=== PATIENT | male | born 1950 | race Caucasian/White ===

== ENCOUNTER → 2020-08-07 15:10 | Outpatient (BNVA) | payer MEDICARE, SELFPAY | PROVIDERS: PCP Family Medicine; Visit Provider Urology | DX: Z01.818 Encounter for other preprocedural examination (principal); N40.1 Benign prostatic hyperplasia with lower urinary tract symptoms; N13.8 Other obstructive and reflux uropathy; C67.9 Malignant neoplasm of bladder, unspecified | CPT/HCPCS: 99212 ==

== ENCOUNTER → 2020-09-12 10:51 | Outpatient (BNVA) | payer MEDICARE, SELFPAY | PROVIDERS: PCP Family Medicine; Visit Provider Urology | DX: Z76.89 Persons encountering health services in other specified circumstances (principal) | CPT/HCPCS: 99212 ==

== ENCOUNTER 2020-11-07 06:35 | Outpatient (REF) | payer MEDICARE, SELFPAY ==
[2020-11-07 11:25] LABS: Estimated Average Glucose 94 mg/dL; Hemoglobin A1c % 4.9 %
[2020-11-07 11:48] LABS: Alanine Aminotransferase 36 U/L (0-40); Anion Gap 13 (12-20); Blood Urea Nitrogen 18 mg/dL (9-16); Carbon Dioxide 30 mmol/L (22-29); Chloride 106 mmol/L (96-108); Cholesterol 231 mg/dL; Estimated Glomerular Filt Rate > 60; Glucose Fasting 93 mg/dL (60-99); HDL Cholesterol 28 mg/dL; LDL Cholesterol Calculated 158 mg/dl; Potassium 4.1 mmol/L (3.3-5.1); Sodium 145 mmol/L (135-145); Triglycerides 225 mg/dL
[2020-11-07 12:25] LABS: Creatinine Urine 135.16 mg/dL; Microalbum/Creatinine Ratio Ur 134.6 ug/mg cr
== END 2020-11-07 06:36 | disposition home or self-care (01) ==
LOC: HO.HMGCLDS 06:35
PROVIDERS: PCP Family Medicine; Visit Provider Family Medicine
DX: E11.9 Type 2 diabetes mellitus without complications (principal); E78.00 Pure hypercholesterolemia, unspecified; I10 Essential (primary) hypertension; Z79.899 Other long term (current) drug therapy
CPT/HCPCS: 36415; 80051; 80061; 82043; 82550; 82565; 82947; 83036; 84460; 84520

== ENCOUNTER 2020-12-04 14:50 | Outpatient (REF) | payer MEDICARE, SELFPAY | END 2020-12-04 14:51 | disposition home or self-care (01) | LOC: CF 14:50 | PROVIDERS: PCP Family Medicine; Visit Provider Urology | DX: C67.9 Malignant neoplasm of bladder, unspecified (principal) | CPT/HCPCS: 52000; 81002; 88112; 99212 ==

== ENCOUNTER 2020-12-22 11:21 | Day surgery (SDC) | payer MEDICARE, SELFPAY ==
[2020-12-16 15:05] VITALS: BMI 38.0
--- NOTE | 2020-12-17 13:06 | HO.ANESPROP2 ---
Documented by User: Kenna Alexander 12/17/20 13:11 HPI - Anesthesia Eval Consult details Narrative: 70yo M for TUR Bladder Tumor,gemcitabine insertion Pt was cardiac cleared for TKA in 08/2020. (Didn't have knee surgery.) Cardiac status remains stable per telephone eval. PMFSH Active Problems Active Problems: All Active Problems (Updated 12/16/20 @ 15:14 by Jo Ann Nieves) Hydrocele (Acute) Bladder cancer (Acute) BPH w urinary obs/LUTS (Acute) Past Medical History Medical History (Updated 12/19/20 @ 10:54 by Kenna Alexander) Arthritis CAD (coronary artery disease) COVID-19 vaccine administered Elevated cholesterol GERD (gastroesophageal reflux disease) History of renal cell cancer Hx of bladder cancer On beta maria antonia at home Surgical History Surgical History (Updated 12/16/20 @ 15:13 by Jo Ann Nieves) History of bladder surgery History of nephrectomy, right Hx of cystoscopy Hx of heart artery stent Social History Social History (Updated 12/16/20 @ 15:15 by Jo Ann Nieves) Are you a primary respiratory care practitioner to a significant other at home: No Do you presently have visiting nurse or other home services: No Smoking Status: Never smoker Use of substances other than those prescribed or required for medical reasons: No Have you been hit, kicked, punched, or otherwise hurt by someone within the past year? If so, by whom?: No Advance Directives Information Provided: No Recently lost weight without trying: No Meds Allergies Allergy/AdvReac Type Severity Reaction Status Date / Time No Known Allergies Allergy Verified 12/16/20 15:05 [No Known Allergies*] Home Medications Medication Instructions Recorded Confirmed Last Taken Type carvedilol 6.25 mg tablet 6.25 mg PO BID 08/07/20 12/16/20 Unknown History gabapentin 600 mg tablet 600 mg PO BEDTIME 08/07/20 12/16/20 Unknown History isosorbide mononitrate 30 mg 30 mg PO DAILY 08/07/20 12/16/20 Unknown History tablet,extended release 24 hr losartan 50 mg tablet 50 mg PO DAILY 08/07/20 12/16/20 Unknown History omeprazole 20 mg capsule,delayed 20 mg PO DAILY 08/07/20 12/16/20 Unknown History release tramadol 50 mg tablet mg PO 08/07/20 Unknown History amlodipine 10 mg tablet 10 mg PO DAILY 09/12/20 12/16/20 Unknown History betamethasone, augmented 0.05 % appl TOPICAL BID 09/12/20 Unknown History topical cream docusate sodium 100 mg capsule 100 mg PO BID 09/12/20 Unknown History aspirin [Aspirin Low Dose] 81 mg PO DAILY 12/16/20 12/16/20 Unknown History hydralazine 25 mg PO TID 12/16/20 12/16/20 Unknown History loratadine 10 mg PO DAILY 12/16/20 12/16/20 Unknown History Exam Exam Date and Time: December 17, 2020 1306 Height,Weight and Vital Signs: Height 6 ft Weight 127.006 kg Pertinent Lab Results Pertinent Lab Results: Laboratory Tests 07/09/19 11/07/20 06:30 06:48 WBC 6.7 Hgb 12.7 L Hct 38.9 L Plt Count 194 Sodium 145 Potassium 4.1 Chloride 106 Carbon Dioxide 30 H BUN 18 H Creatinine 1.12 Narrative Narrative: EKG 08/2020 NSR No significant change compared to 07/2019 LVEF 62% in 2019 per cardiology office note Assessment and Plan Assessment Anesthesia Assessment: Chart Reviewed Documented by User: Cielo Salguero 12/22/20 13:40 [facility] Past Medical History Medical History (Updated 12/19/20 @ 10:54 by Kenna Alexander) Arthritis CAD (coronary artery disease) COVID-19 vaccine administered Elevated cholesterol GERD (gastroesophageal reflux disease) History of renal cell cancer Hx of bladder cancer On beta maria antonia at home Surgical History Surgical History (Updated 12/16/20 @ 15:13 by Jo Ann Nieves) History of bladder surgery History of nephrectomy, right Hx of cystoscopy Hx of heart artery stent Social History Social History (Updated 12/16/20 @ 15:15 by Jo Ann Nieves) Are you a primary respiratory care practitioner to a significant other at home: No Do you presently have visiting nurse or other home services: No Smoking Status: Never smoker Use of substances other than those prescribed or required for medical reasons: No Have you been hit, kicked, punched, or otherwise hurt by someone within the past year? If so, by whom?: No Advance Directives Information Provided: No Recently lost weight without trying: No Meds Allergies Allergy/AdvReac Type Severity Reaction Status Date / Time No Known Allergies Allergy Verified 12/16/20 15:05 [No Known Allergies*] Home Medications Medication Instructions Recorded Confirmed Last Taken Type carvedilol 6.25 mg tablet 6.25 mg PO BID 08/07/20 12/16/20 Unknown History gabapentin 600 mg tablet 600 mg PO BEDTIME 08/07/20 12/16/20 Unknown History isosorbide mononitrate 30 mg 30 mg PO DAILY 08/07/20 12/16/20 Unknown History tablet,extended release 24 hr losartan 50 mg tablet 50 mg PO DAILY 08/07/20 12/16/20 Unknown History omeprazole 20 mg capsule,delayed 20 mg PO DAILY 08/07/20 12/16/20 Unknown History release tramadol 50 mg tablet mg PO 08/07/20 Unknown History amlodipine 10 mg tablet 10 mg PO DAILY 09/12/20 12/16/20 Unknown History betamethasone, augmented 0.05 % appl TOPICAL BID 09/12/20 Unknown History topical cream docusate sodium 100 mg capsule 100 mg PO BID 09/12/20 Unknown History aspirin [Aspirin Low Dose] 81 mg PO DAILY 12/16/20 12/16/20 Unknown History hydralazine 25 mg PO TID 12/16/20 12/16/20 Unknown History loratadine 10 mg PO DAILY 12/16/20 12/16/20 Unknown History Exam Airway Mallampati Class: II (Cap lower mouth) TM Dist: >3cm Neck ROM: Full Heart: RRR Lungs: CTA BL Assessment and Plan Assessment Anesthesia Assessment: Anesthesia Plan Discussed and Chart Reviewed Final Anesthetic Review NPO: Yes ASA Class: III Final Preanesthetic Review: Meds/Allgs Chart Reviewed and Consent Obtained/Reviewed Patient Risk: Intermediate Procedure Risk: Intermediate Anesthetic Plan Anesthetic Plan: GA Disposition: Standard PACU
[2020-12-22] VITALS (10 sets, daily range): BP systolic 147–179; BP diastolic 90–110; PULSE 66–82; RESP 14–18; TEMP 36.3–36.6; O2SAT 92–97
[2020-12-22] MEDS: levoFLOXacin 500 MG TABLET PO (12:16)
[2020-12-22] MEDS: Lactated Ringers 1,000 ML 50 ML IV (12:23)
--- NOTE | 2020-12-22 13:54 | MHC.SHP ---
Pre-Procedural Eval Section A The patient is an INPATIENT: No Changes since office visit: No Cold of Flu in the past 2 weeks, No New Medical Problems, No Changes in Medication and No Patient answered all questions The History & Physical has been completed within 30 days and I have reviewed it.: Yes Section B Chief Complaint: bladder cancer Allergies: Allergies Allergy/AdvReac Type Severity Reaction Status Date / Time No Known Allergies Allergy Verified 12/16/20 15:05 [No Known Allergies*] Plan Diagnosis/Plan: Unchanged (cysto, TURBT and gemcitabine) I have reviewed the history and physical and performed a pertinent physical examination on my patient. No changes have occurred unless specified.
--- NOTE | 2020-12-22 14:53 | PM.OP ---
Brief Operative Note Date of Service: 12/22/20 Pre-op diagnosis: Recurrent bladder tumor Post-op diagnosis: same Procedure: 1. TURBT 2. Gemcitabine placement Surgeon: Charan Baker MD Anesthesia: GLMA Estimated blood loss (mL): 0 Pathology: other Condition: stable Disposition: same day
--- NOTE | 2020-12-22 14:54 | P.OP_ITS ---
Operative Note Operative Note Date of Service: 12/22/20 Narrative: PreOperative Diagnosis: Recurrent bladder tumor Post Operative Diagnosis: Recurrent bladder tumor Procedure: TURBT, mitomycin-C installation Surgeon: Dr Charan Baker Anesthesia: General Indications for procedure: Superficial bladder cancer. Recurring tumors seen in office. Recommendation for TURBT and repeat gemcitabine. Procedure: After informed consent was verified the patient was brought to the operating room and placed in a supine position. Anesthesia was administered per protocol. Patient was placed in modified dorsal lithotomy position and prepped and draped in sterile fashion. Safety pause time-out performed. Antibiotics have been given. Resectoscope was introduced per urethra. The 1st lesion was seen on the side of urethra approximately [address] on the left side. We went past this in the 2nd lesion was at the bladder neck junction running back towards the left ureteric orifice. TURBT was performed on the lesion running up to the bladder junction. Was within 1 cm of the left ureteric orifice. There were no other lesions seen within the bladder. This was medium-sized. We came back along prostatic fossa. There was the 2 other small lesions coming down over the neck the bladder into the prostatic fossa. The previously been a TURP performed. The final area with the lesion was on the urethra were pedunculated lesion was on the sidewall. This was resected and fulgurated. Bladder tumor was collected and sent for analysis. A [address] [place] [address] Rosa catheter was placed at the completion of the procedure and 2 g gemcitabine 100 cc normal saline was instilled. This will sit for 60 minutes and then be washed through the bladder with 3 L of normal saline. Patient was transferred in stable condition to the recovery area. Pathology: Bladder tumor Drains: Three way Rosa catheter with gemcitabine
[2020-12-22] MEDS: Labetalol HCL 100 MG/20 ML VIAL IVPUSH (15:05)
[2020-12-22] MEDS: fentaNYL citrate/PF 100 MCG/2 ML VIAL 50 MCG IVPUSH (15:15)
== END 2020-12-22 17:26 | disposition home or self-care (01) ==
PROVIDERS: PCP Family Medicine; Visit Provider Urology
PROC: 0TBB8ZZ Excision of Bladder, Via Natural or Artificial Opening Endoscopic (ICD-10-PCS; CPT 52235; principal; 2020-12-22 13:00)
DX: C67.9 Malignant neoplasm of bladder, unspecified (principal); Z85.528 Personal history of other malignant neoplasm of kidney; Z90.5 Acquired absence of kidney; Z79.82 Long term (current) use of aspirin; Z79.899 Other long term (current) drug therapy
CPT/HCPCS: 52235; 51720; 88307; J1100; J2405; J3010; J9201

== ENCOUNTER 2020-12-25 07:25 | Outpatient (REF) | payer MEDICARE, SELFPAY ==
--- NOTE | ~2020-12-25 | CT_ITS ---
EXAMINATION: CT ABDOMEN AND PELVIS WITHOUT AND WITH CONTRAST CLINICAL INFORMATION: Gross hematuria. R 31.0. Prior history right urinary tract transitional cell cancer. COMPARISON: CT abdomen and pelvis without and with contrast 06/21/2019. TECHNIQUE: Noncontrast CT of the abdomen and pelvis is performed followed by split bolus contrast-enhanced images using 85 mL Omnipaque 350 contrast.? Postcontrast imaging is performed during the combined nephrogram and excretion phase. Sagittal and coronal reformatted images were obtained on the technologist's workstation for both the precontrast and postcontrast phases. This CT examination was performed using dose optimization techniques as appropriate, variously including the following: *Automated exposure control *Adjustment of mA and/or kV according to patient size (this includes techniques or standardized protocols for targeted exams where dose is matched to indication/reason for exam; i.e. extremities or head) *Use of iterative reconstruction technique DLP: 1536 mGy-cm FINDINGS: LUNG BASES: The visualized lung bases are unremarkable. LIVER, GALLBLADDER, AND BILIARY TREE: The liver is normal in size, shape, and attenuation. No focal hepatic lesion or biliary ductal dilatation is present. There are small dependent calculi in the gallbladder again seen. No gallbladder wall thickening or pericholecystic inflammatory changes. Common duct is unremarkable. PANCREAS: Unremarkable. SPLEEN: Normal in size and homogeneous. Incidental splenule again noted left upper quadrant 1.8 cm. ADRENAL GLANDS: Unremarkable. KIDNEYS AND URETERS: Prior right nephrectomy. No mass right renal bed. The left kidney measures 15.3 x 7.4 x 9.2 cm and shows normal parenchymal enhancement with normal thickness. There is a punctate cortical cyst posterior midpole approximately 0.6 cm similar to prior exam 06/21/2019. Again, there are multiple parapelvic cysts in the left renal sinus. There is no left urinary tract calculi, hydronephrosis, hydroureter, or perinephric stranding. No mucosal thickening or filling defect. BLADDER: Unremarkable. GASTROINTESTINAL TRACT: No bowel obstruction or inflammatory changes in the bowel or mesentery. Normal appendix. No ascites or fluid collection. Diverticulosis distal descending and sigmoid colon. ABDOMINAL WALL: No significant hernia is appreciated. LYMPH NODES: No interval lymphadenopathy. Again, there are stable nodes central mesentery and portal caval space, largest 1.3 cm short axis, coronal series . Small solitary inguinal nodes stable, right 1.2 cm. No interval retroperitoneal adenopathy. VASCULAR: Unremarkable. PELVIC VISCERA: Unremarkable. OSSEUS STRUCTURES: Unremarkable. CT/CT urogram IMPRESSION: 1. Status post right nephrectomy. No interval adenopathy. 2. Unremarkable left urinary tract. Stable parapelvic cysts and tiny cortical cyst. No visible mucosal lesion or calculi.
[2020-12-25 08:11] LABS: Urine Cytology See Pathology rpt
[2020-12-25 08:47] LABS: Anion Gap 12 (12-20); Blood Urea Nitrogen 22 mg/dL (9-16); Calcium 8.6 mg/dL (8.4-10.2); Carbon Dioxide 28 mmol/L (22-29); Chloride 108 mmol/L (96-108); Estimated Glomerular Filt Rate 58; Glucose Fasting 102 mg/dL (60-99); Potassium 4.5 mmol/L (3.3-5.1); Sodium 143 mmol/L (135-145)
== END 2020-12-25 07:26 | disposition home or self-care (01) ==
LOC: HO.CT 07:25
PROVIDERS: Visit Provider Urology
DX: C67.9 Malignant neoplasm of bladder, unspecified (principal); R31.0 Gross hematuria
CPT/HCPCS: 36415; 74178; 80048; 88112; Q9967

== ENCOUNTER → 2021-01-13 14:30 | Outpatient (BNVA) | payer MEDICARE, SELFPAY | PROVIDERS: PCP Family Medicine; Visit Provider Urology | DX: C67.9 Malignant neoplasm of bladder, unspecified (principal); C79.00 Secondary malignant neoplasm of unspecified kidney and renal pelvis; E78.00 Pure hypercholesterolemia, unspecified; Z90.5 Acquired absence of kidney | CPT/HCPCS: 99212 ==

== ENCOUNTER 2021-04-14 07:39 | Outpatient (REF) | payer MEDICARE, SELFPAY ==
--- NOTE | 2021-04-14 07:46 | ECG_ITS ---
Test Reason : PREOP Blood Pressure : / mmHG Vent. Rate : 069 BPM Atrial Rate : 069 BPM P-R Int : 158 ms QRS Dur : 102 ms QT Int : 430 ms P-R-T Axes : 016 013 055 degrees QTc Int : 460 ms Normal sinus rhythm Normal ECG No previous ECGs available Referred By: Topher Cuadra Electronically Signed By:CAMI PRASAD
[2021-04-14 07:56] LABS: MANUAL DIFF FLAG NO
[2021-04-14 07:59] LABS: Basophils Percent Auto 0.5 % (0-2); Eosinophils Absolute Auto 0.3 X10*3/uL (0.0-0.4); Eosinophils Percent Auto 4.7 % (0-4); Hematocrit 41.7 % (42-52); Hemoglobin 13.5 g/dl (14.0-18.0); Imm Gran Abs Auto 0.02 X10*3/uL (0.00-0.03); Imm Gran Pct Auto 0.3 % (0.0-0.4); Lymphocytes Absolute Auto 1.4 X10*3/uL (1.2-4.9); Lymphocytes Percent Auto 20.9 % (20-40); Mean Corpuscular HGB Conc 32.4 g/dl (31.0-36.0); Mean Corpuscular Hemoglobin 30.8 pg (27.0-33.0); Mean Platelet Volume 9.8 fL (9.4-12.4); Monocytes Absolute Auto 0.5 X10*3/uL (0.1-1.2); Monocytes Percent Auto 7.7 % (2-11); Neutrophils Absolute Auto 4.3 X10*3/uL (2.0-8.3); Neutrophils Percent Auto 65.9 % (45-73); Platelet Count 166 X10*3/uL (160-400); Red Blood Count 4.39 X10*6/uL (4.60-5.80); Red Cell Distribution Width 13.8 % (11.0-16.0); White Blood Count 6.6 X10*3/uL (4.8-10.8)
[2021-04-14 08:18] LABS: Anion Gap 13 (12-20); Blood Urea Nitrogen 18 mg/dL (9-16); Calcium 9.1 mg/dL (8.4-10.2); Carbon Dioxide 27 mmol/L (22-29); Chloride 107 mmol/L (96-108); Estimated Glomerular Filt Rate > 60; Glucose Random 109 mg/dL (60-115); Potassium 4.3 mmol/L (3.3-5.1); Sodium 143 mmol/L (135-145)
[2021-04-14 08:26] LABS: Glucose Urine UA NEG (NEG); Leukocyte Esterase Urine NEG (NEG); Nitrite Urine NEG (NEG); PH 5.5 (5.0-8.0); Specific Gravity - Urine >= 1.030 (1.005-1.025); Urine Blood TRACE (NEG); Urine Ketones NEG (NEG); Urine Protein TRACE MG/DL (NEG-TRACE)
[2021-04-14 08:28] LABS: Appearance Urine CLEAR; Color Urine YELLOW
[2021-04-14 08:47] LABS: Estimated Average Glucose 114 mg/dL; Hemoglobin A1c % 5.6 %
== END 2021-04-14 07:40 | disposition home or self-care (01) ==
LOC: HO.LAB 07:39
PROVIDERS: PCP Family Medicine; Visit Provider Family Medicine
DX: Z01.818 Encounter for other preprocedural examination (principal)
CPT/HCPCS: 36415; 80048; 81001; 83036; 85025; 93005

== ENCOUNTER → 2021-04-17 12:50 | Outpatient (BNVA) | payer MEDICARE, SELFPAY | PROVIDERS: PCP Family Medicine; Visit Provider Urology | DX: C67.9 Malignant neoplasm of bladder, unspecified (principal) | CPT/HCPCS: 52000; 99212 ==

== ENCOUNTER 2021-07-28 08:52 | Outpatient (REF) | payer MEDICARE, SELFPAY ==
[2021-07-28 11:39] LABS: MANUAL DIFF FLAG NO
[2021-07-28 11:50] LABS: Basophils Percent Auto 0.5 % (0-2); Eosinophils Absolute Auto 0.4 X10*3/uL (0.0-0.4); Eosinophils Percent Auto 6.1 % (0-4); Hematocrit 42.4 % (42-52); Hemoglobin 13.2 g/dl (14.0-18.0); Imm Gran Abs Auto 0.01 X10*3/uL (0.00-0.03); Imm Gran Pct Auto 0.2 % (0.0-0.4); Lymphocytes Absolute Auto 1.3 X10*3/uL (1.2-4.9); Lymphocytes Percent Auto 20.4 % (20-40); Mean Corpuscular HGB Conc 31.1 g/dl (31.0-36.0); Mean Corpuscular Hemoglobin 28.9 pg (27.0-33.0); Mean Corpuscular Volume 92.8 fL (80-98); Mean Platelet Volume 10.8 fL (9.4-12.4); Monocytes Absolute Auto 0.5 X10*3/uL (0.1-1.2); Monocytes Percent Auto 8.3 % (2-11); Neutrophils Absolute Auto 4.2 X10*3/uL (2.0-8.3); Neutrophils Percent Auto 64.5 % (45-73); Platelet Count 179 X10*3/uL (160-400); Red Blood Count 4.57 X10*6/uL (4.60-5.80); Red Cell Distribution Width 13.4 % (11.0-16.0); White Blood Count 6.4 X10*3/uL (4.8-10.8)
[2021-07-28 12:02] LABS: Estimated Glomerular Filt Rate > 60
[2021-07-28 12:05] LABS: Appearance Urine HAZY; Color Urine YELLOW; Glucose Urine UA NEG (NEG); Leukocyte Esterase Urine NEG (NEG); Nitrite Urine NEG (NEG); Specific Gravity - Urine 1.025 (1.005-1.025); Urine Blood TRACE (NEG); Urine Ketones NEG (NEG); Urine Protein 1+ MG/DL (NEG-TRACE)
[2021-07-28 12:07] LABS: Estimated Average Glucose 108 mg/dL; Hemoglobin A1c % 5.4 %
[2021-07-28 12:24] LABS: Anion Gap 12 (12-20); Blood Urea Nitrogen 16 mg/dL (9-16); Carbon Dioxide 30 mmol/L (22-29); Chloride 104 mmol/L (96-108); Glucose Fasting 100 mg/dL (60-99); Potassium 4.4 mmol/L (3.3-5.1); Sodium 142 mmol/L (135-145)
[2021-07-28 12:37] LABS: WBC Urine 0-2 /HPF (0-4)
== END 2021-07-28 08:53 | disposition home or self-care (01) ==
LOC: HO.HMGCLDS 08:52
PROVIDERS: Urology; PCP Family Medicine; Visit Provider Family Medicine
DX: I10 Essential (primary) hypertension (principal); D64.9 Anemia, unspecified; E11.9 Type 2 diabetes mellitus without complications; N26.1 Atrophy of kidney (terminal); C67.9 Malignant neoplasm of bladder, unspecified
CPT/HCPCS: 36415; 80051; 81001; 82565; 82947; 83036; 84520; 85025

== ENCOUNTER → 2021-08-21 14:45 | Outpatient (BNVA) | payer MEDICARE, SELFPAY | PROVIDERS: PCP Family Medicine; Visit Provider Urology | DX: N40.1 Benign prostatic hyperplasia with lower urinary tract symptoms (principal); N13.8 Other obstructive and reflux uropathy; C67.9 Malignant neoplasm of bladder, unspecified; C66.9 Malignant neoplasm of unspecified ureter | CPT/HCPCS: 52000; 99212 ==

== ENCOUNTER → 2021-11-19 08:39 | Outpatient (BNVA) | payer MEDICARE, SELFPAY | PROVIDERS: Visit Provider Urology | DX: N43.3 Hydrocele, unspecified (principal); C67.9 Malignant neoplasm of bladder, unspecified | CPT/HCPCS: 52000; 99212 ==

== ENCOUNTER 2021-12-14 09:32 | Day surgery (SDC) | payer MEDICARE, SELFPAY ==
[2021-12-07 20:14] VITALS: BMI 40.0
--- NOTE | 2021-12-11 13:33 | PC.NURSE ---
verified with Opal in pharmacy that order has been received for gemcitabine.
[2021-12-14] VITALS (7 sets, daily range): BP systolic 122–195; BP diastolic 81–106; PULSE 78–87; RESP 18–20; TEMP 36.4–36.6; O2SAT 94–95
--- NOTE | 2021-12-14 10:51 | PC.NURSE ---
ANESTHESIA AWARE PT STS ATE ANTONIETTA SMITH HAD N/V/D LAST NIGHT DENIES FEVER CHILLS RESOLVED SYMPTOMS
--- NOTE | 2021-12-14 11:25 | MHC.SHP ---
Pre-Procedural Eval Section A Date of Service: 12/14/21 The patient is an INPATIENT: No Changes since office visit: No Cold of Flu in the past 2 weeks, No New Medical Problems, No Changes in Medication and No Patient answered all questions The History & Physical has been completed within 30 days and I have reviewed it.: Yes Section B Chief Complaint: hydrocele, neoplasm of bladder Details of Present Illness: right hydrocele, bladder cancer lesion on urethra. Allergies: Allergies Allergy/AdvReac Type Severity Reaction Status Date / Time No Known Allergies Allergy Verified 11/19/21 08:55 [No Known Allergies*] Plan Diagnosis/Plan: Unchanged ( Right hydrocelectomy followed by cystoscopy with removal of small bladder tumor from urethra and gemcitabine installation) I have reviewed the history and physical and performed a pertinent physical examination on my patient. No changes have occurred unless specified.
--- NOTE | 2021-12-14 11:58 | HO.ANESPROP2 ---
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 (Acute) Denies recent chest pain Past Medical History Medical History (Updated 12/07/21 @ 20:12 by Clarita Moore RN) Arthritis CAD (coronary artery disease) COVID-19 vaccine administered Elevated cholesterol GERD (gastroesophageal reflux disease) History of renal cell cancer Hx of bladder cancer Hypertension On beta maria antonia at home Family History Family history of problems with anesthesia: No Surgical History Surgical History (Updated 12/08/21 @ 08:44 by Radha Mata RN) History of bladder surgery History of nephrectomy, right History of total left knee replacement (TKR) Hx of cystoscopy Hx of heart artery stent History of Problems with Anesthesia: No Social History Social History Are you a primary complex care nurse practitioner to a significant other at home: No Do you presently have visiting nurse or other home services: No Patient Tobacco Use Status: Never used Tobacco Use of substances other than those prescribed or required for medical reasons: No Are you DNR?: No Advance Directives: No Advance Directives Information Provided: No Advance Directives on File: No Recently lost weight without trying: No Nutrition Risks: No Nutritional Risk Meds Allergies Allergy/AdvReac Type Severity Reaction Status Date / Time No Known Allergies Allergy Verified 11/19/21 08:55 [No Known Allergies*] Active Medications: Current Medications Gemcitabine HCl 1,000 mg/ (Sodium Chloride) 50 mls @ 50 mls/hr INTRAVESIC ONCE PAIGE Stop: 12/14/21 23:59 Gemcitabine HCl 1,000 mg/ (Sodium Chloride) 50 mls @ 50 mls/hr INTRAVESIC ONCE PAIGE Stop: 12/14/21 23:59 Levofloxacin (Levaquin) 500 mg in 100 mls @ 100 mls/hr IV PREOP ONE Stop: 12/14/21 12:45 Lidocaine HCl (Lidocaine Hcl 2 % Urojet 10 Ml Jel.Pf.Adilson) 10 ml TOPICAL ONCE PAIGE Stop: 12/14/21 23:59 Home Medications Medication Instructions Recorded Confirmed Last Taken Type isosorbide mononitrate 30 mg 30 mg PO DAILY 08/07/20 12/07/21 12/14/21 History tablet,extended release 24 hr losartan 50 mg tablet 50 mg PO DAILY 08/07/20 12/07/21 Unknown History omeprazole 20 mg capsule,delayed 20 mg PO DAILY 08/07/20 12/07/21 12/14/21 History release tramadol 50 mg tablet 50 mg PO NEEDED 08/07/20 12/07/21 Unknown History amlodipine 10 mg tablet 10 mg PO DAILY 09/12/20 12/07/21 12/14/21 History betamethasone, augmented 0.05 % 1 appl TOPICAL BID 09/12/20 12/07/21 Unknown History topical cream aspirin 81 mg tablet,delayed 81 mg PO DAILY 12/16/20 12/07/21 12/08/21 History release (Aspirin Low Dose) loratadine 10 mg tablet 10 mg PO DAILY 12/16/20 12/07/21 Unknown History gabapentin 600 mg tablet 600 mg PO BEDTIME tab 01/13/21 12/07/21 Unknown History blood sugar diagnostic #10 ea 04/17/21 Unknown History carvedilol 25 mg tablet 50 mg PO BID 04/17/21 12/07/21 Unknown History gabapentin 300 mg capsule 300 mg PO DAILY 04/17/21 12/07/21 Unknown History hydralazine 50 mg tablet 50 mg PO TID 04/17/21 12/07/21 12/14/21 History Exam Exam Date and Time: December 14, 2021 1158 Height,Weight and Vital Signs: Height 6 ft Weight 133.81 kg Last Vital Signs Temp 98 F 12/14/21 10:35 Pulse 84 12/14/21 10:35 Resp 19 12/14/21 10:35 BP 143/83 H 12/14/21 10:50 Pulse Ox 95 12/14/21 10:35 Airway Mallampati Class: II TM Dist: >3cm Neck ROM: Full Heart: RRR Lungs: CTAB Assessment and Plan Assessment Anesthesia Assessment: Anesthesia Plan Discussed and Chart Reviewed Final Anesthetic Review Family History of Problems with Anesthesia: No History of Problems with Anesthesia: No NPO: Yes ASA Class: III Final Preanesthetic Review: No Changes in Pt Med Stat, Meds/Allgs Chart Reviewed, Consent Obtained/Reviewed and Anes Risks/Benef Reviewed Patient Risk: Intermediate Procedure Risk: Low Assessment/Block/Sedation in SS: Assess/Block/Sedation-SS Anesthetic Plan Anesthetic Plan: GA Disposition: Standard PACU
--- NOTE | 2021-12-14 12:00 | W.PM.OPN ---
Operative Note Operative Note Date of Service: 12/14/21 Narrative: PreOperative Diagnosis: right hydrocele with superficial transitional cell carcinoma of urethra Post Operative Diagnosis: above Procedure: Right Hydrocelectomy, Cystoscopy with removal of urethral bladder cnacer and fulgeration Surgeon: Dr Charan Baker Anesthesia: General Indications for procedure: Hydrocele with persistent discomfort right side with urethral bladder cancer of pendulous urethra Procedure: After informed consent was verified the patient was brought to the operating room and placed in a supine position. Anesthesia was administered per protocol. Patient was appropriately shaved and genitals were prepped and draped in sterile fashion. Safety pause time-out was performed. Antibiotics being given. Local anesthetic was infiltrated under the skin in a horizontal fashion on the scrotum. Skin incision was made using a blade through the subdermal layer. The tunica around the testicle was elevated and dissected free from surrounding tissue. The avascular plane around the tunica was entered and using a wet sponge blunt dissection was performed. Any small bleeding perforators were cauterized. The testicle was delivered out of the scrotum and opened in a longitudinal fashion.. Fluid was removed. The testicle sac was inverted. Excess thickened sac was dissected and removed using a Thunderbeat cautery instrument to minimize porst procedure bleeding. A bottle neck procedure was performed to approximate edges using a running 3-0 Vicryl suture. Skin edges of the tunica were cauterized carefully in order to try to minimize postprocedure hematoma. Small accessory appendices were removed from the head of epididymis. The testicle with resected sac was placed back into a dependent portion of the scrotum. Overlying skin fascia layer was closed with a running 3-0 Vicryl suture. Skin was closed with interrupted 4-0 chromic sutures. Cystoscopy was performed. At the base of the pendulous urethra a 1 cm transitional cell carcinoma was seen on a stalk attached to the urethra. Using a pair of biopsy forceps the 1 cm transitional cell carcinoma was grasped and removed. Bugby fulguration was then performed. Specimen sent for pathology. Soft fluff sponges were placed with mesh pants as dressing. Local anesthetic was placed in inguinal cord for post procedure pain relief. Patient tolerated procedure well was extubated in operating room transferred in stable condition to the recovery area Pathology: Hydrocele sac, bladder cancer specimen Drains: none
[2021-12-14] MEDS: Acetaminophen 325 MG TABLET 650 MG PO (14:55)
[2021-12-14] MEDS: Phenazopyridine HCL 100 MG TABLET PO (14:55)
== END 2021-12-14 15:29 | disposition home or self-care (01) ==
PROVIDERS: PCP Family Medicine; Visit Provider Urology
PROC: 0TJB8ZZ Inspection of Bladder, Via Natural or Artificial Opening Endoscopic (ICD-10-PCS; CPT 52000; principal; 2021-12-14 12:20)
PROC: (CPT 55060; 2021-12-14 12:20)
DX: C68.0 Malignant neoplasm of urethra (principal); N43.3 Hydrocele, unspecified; D17.6 Benign lipomatous neoplasm of spermatic cord; Z85.528 Personal history of other malignant neoplasm of kidney; Z90.5 Acquired absence of kidney; I10 Essential (primary) hypertension; E78.00 Pure hypercholesterolemia, unspecified; I25.10 Atherosclerotic heart disease of native coronary artery without angina pectoris; Z98.61 Coronary angioplasty status; Z79.82 Long term (current) use of aspirin; Z79.899 Other long term (current) drug therapy
CPT/HCPCS: 55040; 52234; 88304; 88307; J1956; J2370; J2405; J3010; J9201

== ENCOUNTER 2022-01-06 08:15 | Outpatient (REF) | payer MEDICARE, SELFPAY ==
[2022-01-06 12:55] LABS: Anion Gap 11 (12-20); Blood Urea Nitrogen 19 mg/dL (9-16); Carbon Dioxide 32 mmol/L (22-29); Chloride 106 mmol/L (96-108); Estimated Glomerular Filt Rate > 60; Potassium 4.3 mmol/L (3.3-5.1); Sodium 145 mmol/L (135-145)
== END 2022-01-06 08:16 | disposition home or self-care (01) ==
LOC: HO.HMGCLDS 08:15
PROVIDERS: PCP Family Medicine; Visit Provider Family Medicine
DX: I10 Essential (primary) hypertension (principal)
CPT/HCPCS: 36415; 80051; 82565; 84520

== ENCOUNTER → 2022-02-17 11:05 | Outpatient (BNVA) | payer MEDICARE, SELFPAY | PROVIDERS: PCP Family Medicine; Visit Provider Urology | DX: N40.1 Benign prostatic hyperplasia with lower urinary tract symptoms (principal); N13.8 Other obstructive and reflux uropathy | CPT/HCPCS: 99212 ==

== ENCOUNTER 2022-03-30 08:07 | Outpatient (REF) | payer MEDICARE, SELFPAY ==
[2022-03-30 12:00] LABS: Estimated Average Glucose 105 mg/dL; Hemoglobin A1c % 5.3 %
[2022-03-30 12:13] LABS: Alanine Aminotransferase 23 U/L (0-40); Aspartate Amino Transferase 18 U/L (5-37); Cholesterol 217 mg/dL; Glucose Fasting 106 mg/dL (60-99); HDL Cholesterol 26 mg/dL; LDL Cholesterol Calculated 150 mg/dl; Triglycerides 205 mg/dL
== END 2022-03-30 08:08 | disposition home or self-care (01) ==
LOC: HO.HMGCLDS 08:07
PROVIDERS: Absent Provider Internal Medicine Cardiovascular Disease; PCP Family Medicine; Visit Provider Family Medicine
DX: E78.00 Pure hypercholesterolemia, unspecified (principal); E11.9 Type 2 diabetes mellitus without complications; K75.81 Nonalcoholic steatohepatitis (NASH)
CPT/HCPCS: 36415; 80061; 82947; 83036; 84450; 84460

== ENCOUNTER 2022-05-21 09:55 | Outpatient (REF) | payer MEDICARE, SELFPAY ==
[2022-05-21 16:36] LABS: Urine Cytology See Pathology rpt
== END 2022-05-21 09:56 | disposition home or self-care (01) ==
LOC: HO.LAB 09:55
PROVIDERS: Visit Provider Urology
DX: C67.9 Malignant neoplasm of bladder, unspecified (principal); L90.0 Lichen sclerosus et atrophicus
CPT/HCPCS: 52000; 88112; 99212

== ENCOUNTER 2022-06-02 08:31 | Outpatient (REF) | payer MEDICARE, SELFPAY ==
[2022-06-02 11:16] LABS: MANUAL DIFF FLAG NO
[2022-06-02 11:27] LABS: Basophils Percent Auto 0.6 % (0-2); Eosinophils Absolute Auto 0.3 X10*3/uL (0.0-0.4); Eosinophils Percent Auto 5.9 % (0-4); Hematocrit 42.1 % (42.0-52.0); Hemoglobin 12.9 g/dl (14.0-18.0); Imm Gran Abs Auto 0.01 X10*3/uL (0.00-0.03); Imm Gran Pct Auto 0.2 % (0.0-0.4); Lymphocytes Percent Auto 18.6 % (20-40); Mean Corpuscular HGB Conc 30.6 g/dl (31.0-36.0); Mean Corpuscular Hemoglobin 28.4 pg (27.0-33.0); Mean Corpuscular Volume 92.7 fL (80.0-98.0); Monocytes Absolute Auto 0.4 X10*3/uL (0.1-1.2); Monocytes Percent Auto 7.2 % (2-11); Neutrophils Absolute Auto 3.7 x10*3/uL (2.0-8.3); Neutrophils Percent Auto 67.5 % (45-73); Platelet Count 167 X10*3/uL (160-400); Red Blood Count 4.54 X10*6/uL (4.60-5.80); White Blood Count 5.4 X10*3/uL (4.8-10.8)
[2022-06-02 12:00] LABS: Anion Gap 13 (12-20); Blood Urea Nitrogen 18 mg/dL (9-16); Carbon Dioxide 31 mmol/L (22-29); Chloride 104 mmol/L (96-108); Estimated Glomerular Filt Rate > 60; Potassium 4.4 mmol/L (3.3-5.1); Sodium 144 mmol/L (135-145)
== END 2022-06-02 08:32 | disposition home or self-care (01) ==
LOC: HO.HMGCLDS 08:31
PROVIDERS: Absent Provider Internal Medicine Cardiovascular Disease; PCP Family Medicine; Visit Provider Family Medicine
DX: I10 Essential (primary) hypertension (principal); R06.02 Shortness of breath
CPT/HCPCS: 36415; 80051; 82565; 84520; 85025

== ENCOUNTER 2022-08-26 08:54 | Outpatient (REF) | payer MEDICARE, SELFPAY ==
[2022-08-26 11:19] LABS: MANUAL DIFF FLAG NO
[2022-08-26 11:42] LABS: Anion Gap 13 (12-20); Blood Urea Nitrogen 19 mg/dL (9-16); Carbon Dioxide 33 mmol/L (22-29); Chloride 103 mmol/L (96-108); Estimated Glomerular Filt Rate > 60; Glucose Fasting 111 mg/dL (60-99); Potassium 4.4 mmol/L (3.3-5.1); Sodium 145 mmol/L (135-145)
[2022-08-26 11:46] LABS: Basophils Percent Auto 0.6 % (0-2); Eosinophils Absolute Auto 0.3 X10*3/uL (0.0-0.4); Eosinophils Percent Auto 5.9 % (0-4); Hematocrit 45.8 % (42.0-52.0); Hemoglobin 14.2 g/dl (14.0-18.0); Imm Gran Abs Auto 0.02 X10*3/uL (0.00-0.03); Imm Gran Pct Auto 0.4 % (0.0-0.4); Lymphocytes Absolute Auto 1.1 X10*3/uL (1.2-4.9); Mean Corpuscular Hemoglobin 29.8 pg (27.0-33.0); Mean Platelet Volume 10.6 fL (9.4-12.4); Monocytes Absolute Auto 0.4 X10*3/uL (0.1-1.2); Neutrophils Absolute Auto 3.4 x10*3/uL (2.0-8.3); Neutrophils Percent Auto 65.1 % (45-73); Platelet Count 156 X10*3/uL (160-400); Red Blood Count 4.77 X10*6/uL (4.60-5.80); Red Cell Distribution Width 14.3 % (11.0-16.0); White Blood Count 5.3 X10*3/uL (4.8-10.8)
[2022-08-26 12:37] LABS: Estimated Average Glucose 123 mg/dL; Hemoglobin A1c % 5.9 %
== END 2022-08-26 08:55 | disposition home or self-care (01) ==
LOC: HO.HMGCLDS 08:54
PROVIDERS: PCP Family Medicine; Visit Provider Family Medicine
DX: I10 Essential (primary) hypertension (principal); R06.02 Shortness of breath; E11.9 Type 2 diabetes mellitus without complications
CPT/HCPCS: 36415; 80051; 82565; 82947; 83036; 84520; 85025

== ENCOUNTER 2022-09-21 09:37 | Outpatient (REF) | payer MEDICARE, SELFPAY ==
[2022-09-21 11:52] LABS: MANUAL DIFF FLAG NO
[2022-09-21 12:14] LABS: Prothrombin Time 11.9 SEC (10.0-13.1)
[2022-09-21 12:25] LABS: Anion Gap 8 (12-20); Blood Urea Nitrogen 16 mg/dL (9-16); Calcium 8.7 mg/dL (8.4-10.2); Carbon Dioxide 35 mmol/L (22-29); Chloride 104 mmol/L (96-108); Estimated Glomerular Filt Rate > 60; Glucose Random 92 mg/dL (60-115); Potassium 4.3 mmol/L (3.3-5.1); Sodium 143 mmol/L (135-145)
[2022-09-21 12:51] LABS: Basophils Percent Auto 0.6 % (0-2); Eosinophils Absolute Auto 0.3 X10*3/uL (0.0-0.4); Eosinophils Percent Auto 6.1 % (0-4); Hematocrit 41.7 % (42.0-52.0); Hemoglobin 12.9 g/dl (14.0-18.0); Imm Gran Abs Auto 0.03 X10*3/uL (0.00-0.03); Imm Gran Pct Auto 0.6 % (0.0-0.4); Lymphocytes Absolute Auto 0.9 X10*3/uL (1.2-4.9); Mean Corpuscular HGB Conc 30.9 g/dl (31.0-36.0); Mean Corpuscular Hemoglobin 29.5 pg (27.0-33.0); Mean Corpuscular Volume 95.4 fL (80.0-98.0); Monocytes Absolute Auto 0.5 X10*3/uL (0.1-1.2); Monocytes Percent Auto 10.4 % (2-11); Neutrophils Absolute Auto 3.4 x10*3/uL (2.0-8.3); Neutrophils Percent Auto 64.3 % (45-73); Platelet Count 129 X10*3/uL (160-400); Red Blood Count 4.37 X10*6/uL (4.60-5.80); Red Cell Distribution Width 13.8 % (11.0-16.0); White Blood Count 5.2 X10*3/uL (4.8-10.8)
== END 2022-09-21 09:38 | disposition home or self-care (01) ==
LOC: HO.HMGCLDS 09:37
PROVIDERS: PCP Family Medicine; Visit Provider Nurse Practitioner Acute Care
DX: I25.10 Atherosclerotic heart disease of native coronary artery without angina pectoris (principal); R06.02 Shortness of breath
CPT/HCPCS: 36415; 80048; 85025; 85610

== ENCOUNTER 2022-11-05 14:53 | Outpatient (REF) | payer MEDICARE, SELFPAY ==
--- NOTE | 2022-11-05 | PFT_ITS ---
INDICATION: Shortness of breath. SPIROMETRY: FEV1 to FVC of 76% with an FEV1 of 1.66 L, which is 47% predicted and FVC of 2.17 L, which is 45% predicted. There is response to bronchodilators. Maximum voluntary ventilation 50% predicted. LUNG VOLUMES: Total lung capacity 61% predicted with an expiratory residual volume of 5% predicted. DIFFUSION CAPACITY: DLCO 61% predicted. Comparisons not available. INTERPRETATION: There is an obstructive ventilatory defect consistent with severe COPD. Significant small airway disease and a moderately decrease in maximum voluntary ventilation secondary to likely deconditioning. In addition to this, the patient also has restrictive ventilatory defect, which is moderate in severity, likely maybe a component of underlying parenchymal condition, also related to an elevated BMI. His expiratory residual volume is significantly decreased. Patient also has a moderate diffusion impairment. Clinical correlation warranted. Vicente Munoz MD MR/MODL / [id number]
== END 2022-11-05 14:54 | disposition home or self-care (01) ==
LOC: HO.RESP 14:53
PROVIDERS: PCP Family Medicine; Visit Provider Family Medicine
DX: R06.02 Shortness of breath (principal)
CPT/HCPCS: 94060; 94727; 94729

== ENCOUNTER 2022-11-26 08:45 | Outpatient (REF) | payer MEDICARE, SELFPAY ==
[2022-11-26 16:32] LABS: Urine Cytology See Pathology rpt
== END 2022-11-26 08:46 | disposition home or self-care (01) ==
LOC: HO.LAB 08:45
PROVIDERS: PCP Family Medicine; Visit Provider Urology
DX: C67.9 Malignant neoplasm of bladder, unspecified (principal); C66.9 Malignant neoplasm of unspecified ureter; C68.0 Malignant neoplasm of urethra
CPT/HCPCS: 52000; 88112; 99212

== ENCOUNTER 2023-01-10 07:41 | Day surgery (SDC) | payer MEDICARE, SELFPAY ==
[2023-01-04 12:49] VITALS: BMI 40.0
--- NOTE | 2023-01-05 13:36 | P.CONAN_ITS ---
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) Lichen sclerosus et atrophicus (Acute) Urethral cancer (Acute) Past Medical History Medical History (Updated 01/10/23 @ 08:07 by Maritza Gonzales RN) Arthritis CAD (coronary artery disease) Elevated cholesterol Emphysema lung GERD (gastroesophageal reflux disease) History of renal cell cancer Hx of bladder cancer Hypertension On beta maria antonia at home Family History Family history of problems with anesthesia: No Surgical History Surgical History (Updated 01/10/23 @ 08:08 by Maritza Gonzales RN) History of bladder surgery History of nephrectomy, right History of total left knee replacement (TKR) History of total right knee replacement Hx of cystoscopy Hx of cystoscopy Hx of heart artery stent History of Problems with Anesthesia: No Social History Social History Are you a primary manager critical care to a significant other at home: No Do you presently have visiting nurse or other home services: No Patient Tobacco Use Status: Never used Tobacco Use of substances other than those prescribed or required for medical reasons: No Have you been hit, kicked, punched, or otherwise hurt by someone within the past year? If so, by whom?: No Are you DNR?: No Advance Directives: No Advance Directives Information Provided: Yes (brochure mailed) Advance Directives on File: No Recently lost weight without trying: No Eating poorly because of decreased appetite: No Nutrition Risks: No Nutritional Risk Meds Allergies Allergy/AdvReac Type Severity Reaction Status Date / Time No Known Allergies Allergy Verified 01/10/23 08:12 [No Known Allergies*] Home Medications Medication Instructions Recorded Confirmed Last Taken Type omeprazole 20 mg capsule,delayed 20 mg PO BEDTIME 08/07/20 01/10/23 12/14/21 History release amlodipine 10 mg tablet 10 mg PO BEDTIME 12/04/20 04/03/23 03/07/22 History aspirin 81 mg tablet,delayed 81 mg PO DAILY 12/16/20 01/04/23 01/03/23 History release (Lindsay Low Dose Aspirin) loratadine 10 mg tablet 10 mg PO DAILY 12/16/20 01/04/23 Unknown History gabapentin 600 mg tablet 600 mg PO BEDTIME 01/13/21 01/04/23 Unknown History blood sugar diagnostic #10 ea 04/17/21 01/01/22 Unknown History carvedilol 25 mg tablet 50 mg PO BID 04/17/21 01/04/23 01/10/23 07:00 History gabapentin 300 mg capsule 300 mg PO DAILY 04/17/21 01/04/23 Unknown History hydralazine 50 mg tablet 50 mg PO TID 04/17/21 01/04/23 01/10/23 07:00 History budesonide-formoterol HFA 80 2 puff inhalation BID 11/26/22 01/04/23 01/10/23 07:00 History mcg-4.5 mcg/actuation aerosol inhaler (Symbicort) isosorbide mononitrate 60 mg 60 mg PO QAM 11/26/22 01/04/23 01/10/23 07:00 Hist ory tablet,extended release 24 hr losartan 100 mg tablet 100 mg PO DAILY 11/26/22 01/04/23 Unknown History Exam Exam Date and Time: January 05, 2023 1336 Height,Weight and Vital Signs: Height 6 ft Weight 133.81 kg Pertinent Lab Results Pertinent Lab Results: Laboratory Tests 09/21/22 09/21/22 09:45 09:45 WBC 5.2 Hgb 12.9 L Hct 41.7 L Plt Count 129 L Sodium 143 Potassium 4.3 Chloride 104 Carbon Dioxide 35 H BUN 16 Creatinine 0.89 Narrative Narrative: EKG 12/2022 NSR @61 Low voltage QRS ECHO 2021 LVEF 60-65% Nml regional wall motion Mod conc LVH Enlarged RA with nml LA Dilation of asc aorta @ 4.1cm Cardiac cath Stable CAD Cardiac PET no evidence of ischemia or infarct with preserved LV systolic function LVEF 68% Cardiac PET Assessment and Plan Assessment Anesthesia Assessment: Chart Reviewed Final Anesthetic Review Family History of Problems with Anesthesia: No History of Problems with Anesthesia: No Documented by User: Jose Enrique Rangel MD 01/10/23 08:16 [facility] Past Medical History Medical History (Updated 01/10/23 @ 08:07 by Maritza Gonzales RN) Arthritis CAD (coronary artery disease) Elevated cholesterol Emphysema lung GERD (gastroesophageal reflux disease) History of renal cell cancer Hx of bladder cancer Hypertension On beta maria antonia at home Surgical History Surgical History (Updated 01/10/23 @ 08:08 by Maritza Gonzales RN) History of bladder surgery History of nephrectomy, right History of total left knee replacement (TKR) History of total right knee replacement Hx of cystoscopy Hx of cystoscopy Hx of heart artery stent Social History Social History Are you a primary manager critical care to a significant other at home: No Do you presently have visiting nurse or other home services: No Patient Tobacco Use Status: Never used Tobacco Use of substances other than those prescribed or required for medical reasons: No Have you been hit, kicked, punched, or otherwise hurt by someone within the past year? If so, by whom?: No Are you DNR?: No Advance Directives: No Advance Directives Information Provided: Yes (brochure mailed) Advance Directives on File: No Recently lost weight without trying: No Eating poorly because of decreased appetite: No Nutrition Risks: No Nutritional Risk Meds Allergies Allergy/AdvReac Type Severity Reaction Status Date / Time No Known Allergies Allergy Verified 01/10/23 08:12 [No Known Allergies*] Home Medications Medication Instructions Recorded Confirmed Last Taken Type omeprazole 20 mg capsule,delayed 20 mg PO BEDTIME 08/07/20 01/10/23 12/14/21 History release amlodipine 10 mg tablet 10 mg PO BEDTIME 09/12/20 01/10/23 12/14/21 History aspirin 81 mg tablet,delayed 81 mg PO DAILY 12/16/20 01/04/23 01/03/23 History release (Lindsay Low Dose Aspirin) loratadine 10 mg tablet 10 mg PO DAILY 12/16/20 01/04/23 Unknown History gabapentin 600 mg tablet 600 mg PO BEDTIME 01/13/21 01/04/23 Unknown History blood sugar diagnostic #10 ea 04/17/21 01/01/22 Unknown History carvedilol 25 mg tablet 50 mg PO BID 04/17/21 01/04/23 01/10/23 07:00 History gabapentin 300 mg capsule 300 mg PO DAILY 04/17/21 01/04/23 Unknown History hydralazine 50 mg tablet 50 mg PO TID 04/17/21 01/04/23 01/10/23 07:00 History budesonide-formoterol HFA 80 2 puff inhalation BID 11/26/22 01/04/23 01/10/23 07:00 History mcg-4.5 mcg/actuation aerosol inhaler (Symbicort) isosorbide mononitrate 60 mg 60 mg PO QAM 11/26/22 01/04/23 01/10/23 07:00 History tablet,extended release 24 hr losartan 100 mg tablet 100 mg PO DAILY 11/26/22 01/04/23 Unknown History Exam Airway Mallampati Class: II TM Dist: >3cm Neck ROM: Limited Heart: rrr Lungs: cta Assessment and Plan Final Anesthetic Review NPO: Yes ASA Class: III Final Preanesthetic Review: No Changes in Pt Med Stat, Meds/Allgs Chart Reviewed, Consent Obtained/Reviewed and Anes Risks/Benef Reviewed Patient Risk: Intermediate Procedure Risk: Intermediate Anesthetic Plan Anesthetic Plan: GA and Agree w/ Assess. and Plan Disposition: Standard PACU
--- OUTSIDE RECORDS SUMMARY | 2023-01-10 07:48 | XMS_ITS | Continuity of Care Document ---
Author Name Unknown Organization [facility] Address [address] [place] [address] [address], [address] [place] [address]- Care Team Providers Care Bacteriology Teacher Name Role Phone Topher Cuadra MD Primary Care Physician Encounter [facility] [place] Date(s): 10/20/21 - 10/27/21 [facility] [address] [place] [address] Drive, [address] [place] [address]- Attending Physician: Judd Burrows MD Referring Physician: Sandip Barnes MD Allergies, Adverse Reactions, Alerts No Known Allergies Immunizations Given and Recorded Vaccine Date Status Refusal Reason influenza virus vaccine, inactivated 01/17/15 Give n pneumococcal 23-valent vaccine 01/17/15 Given Medications Amlodipine By Mouth, Daily, 0 Refills, Maintenance, 10/19/21 10:56:00 EST, Partial fill upon patient request if the prescription is for a schedule II opioid drug. Start Date: 10/19/21 Status: Ordered amLODIPine 5 mg oral tablet 5 mg, 1, tablet, By Mouth, Daily, # 30 tablet, Refills 0, Maintenance, 07/12/19 8:06:17 EDT Start Date: 07/12/19 Status: Ordered Aspirin = 81 mg, By Mouth, Daily, 0 Refills, Maintenance, 02/26/15 9:58:39 EDT Start Date: 02/26/15 Status: Ordered atorvastatin 40 mg oral tablet 1 tablet = 40 mg, By Mouth, Daily, # 90 tablet, 0 Refills, Maintenance, 07/20/19 10:50:16 EDT, Tablet Start Date: 07/20/19 Status: Ordered Carvedilol By Mouth, Refills 0, Maintenance, 10/19/21 10:56:00 EST, Partial fill upon patient request if the prescription is for a schedule II opioid drug. Start Date: 10/19/21 Status: Ordered celecoxib 200 mg oral capsule 1 capsule = 200 mg, By Mouth, Daily, 0 Refills, Maintenance, 10/19/21 10:56:00 EST, Partial fill upon patient request if the prescription is for a schedule II opioid drug. Start Date: 10/19/21 Status: Ordered Ciprofloxacin 500 mg, By Mouth, 2 times a day, Maintenance, 07/12/19 8:15:18 EDT Start Date: 07/12/19 Status: Ordered Claritin Tablet 10 mg, By Mouth, Daily, Maintenance, 02/26/15 9:58:55 Start Date: 02/26/15 Status: Ordered clopidogrel 75 mg oral tablet 75 mg, By Mouth, Daily, # 90 tablet, Refills 2, Tot. Refills 2, Maintenance, 07/20/19 10:48:02 EDT,Route to Pharmacy Electronically, [id number], [id number] Start Date: 07/20/19 Status: Ordered Colace sodium 100 mg oral capsule 1 capsule = 100 mg, By Mouth, 2 times a day, PRN for constipation, # 60 tablet, 6 Refills, Maintenance, 02/27/15 15:47:07, Capsule, 1 capsule By Mouth 2 times a day,PRN:for constipation Start Date: 02/27/15 Status: Ordered Gabapentin By Mouth, 0 Refills, Maintenance, 10/19/21 10:56:00 EST, Partial fill upon patient request if the prescription is for a schedule II opioid drug. Start Date: 10/19/21 Status: Ordered glucosamine 500 mg oral capsule 1 capsule = 500 mg, By Mouth, Daily, # 30 capsule, 0 Refills, Maintenance, 07/12/19 8:06:58 EDT, Capsule Start Date: 07/12/19 Status: Ordered HydrALAZINE = 50 mg, By Mouth, 2 times a day, 0 Refills, Maintenance, 07/12/19 8:07:17 EDT Start Date: 07/12/19 Status: Ordered Hydrocodone By Mouth, 0 Refills, Maintenance, 10/19/21 10:56:00 EST, Partial fill upon patient request if the prescription is for a schedule II opioid drug. Start Date: 10/19/21 Status: Ordered isosorbide mononitrate 30 mg oral tablet, extended release 30 mg, 1, tablet, By Mouth, Daily in AM, # 30 tablet, Refills 0, Maintenance, 07/12/19 8:08:31 EDT Start Date: 07/12/19 Status: Ordered losartan 50 mg oral tablet 50 mg, 1, tablet, By Mouth, Daily, Refills 0, Maintenance, 10/19/21 10:57:00 EST, Partial fill uponpatient request if the prescription is for a schedule II opioid drug. Start Date: 10/19/21 Status: Ordered magnesium glycinate 200 mg oral tablet 1 tablet = 200 mg, By Mouth, 0 Refills, Maintenance, 07/12/19 8:11:40 EDT Start Date: 07/12/19 Status: Ordered Omeprazole = 20 mg, By Mouth, Daily, 0 Refills, Maintenance, 02/26/15 9:54:54 EDT Start Date: 02/26/15 Status: Ordered Oxycodone By Mouth, 0 Refills, Maintenance, 10/19/21 10:57:00 EST, Partial fill upon patient request if the prescription is for a schedule II opioid drug. Start Date: 10/19/21 Status: Ordered Plavix 75 mg oral tablet 75 mg, 1, tablet, By Mouth, Daily, # 90 tablet, Refills 0, Tot. Refills 0, Maintenance, 07/20/19 10:49:31 EDT, Route to Pharmacy Electronically, [id number], [facility] Start Date: 07/20/19 Status: Ordered Sulfamethoxazole 0 Refills, Maintenance, 10/19/21 10:57:00 EST, Partial fill upon patient request if the prescription is for a schedule II opioid drug. Start Date: 10/19/21 Status: Ordered Tramadol = 100 mg, By Mouth, Every 6 hours, PRN Pain , Moderate, 0 Refills, Maintenance, 02/26/15 9:59:07 EDT Start Date: 02/26/15 Status: Ordered Zinc = 140 mg, By Mouth, Daily, 0 Refills, Maintenance, 07/19/19 8:37:03 EDT Start Date: 07/19/19 Status: Ordered Problem List Condition Effective Dates Status Health Status Inform ant Obese class II(Confirmed) Active Vital Signs Most recent to oldest [Reference Range]: 1 Height 182 cm (10/20/21 9:36 AM) Weight 127 kg (10/20/21 9:36 AM) Body Mass Index [18.5-24.99] 38.34 *>HHI* (10/20/21 9:36 AM) Social History Social History Type Response Smoking Status Never smoker; Tobacc o user in household: No; Interested in cessation: No entered on: 02/25/15 Sex
--- OUTSIDE RECORDS SUMMARY | 2023-01-10 07:48 | XMS_ITS | Continuity of Care Document ---
Author Name Unknown Organization [facility] Address [address] [place] [id number]- Care Team Providers Care Technical Support Engineer Name Role Phone Khalif CHOPRA, Topher Ahumada Primary Care Physician Encounter [place] Date(s): 08/18/20 - 10/02/[address] [id number] Attending Physician: Topher Pereira MD Referring Physician: Topher Pereira MD Allergies, Adverse Reactions, Alerts Substance Reaction Severity Status NKA Active Immunizations Given and Recorded Vaccine Date Status Refusal Reason influenza virus vaccine, inactivated 01/17/15 Give n pneumococcal 23-valent vaccine 01/17/15 Given Medications amLODIPine 5 mg oral tablet 5 mg, [...] EDT, Tablet Start Date: 07/20/19 Status: Ordered Ciprofloxacin 500 mg, By Mouth, 2 times a day, Maintenance, 07/12/19 8:15:18 EDT Start Date: 07/12/19 Status: Ordered Claritin Tablet 10 mg, By Mouth, Daily, Maintenance, 02/26/15 9:58:55 Start Date: 02/26/15 Status: Ordered clopidogrel 75 mg oral tablet 75 mg, By Mouth, Daily, # 90 tablet, Refills 2, Tot. Refills 2, Maintenance, 07/20/19 10:48:02 EDT,Route to Pharmacy Electronically, [id number], [id number] Start Date: 07/20/19 Status: Ordered Colace sodium 100 mg oral capsule 1 capsule = 100 mg, By Mouth, 2 times a day, PRN for constipation, # 60 tablet, 6 Refills, Maintenance, 02/27/15 15:47:07, Capsule, 1 capsule By Mouth 2 times a day,PRN:for constipation Start Date: 02/27/15 Status: Ordered glucosamine 500 mg oral capsule 1 capsule = 500 mg, By Mouth, Daily, # 30 capsule, 0 Refills, Maintenance, 07/12/19 8:06:58 EDT, Capsule Start Date: 07/12/19 Status: Ordered HydrALAZINE = 50 mg, By Mouth, 2 times a day, 0 Refills, Maintenance, 07/12/19 8:07:17 EDT Start Date: 07/12/19 Status: Ordered isosorbide mononitrate 30 mg oral tablet, extended release 30 mg, 1, tablet, By Mouth, Daily in AM, # 30 tablet, Refills 0, Maintenance, 07/12/19 8:08:31 EDT Start Date: 07/12/19 Status: Ordered magnesium glycinate 200 mg oral tablet 1 tablet = 200 mg, By Mouth, 0 Refills, Maintenance, 07/12/19 8:11:40 EDT Start Date: 07/12/19 Status: Ordered Omeprazole = 20 mg, By Mouth, Daily, 0 Refills, Maintenance, 02/26/15 9:54:54 EDT Start Date: 02/26/15 Status: Ordered Plavix 75 mg oral tablet 75 mg, 1, tablet, By Mouth, Daily, # 90 tablet, Refills 0, Tot. Refills 0, Maintenance, 07/20/19 10:49:31 EDT, Route to Pharmacy Electronically, [id number], [facility] Start Date: 07/20/19 Status: Ordered Tramadol = 100 mg, By Mouth, Every 6 hours, PRN Pain , Moderate, 0 Refills, Maintenance, 02/26/15 9:59:07 EDT Start Date: 02/26/15 Status: Ordered Zinc = 140 mg, By Mouth, Daily, 0 Refills, Maintenance, 07/19/19 8:37:03 EDT Start Date: 07/19/19 Status: Ordered Social History Social History Type Response Smoking Status Never smoker; Tobacc o user in household: No; Interested in cessation: No entered on: 02/25/15 Sex
--- OUTSIDE RECORDS SUMMARY | 2023-01-10 07:48 | XMS_ITS | Continuity of Care Document ---
Author Name Unknown Organization [facility] ter Address [address] [place] [id number]- Care Team Providers Care Supervisor Reclamation Name Role Phone Topher Cuadra MD Primary Care Physician Encounter [facility] Date(s): 10/18/22 - 10/18/[address] [address] Discharge Disposition: A-D/C Home Attending Physician: Mirella Bray MD Admitting Physician: Mirella Bray MD Referring Physician: Jerry Balbuena Allergies, Adverse Reactions, Alerts No Known Allergies Immunizations Given and Recorded Vaccine Date Status Refusal Reason influenza virus vaccine, inactivated 01/17/15 Give n pneumococcal 23-valent vaccine 01/17/15 Given Medications amLODIPine 5 mg oral tablet 10 mg, 2, tablet, By Mouth, Daily, # 30 tablet, Refills 0, Maintenance, 07/12/19 8:06:17 EDT Start Date: 07/12/19 Status: Ordered Aspirin = 81 mg, By Mouth, Daily, 0 Refills, Maintenance, 02/26/15 9:58:39 EDT Start Date: 02/26/15 Status: Ordered Carvedilol 25 mg, By Mouth, 2 times a day, Refills 0, Maintenance, 10/19/21 10:56:00 EST, Partial fill upon patient request if the prescription is for a schedule II opioid drug. Start Date: 10/19/21 Status: Ordered Claritin Tablet 10 mg, By Mouth, Daily, Maintenance, 02/26/15 9:58:55 Start Date: 02/26/15 Status: Ordered Flomax 0.4 mg oral capsule 0.4 mg, 1, capsule, By Mouth, Daily, # 30 capsule, Refills 0, Maintenance, 05/11/22 9:03:00 EDT, Partial fill upon patient request if the prescription is for a schedule II opioid drug. Start Date: 05/11/22 Status: Ordered gabapentin 300 mg oral capsule 300 mg, 1, capsule, By Mouth, Daily at bedtime, Refills 0, Maintenance, 05/11/22 8:59:00 EDT, Partial fill upon patient request if the prescription is for a schedule II opioid drug. Start Date: 05/11/22 Status: Ordered gabapentin 600 mg oral tablet 1 tablet = 600 mg, By Mouth, Daily at bedtime, 0 Refills, Maintenance, 05/11/22 8:59:00 EDT, Partial fill upon patient request if the prescription is for a schedule II opioid drug. Start Date: 05/11/22 Status: Ordered HydrALAZINE = 50 mg, By Mouth, 2 times a day, 0 Refills, Maintenance, 07/12/19 8:07:17 EDT Start Date: 07/12/19 Status: Ordered isosorbide mononitrate 60 mg oral tablet, extended release 60 mg, 1, tablet, By Mouth, Daily in AM, # 90 tablet, Refills 0, Tot. Refills 0, Maintenance, 10/18/22 10:10:00 EST, Route to Pharmacy Electronically, [facility], Partial fill upon patient request if the prescription is for a schedule II... Start Date: 10/18/22 Status: Ordered losartan 100 mg oral tablet 1 tablet = 100 mg, By Mouth, Daily, # 30 tablet, 0 Refills, Maintenance, 05/11/22 8:57:00 EDT, Tablet, Partial fill upon patient request if the prescription is for a schedule II opioid drug. Start Date: 05/11/22 Status: Ordered Omeprazole = 20 mg, By Mouth, Daily, 0 Refills, Maintenance, 02/26/15 9:54:54 EDT Start Date: 02/26/15 Status: Ordered Tramadol = 50 mg, By Mouth, Every 6 hours, PRN Pain , Moderate, 0 Refills, Maintenance, 02/26/15 9:59:07 EDT Start Date: 02/26/15 Status: Ordered Problem List Condition Confirmation Course Effective Dates Status Health St atus Informant Severe obesity Confirmed Active Vital Signs Most recent to oldest [Reference Range]: 1 2 3 Height 183 cm (10/18/22 7:58 AM) 183 cm (10/18/22 7:56 AM) Weight 145.4 kg (10/18/22 7:58 AM) 145.4 kg (10/18/22 7:56 AM) Oxygen Saturation [94-100 %] 90 % *L* (10/18/22 12:50 PM) 88 % *L* (10/18/22 12:30 PM) 90 % *L* (10/18/22 12:00 PM) Pulse Rate [55-90 bpm] 73 bpm (10/18/22 7:58 AM) Body Mass Index [18.5-24.99 kg/m2] 43.42 kg/m2 *>HHI* (10/18/22 7:58 AM) Blood Pressure [90-138/55-84 mm Hg] 147/80mm Hg *H* (10/18/22 12:50 PM) 131/71mm Hg (10/18/22 12:30 PM) 123/77mm Hg (10/18/22 12:00 PM) Respiratory Rate [16-30 br/min] 21 br/min (10/18/22 12:50 PM) 24 br/min (10/18/22 12:30 PM) 26 br/min (10/18/22 12:00 PM) Temperature [96.8-100.4 DegF] 97.5 DegF (10/18/22 7:58 AM) Mode of Delivery (Oxygen) Room air (10/18/22 12:50 PM) Room air (10/18/22 12:30 PM) Room air (10/18/22 12:00 PM) Blood pressure sites Arm, left (10/18/22 12:50 PM) Arm, left (10/18/22 12:30 PM) Arm, left (10/18/22 12:00 PM) Temperature Route Temporal (10/18/22 7:58 AM) Dry Weight 145.4 kg (10/18/22 7:58 AM) 145.4 kg (10/18/22 7:56 AM) Weight Obtained Via Standing scale (10/18/22 7:58 AM) Standing scale (10/18/22 7:56 AM) Dry Weight Obtained Via Standing scale (10/18/22 7:58 AM) Standing scale (10/18/22 7:56 AM) Social History Social History Type Response Smoking Status Never smoker; Tobacc o user in household: No; Interested in cessation: No entered on: 02/25/15 Sex Cardiac catheterization study * Event Display: Cardiac Lathe Operator Report Authored Date: Cardiac Diagnostic + PCI Report Demographics Patient Name GONZALES BRAN Gender Male [employer] Room Number [id number] Height 71.65 inches Date of 1950 Weight 279.99 pounds Age 72 year(s) BSA 2.45 m2 Accession Number [id number] BMI 38.34 kg/m2 Referring Physician Victor M Amaya MD Date of Study 10/18/2022 Topher Palomo [facility] Jerry Edwards Performing Physician Mirella Bray MD Fellow Delbert Lugo Interventional Mirella Bray MD Physician Procedure Procedure Type Diagnostic procedure:Coronary Angiography with [facility] PCI procedure:FFR Miscellaneous:ACT [facility] Diagnostic Catheterization Status:Elective [facility] Interventional Catheterization Status:Elective Indications Indications: Shortness of breath. Clinical History Admission Medications + +------+-------+ + + +---------+ !Medication !Dosage!Times !Last !Last !Administered !Comments ! ! ! !Per Day!Delivery !Delivery ! ! ! ! ! ! !Date !Time ! ! ! + +------+-------+ + + +---------+ !Aspirin (any)!81 mg !x 1 !10/18/2022 !00:00 !Yes ! ! + +------+-------+ + + +---------+ !Beta Seema ! ! ! ! ! ! ! !(any) ! ! ! ! ! ! ! + +------+-------+ + + +---------+ !Nitrate (Any)! ! ! ! ! ! ! + +------+-------+ + + +---------+ Clinical Evaluation Leading to Procedure - The patient's CAD presentation was assessed as: Stable angina. - The patient's anginal syndrome during the past two weeks was assessed as: Class III according to the [place] Cardiovascular Society Classification System (CCS). Anti-anginal medications were prescribed during the past two weeks. The medications are: Beta Blockers, Ca channel Blockers and Long Acting Nitrates. ACC Risk Factors The patient risk factors include:prior PCI;obesity, treated hypercholesterolemia, treated hypertension, last creatinine: 0.8 mg/dl, creatinine clearance: 154.34 ml/min, dyslipidemia and former tobacco use. Additional Clinical History:72-year-old male with history of coronary artery disease with previous stent in the mid RCA x2, hypertension, hyperlipidemia, obesity who was having dyspnea on exertion. He is on Coreg, amlodipine and isosorbide and despite that, continued to have symptoms. This prior symptom before the stent placement in the RCA was similar to current symptoms. He scheduled for left heart catheterization with coronary angiogram. No contrast allergy and normal renal function. Procedure Data Procedure Date Date: 10/18/2022Start: 08:28End: 10:04 The procedure was explained in detail to the patient. Risks, complications and alternative treatments were reviewed. Written consent was obtained. Entry Locations - Retrograde Percutaneous access was performed through the Right Radial artery. A 6 Fr sheath was inserted. Hemostasis was successfully obtained using TR Band. Closure Comments: 14cc. Procedure Medications - Versed (Midazolam) I.V. 1 mg. - Fentanyl I.V. 50 mcg. - Versed (Midazolam) I.V. 1 mg. - Fentanyl I.V. 50 mcg. - Oxygen NC 2 l/min. - Nitroglycerin I.A. 200 mcg. - Heparin I.V. 5000 units. - Oxygen NC 4 l/min. - Nitroglycerin I.A. 200 mcg. - Heparin I.V. 7000 units. - Nitroglycerin I.C. 200 mcg. - Nitroglycerin I.C. 200 mcg. - Versed (Midazolam) I.V. 0.5 mg. - Fentanyl I.V. 25 mcg. - Nitroglycerin I.A. 200 mcg. - Nitroglycerin I.A. 200 mcg. - Adenosine 90mg/45ml 0.9NS I.V. drip 140 mcg/kg/min. Sedation: My intra-service moderate sedation time was: from 8:41 to 10:05. Refer to procedural log for detailed chronological information. Contrast Material - Omnipaque 60 ml Diagnostic Catheters - A5F JR4 INFINITI CATHETERwas used for: Right coronary angiography. - A5F JR4 INFINITI CATHETERwas used for: Left heart catheterization. - A5F JL 3.5 INFINITI CATHETERwas used for: Left heart catheterization.Unable to cannulate the vessel. - A5F JL 4.0 DxTERITY DIAGNOSTIC CATHETERwas used for: Left heart catheterization. - A6F XB3.5 VISTA BRITETIP GUIDING CATHETERwas used for: FFR .Unable to cannulate the vessel. - A6F AL 1.0 LAUNCHER GUIDING CATHETERwas used for: FFR .Unable to cannulate the vessel. - A6F XB 4 VISTA BRITETIP GUIDING CATHETERwas used for: FFR . - A6F AL 1.0 LAUNCHER GUIDING CATHETERwas used for: Right coronary angiography. Fluoroscopy Time: Diagnostic: 7:48 minutes. PCI: 13:54 minutes. Total: 21:42 minutes. Fluoroscopy Dose: Diagnostic: 1583 mGy. PCI: 2246 mGy. Total: 3829 mGy. Dose Area Product:Diagnostic: 71380 mGy/cm2. PCI: 996870 mGy/cm2. Total: 694852 mGy/cm2. Dose Area Product:Diagnostic: 9391 ??Gy/m2. PCI: 93172.7 ??Gy/m2. Total: 34888.7 ??Gy/m2. Procedure Narrative Patient is seen and examined in the Lathe Operator. The description of the procedure and the risk and benefit including bleeding, radial spasm, contrast-induced nephropathy, CT, stroke, , angioplasty related dissection or perforation were mentioned to the patient. The patient understood and agreed to proceed with the procedure. Right radial artery access was obtained and a 6 Chinese sheath was placed. The diagnostic angiogram was performed using JL 4 and JR4 diagnostic catheter. LVEDP was measured on with pullback gradient across aortic valve. It was difficult to engage the RCA with JR4 diagnostic catheter so we used an AL-1 guide for angiographic images. Additional heparin was given and ACT was achieved more than 250-second. After normalization, an IFR wire was advanced into the distal LAD and IFR was assessed which came out 0.91 indicating hemodynamically nonsignificant lesion. Then we performed FFR which came out to 0.9 after 2 minutes of adenosine infusion which once again indicated hemodynamically nonsignificant lesion. Considering this, we decided to end the procedure since the patient has significant disease involving mid LCx, mid ramus intermediate artery and ISR of the previously placed stent in the RCA. We wanted to perform an outpatient stress test to quantify the ischemic burden and depending on the finding, we would like to plan for staged PCI as outpatient. At the end of the procedure, the sheath was removed and a TR band was placed. Angiographic Findings Cardiac Arteries and Lesion Findings LMCA: Normal. LAD: Moderate diffuse disease. Lesion in Mid LAD: Mid subsection.50% stenosis . FFR +----+ +-------+ !FFR !Stage/Medication !Dosage ! +----+ +-------+ !0.9 !Adenosine (I.V) ! ! +----+ +-------+ iFR +----+ + !iFR !Stage ! +----+ + !0.91!Diagnostic! +----+ + LCx: Lesion in Mid CX: Mid subsection.70% stenosis .The lesion was heavily calcified. RCA: There is a previous stent on Mid RCA. Lesion in Prox RCA: Distal subsection.50% stenosis . Lesion in Mid RCA: Proximal subsection.80% stenosis . Comments:ISR of the previously placed stent. Ramus: Lesion in Ramus: Mid subsection.85% stenosis . Cardiac Collaterals - collateral flow from the Dist CX to the 1st RPL. Hemodynamics Condition: Rest O2 Consumption: Estimated: 282.89Heart Rate: 69 bpm Pressures (mmHg) +-----+ + !Site !Pressure ! +-----+ + !AO !140/87 (107)! +-----+ + !LV !115/13 ,20 ! +-----+ + !LV !121/10 ,18 ! +-----+ + !AO !123/73 (97) ! +-----+ + !LV !122/11 ,20 ! +-----+ + Valve Gradients and Areas +------+----+----+----+-----+----+------+ !Valve !Peak!Mean!Area!Index!Flow!Source! +------+----+----+----+-----+----+------+ !Aortic!0 !0 ! ! ! ! ! +------+----+----+----+-----+----+------+ !Aortic!0 !0 ! ! ! ! ! +------+----+----+----+-----+----+------+ Shunts Oxygen Values O2 Consumption 282.89 Interventional Procedure Cardiac lesions LAD: Lesion in Mid LAD: Mid subsection.50% stenosis . Devices used - 185cm STR OMNIWIRE PRESSURE GUIDEWIRE. Number of passes: 1. Conclusions Diagnostic Summary 72-year-old male with history of coronary artery disease with previous stent in the mid RCA with in-stent restenosis with subsequent stenting in 2019, hypertension, hyperlipidemia who was having dyspnea on exertion. LVEDP 18 mmHg. No significant pullback gradient across aortic valve. Diagnostic angiogram revealed normal LMCA, mild diffuse disease of the LAD with 50% stenosis in the mid subsection of mid LAD, 70% stenosis in the mid subsection of mid LCx, 85% stenosis in the mid subsection of ramus intermediate artery, 50% stenosis in the distal subsegment of proximal RCA and 80% stenosis in the mid segment of mid RCA which is ISR of the proximal end of the previous stent. Considering the above finding, we decided to perform IFR of the mid LAD lesion. Diagnostic Recommendations iFR of the mid LAD lesion. Interventional Summary Mid LAD: iFR of the mid LAD was 0.91 indicating hemodynamically nonsignificant lesion. We also performed FFR of the mid LAD lesion which came out 0.90 indicating hemodynamically nonsignificant lesion. Considering this, we decided to end the procedure today as patient has significant lesion in the LCx, ramus intermediate artery as well as ISR of the previously placed stent in the mid RCA. We were not sure which vessel is causing him symptoms and we would like to uptitrate medical management further and perform a stress test as outpatient to determine and the target for intervention. Interventional Recommendations Continue amlodipine and Coreg and increase isosorbide mononitrate to 60 mg daily. If he continues to have symptoms despite optimal medical therapy, will consider an outpatient stress test to identify the ischemic burden and staged PCI as outpatient. Discussed with Dr. Amaya about our plan. Signatures * Event Display: Cardiac Lathe Operator Report Authored Date: * Event Display: Cardiac Lathe Operator Report Authored Date: History and physical note * Event Display: History and Physical Hospital Authored Date: Note * Maria Alejandra Santana RN: PERFORM Event Display: Discharge/Transfer Note Hospital Authored Date: Nursing Discharge Note Entered On: 10/18/2022 13:41 EST Performed On: 10/18/2022 13:40 EST by Maria Alejandra Santana RN Nursing Discharge Note 2 Discharge Time : 10/18/2022 13:28 EST Discharge Level of Care at Discharge : Home/Correction/Foster Care Patient Left Unit Via : Wheelchair Patient Accompanied Off Unit with : Responsible adult DC Instructions Provided & Signed by Pt : Yes Patient Understands D/C Instructions : Yes Verbalized Understanding of D/C Plan By : Patient Patient Instructions Discharge Signed : Yes Discharge Comments : IV site d/c'ed catheter intact. d/c education completed and pt verbalized fullunderstanding. pt stable with all belonings at time of d/c home Did Pt have Specialty Bed or Wound Vac : Maria G Santana RN, Maria Alejandra - 10/18/2022 13:40 EST * Fallon Sanchez: MODIFY, PERFORM, MODIFY Event Display: Patient Education/Instruction Authored Date: [id number] Inpatient Adult Discharge Instructions [address] [address] Name: SHANT ROLON : 1950 Visit: 10/18/2022 07:13:00 Current Date: 10/18/2022 10:18 Account: [id number] Inpatient Adult Discharge Instructions We would like to thank you for allowing us to assist you with your healthcare needs. The following includes patient education materials and information regarding your injury/illness. Our entire staffstrives to provide an excellent experience for our patients and their families. PLEASE ENSURE YOU FOLLOW-UP PER THE INSTRUCTIONS BELOW! ?? YOUR OPINION IS IMPORTANT TO US! Please complete the survey you may receive by mail or email. Your feedback will be used to make improvements to the healthcare experiences of our patients and their families. Surveys are administered by [employer] ?? If further treatment with your primary care physician or another doctor is recommended, it is important for you to keep the appointment. Call your primary care physician or return to the Emergency Department immediately if your condition worsens, fails to improve, or new symptoms develop. If you need to find a doctor, you can call [facility] [employer] for a referral at [phone] or toll free at [phone] or log in to [email or web address].. ?? You can view and manage your care through the patient portal or by using a health care [place] of your choosing. [place] is a website that allows you to securely view your medical information including your hospital discharge summary, office visit summaries, medications and follow-up visits. You can also request appointments, renew medications, and request access to your medical information using a health care [place] of your choosing, or just ask a question. You can enroll at [email or web address] or register during your next office visit. You have been discharged from [facility], Patient Care Unit: CARE. If you have any questions regarding these instructions after you leave, please call us and we will be happy to assist you. [facility] Your Care Team Attending Physician Katarina CHOPRA, Mirella Discharging Providers Parish CHOPRA, Delbert Sharpe Reason for Admission CAD SOB LHC/?PCI HV2 [id number] Tests Performed Below is a partial list of the tests performed during your hospitalization. You may have had other tests and procedures not included in this list. Please discuss all test results with your provider. Primary Care Provider Khalif CHOPRA, Topher Ahumada Advance Directive Health Care Proxy on File Yes - Health Care Proxy No qualifying data available. Discharge Vitals Temperature: 97.5 DegF Height: 183 cm Pulse Rate: 73 bpm Weight: 145.4 kg Respiratory Rate: 26 br/min Body Mass Index:??43.42 kg/m2??Critical Systolic Blood Pressure:??146 mm Hg??High Body surface area: 2.72 Diastolic Blood Pressure: 84 mm Hg ?? Oxygen Saturation:??90 %??Low ?? Studies Pending All tests and labs ordered during this hospital stay have been completed unless listed below. Please discuss all pending results with your provider listed above in these instructions. ?? Type and Screen What to do next Instructions From Your Doctor Discharge Orders Instructions from your Care Team if you have questions or concerns after discharge, you can call the CARE unit at [phone] You Need to Schedule the Following Appointments Follow Up with??You can call the cardiac surgery office to schedule outpatient consultation at [phone] When?? Follow Up with??Topher Cuadra When??In 0 days Where: [address], [address] [place] [address]- Business (1) Discharge Medications SHANT ROLON :1950 Visit Date:10/18/2022 Medications: Please continue your medications until treatment is completed or stopped by your provider. Medications not listed below should be discontinued. Discuss any questions related to medications with your provider. What How Much When Instructions Next Dose Changed Isosorbide Mononitrate (isosorbide mononitrate 60mg oral tablet, extended release) 1 tab(s) Oral Daily in the morning Pickup at [facility] 3 start tomorrow morning Unchanged Amlodipine (amLODIPine 5 mg oral tablet) 2 tab(s) Oral Daily continue taking as prescribed Unchanged Aspirin 81 Milligram Oral Daily continue taking as prescribed Unchanged Carvedilol 25 Milligram Oral Twice a day continue taking as prescribed Unchanged Gabapentin (gabapentin 300 mg oral capsule) 1 capsule Oral Daily at Bedtime continue taking as prescribed Unchanged Gabapentin (gabapentin 600 mg oral tablet) 1 tab(s) Oral Daily at Bedtime continue taking as prescribed Unchanged HydrALAZINE 50 Milligram Oral Twice a day continue taking as prescribed Unchanged Loratadine (Claritin Tablet) 10 Milligram Oral Daily continue taking as prescribed Unchanged Losartan (losartan 100 mg oral tablet) 1 tab(s) Oral Daily continue taking as prescribed Unchanged Omeprazole 20 Milligram Oral Daily continue taking as prescribed Unchanged Tamsulosin (Flomax 0.4 mg oral capsule) 1 capsule Oral Daily continue taking as prescribed Unchanged Tramadol 50 Milligram Oral Every 6 hours as needed for Pain , Moderate continue taking as prescribed Pharmacy Information [facility]: [address] [place], [place] [id number] [phone] Test Results Below is a partial list of the most recent Laboratory test results done prior to this discharge. You may have had other tests and procedures not included in this list. Please discuss all test resultswith your provider. Allergies (NKA means No Known Allergies) NKA Problems Active Problems??(2) Cellulitis of foot, left?? Severe obesity?? Education Materials Below is the list of Educational Leaflet Providered with your Discharge Instructions. Surgery Radial Cath Approach Discharge Instructions?? Recovery After Procedural Sedation (Adult)?? Discharge Instructions for Cardiac Catheterization?? Bleeding or Hematoma After Cardiac Catheterization?? Valuables and Belongings I fully understand and agree that [facility] accepts no responsibility for all my personal property including clothing, toilet articles, radios, jewelry, dentures, hearing aids, rings, money, or any other property that is in my possession or is brought to me after admission. I understand certain valuables may be placed in a hospital safe for a short period of time. I understand that the hospital is not liable for loss or damage due to accident, fire, or other natural occurrence while said property is in the safe. I accept full responsibility for any personal property that I keep with me, and will not hold the hospital responsible in case of loss or disappearance. I acknowledge that i have been encouraged to send valuables and belongings home. ?? Review of Valuable and Belonging List: With patient Date for Pt to Sign Valuables/Belongings: 10/18/22 08:06:00 ?? Other Discharge Information ? Pulmonary Rehab Status?? Pulmonary Rehab Discharge Status?? Respiratory Rate: 26 br/min ? Common Emergency Awareness Tips IS IT A STROKE? Act FAST and Check for these signs: FACE Does the face look uneven? ARM Does one arm drift down? SPEECH Does their speech sound strange? TIME Call at any sign of stroke ?? Heart Attack Signs Chest discomfort: Most heart attacks involve discomfort in the center of the chest and lasts more than a few minutes, or goes away and comes back. It can feel like uncomfortable pressure, squeezing, fullness or pain. Discomfort in upper body: Symptoms can include pain or discomfort in one or both arms, back, neck, jaw or stomach. Shortness of breath: With or without discomfort. Other signs: Breaking out in a cold sweat, nausea, or lightheaded. Remember, MINUTES DO MATTER. If you experience any of these heart attack warning signs, call to get immediate medical attention! ?? Smoking can increase your chances of developing chronic health problems and can cause harmful effects to other family members in your house. If you smoke, you are strongly encouraged to quit. Please call [employer] [employer] [facility] at [phone] or 9-860-530TYMR ([phone]) or log in to [email or web address] for referrals to smoking cessation programs. ?? The National Suicide Prevention Hotline is available 02/05 if you or someone you know needs to find a reason to keep living. By calling 2-774-408-Naviswiss (6878) you'll be connected to a skilled, trained counselor at a crisis center in your area. INPATIENT DISCHARGE INSTRUCTIONS SIGNATURE PAGE SHANT ROLON Location:[facility] Registration Date and Time:10/18/2022 07:13 EST Primary Care Physician: Topher Cuadra MD, I SHANT ROLON, have received the above patient education materials/instructions and have verbalized understanding. If ambulance or transport services are being used I further acknowledge beinggiven a choice of service. ?? If you need to contact me, please call me at this number: . Patient/Stock Feeder Name: Patient/Stock Feeder Signature: Relationship to Patient: Witness Name/Signature: Date: * Fallon Sanchez: PERFORM, SIGN, VERIFY Event Display: Patient Education Handout Authored Date: [id number] * Fallon Sanchez: PERFORM Event Display: Patient Education Leaflets Authored Date: [id number] Surgery Radial Cath Approach Discharge Instructions ?? 278 Radial Cath Approach Discharge Instructions ?? Activity Take it easy the rest of the day. Limit your activity on the affected side.?? Act as if your arm is broken for 24 hours. No lifting with affected arm for 24 hours. No pushing or pulling with the affected arm. Do not reach or lift with the affected arm. Do not place excessive pressure on the wrist. ?? Precautions Due to intravenous sedation: It is recommended that someone stay with you for the first night after your procedure. Do not drive or operate hazardous machinery for 24 hours. Do not make legal decisions for 24 hours. Avoid alcohol for 24 hours. Unless directed otherwise, keep yourself hydrated. ?? Dressing/Incision Care You may remove the dressing 24 hours after your procedure. Replace with band aid for an additional 24 hours. You may shower and cleanse the site with soap &&water then pat dry. Avoid submersion of site in water x 5 days. Cover the with a clean band aid daily until site is healed. If the band aid becomes soiled, replacewith a clean new one. Do not apply any ointments, lotions, gels or powders to the puncture site. ?? When to contact your doctor If any of the following signs of infection occur: Fever greater than 100 degrees F Increased pain Drainage, redness or warmth at puncture site Tingling of the fingers and hand that last longer than 3 days Slight bubble of blood or bleeding from site: apply manual pressure and notify your doctor ?? Emergency situations: Bleeding from the site that will not stop: apply manual pressure and notify your doctor Profuse bleeding streaming from the puncture site: Apply manual pressure and notify your doctor immediately If your hand becomes bluish, cold to the touch, or painful, notify your doctor immediately or go toEmergency Department. For these emergent situations: If unable to contact your physician, call 911. ?? * Fallon Sanchez: PERFORM Event Display: Patient Education Leaflets Authored Date: [id number] Recovery After Procedural Sedation (Adult) ?? [id number] Recovery After Procedural Sedation (Adult) You have been given medicine by vein to make you sleep during your procedure. This may have included both a pain medicine and sleeping medicine. Most of the effects have worn off. But you may still have some drowsiness for the next 6 to 8 hours. Home care Follow these guidelines when you get home: ??? For the next 8 hours, you should be watched by a responsible adult. This person should make sure your condition is not getting worse. ??? Don't drink any alcohol??for the next 24 hours. ??? Don'tdrive, operate dangerous machinery, or make important business or personal decisions??during the next 24 hours. Note: Your healthcare provider may tell you not to take any medicine by mouth for pain or sleep in the next 4 hours. These medicines may react with the medicines you were given in the hospital. This could cause a much stronger response than usual. ?? Follow-up care Follow up with your healthcare provider as advised. Also follow up with your provider if you are not alert and back to your usual level of activity within 12 hours. ?? When to seek medical advice Have someone call your healthcare provider right away if any of these occur: ??? Drowsiness gets worse ??? Weakness or dizziness gets worse ??? Repeated vomiting ??? Severe or ongoing pain from the procedure that's not eased by the pain medicine (if prescribed) ??? Fever ??? New rash ?? Call 911 Have someone call 911 if you have any of these: ??? Shortness of breath ??? Chest pain ??? Loss of consciousness or you can't be awakened ?? Last Reviewed Date: 2021 ?? 2223-2394 [employer]. All rights reserved. This information is not intended as a substitute for professional medical care. Always follow your healthcare professional's instructions. ?? * Fallon Sanchez: PERFORM Event Display: Patient Education Leaflets Authored Date: [id number] Discharge Instructions for Cardiac Catheterization ?? 14907 Discharge Instructions for Cardiac Catheterization Cardiac catheterization??is an invasive??procedure??to look for certain heart problems. These problems may affect the heart's chambers, valves, and blood vessels. A thin, flexible tube (catheter) is put in a blood vessel in your groin or arm. The catheter is moved to the heart. The healthcare provider can look at the blood flow, blood pressure, and oxygen. They can inject contrast fluid??into your blood. This flows to your heart.??The provider can then take X-rays pictures?? of your heart. Coronary angiography is often done as part of a cardiac cath. This looks for blocked areas in the arteries that send blood to the heart. If a blockage is found, your provider may try to open up the artery. They may put a stent in place. Your provider will talk with you about the results of your procedure . Ask any questions you have before you leave. This sheet will help you take care of yourselfat home. Home care ??? Have a responsible adult drive you home after your procedure. ??? Don't drive or makeany important decisions for at least 24 hours after getting any type of sedation or anesthesia.? Drink?? 6 to 8??glasses of water over the next 24 hours. This is to help flush the contrast dye out of your body. Call your healthcare team if your urine has any change in color. ??? Take your tempe rature each day for 3 to 5 days. If you feel cold and clammy or start sweating, take your temperature right away. Call your healthcare team. ??? Do only light and easy activities for??the next?? 2 to3??days. Ask for help with chores and errands while you recover. Have someone drive you to your appointments. ??? Don't lift anything heavy??until your healthcare team says it's safe. ??? Ask your healthcare team when you can expect to return to work. Unless your job involves lifting, you may be able to return to your normal activities within 2 days. ??? Take your medicines as directed. Don't skip doses. ??? Check your incisions every day for signs of infection. These include redness, swelling,and fluid leaking. It's normal to have a small bruise or bump where the catheter was put in. A bruise that's getting larger is not normal. Tell your healthcare team about this. Call your healthcare team if you see blood forming in the incision. Go to the emergency room if you have uncontrolled bleeding from the artery site. This is even more important if you take medicines that make it hard for your blood to clot. These include aspirin, clopidogrel, warfarin, apixaban, and rivaroxaban. ??? Eat a healthy diet. Make sure it's low in fat, salt, and cholesterol. Ask your healthcare team for diet information. ??? Stop smoking. Sign up for a quit-smoking program. Or ask your healthcare team for help. ??? Exercise as your healthcare team tells you to. Your healthcare team??may advise you to start a cardiac rehab program. Cardiac rehab is an exercise program where trained healthcare staff watchyour progress and stress on your heart while you exercise. Ask your team how to enroll. ??? Don't swim or take baths until your healthcare team says it???s OK. You can shower the day after the procedure. Keep the site clean and dry. This keeps the incision from getting wet and infected until the skin and artery can heal. ??? Follow all other after-care instructions from your team.? Follow-up care ??? Make a follow-up appointment as advised. It's common to have a follow-up appointment 2 to 4 weeks after an angioplasty or coronary stent procedure. ??? Make a yearly appointment. This is??to make sure you're still doing well and not having any new symptoms. ??? Don't wait for a follow-up appointment if your medicines aren't working or you're having heart-related symptoms. Call your healthcare provider. ?? When to get medical care Call your healthcare provider right away if you have any of these: ??? Severe or increasing pain, numbness, coldness, or a bluish color in the leg or arm that held the catheter ??? Fever of 100.4?? F??( 38??C) or higher, or as advised by your healthcare provider ??? Signs of infection at the incision site. These include redness, swelling, drainage, or warmth. ??? Bleeding, bruising, or a lot of??swelling where the catheter was inserted ??? Blood in your urine ??? Black or tarry stools ??? Any unusual bleeding ??? Irregular, very slow, or fast heartbeat ??? Dizziness ?? Call 911 Call 911 if you have any of these: ??? Chest pain ??? Shortness of breath ??? Sudden numbness or weakness in arms, legs, or face, or trouble speaking ??? The puncture site swells up very fast ??? Bleeding from the puncture site that doesn't slow down with firm pressure ?? Last Reviewed Date: 2021 ?? [employer]. All rights reserved. This information is not intended as a substitute for professional medical care. Always follow your healthcare professional's instructions. ?? Patient Care team information Care Team Personnel Name: Topher Cuadra MD Position: Reference Physician Member Role: PCP Address: Address: [address] [place] [address], [address] [place] [address]- Care Team Related Persons Name: SANDIE STREET Address: home [address] [place] [address] Name: SHONNA ROLON Address: [address] [place] [address] Name: GEREMIAS RED Address: [address] [place] [address]
--- OUTSIDE RECORDS SUMMARY | 2023-01-10 07:48 | XMS_ITS | Continuity of Care Document ---
Author Name Unknown Organization [facility] Address [address] [place] [address]- Care Team Providers Care Investment Accountant Name Role Phone Topher Cuadra MD Primary Care Physician [phone] Encounter [facility] [place] Date(s): 05/11/22 - 06/10/22 [facility] [address] [place] [address]- Attending Physician: Chetna Louie Admitting Physician: Chetna Louie Referring Physician: Chetna Louie Allergies, Adverse Reactions, Alerts No Known Allergies [...] Tablet Start Date: 07/20/19 Status: Ordered Carvedilol 25 mg, By Mouth, [...] Maintenance, 07/20/19 10:48:02 EDT,Route to Pharmacy Electronically, [id number], [facility] Start Date: 07/20/19 Status: Ordered Colace sodium 100 mg oral capsule 1 capsule = 100 mg, By Mouth, 2 times a day, PRN for constipation, # 60 tablet, 6 Refills, Maintenance, 02/27/15 15:47:07, Capsule, 1 capsule By Mouth 2 times a day,PRN:for constipation Start Date: 02/27/15 Status: Ordered Flomax 0.4 mg oral capsule [...] EDT Start Date: 07/12/19 Status: Ordered losartan 100 mg oral tablet [...] 07/20/19 10:49:31 EDT, Route to Pharmacy Electronically, [id number], [facility] Start Date: 07/20/19 Status: Ordered Tramadol = 50 mg, By Mouth, Every 6 hours, PRN Pain , Moderate, 0 Refills, Maintenance, 02/26/15 9:59:07 EDT Start Date: 02/26/15 Status: Ordered Problem List Condition Effective Dates Status Health Status Inform ant Obese class II(Confirmed) Active Social History Social History Type Response Smoking Status Never smoker; Tobacc o user in household: No; Interested in cessation: No entered on: 02/25/15 Sex Care Team Personnel Name: Topher Cuadra MD Address: [address] [place] [address], [address]
--- OUTSIDE RECORDS SUMMARY | 2023-01-10 07:48 | XMS_ITS | Continuity of Care Document ---
Author Name Unknown Organization [facility] Address [address] [place] [address] [address], [address] [place] [address]- Care Team Providers Care Legal Financial Specialist Name Role Phone Khalif CHOPRA, Topher Ahumada Primary Care Physician Encounter [facility] [place] Date(s): 08/17/21 - 09/16/21 [facility] [address] [place] [address] Drive, [address] [place], [place] [address] Allergies, Adverse Reactions, Alerts Substance Reaction Severity [...] Maintenance, 07/20/19 10:48:02 EDT,Route to Pharmacy Electronically, [id number], [facility] Start Date: 07/20/19 Status: [...] 07/20/19 10:49:31 EDT, Route to Pharmacy Electronically, [id number], [facility] Start Date: 07/20/19 Status: Ordered [...]
--- OUTSIDE RECORDS SUMMARY | 2023-01-10 07:48 | XMS_ITS | Continuity of Care Document ---
Author Name Unknown Organization [facility] Address [address] [place] [address] [address], [address] [place] [address]- Care Team Providers Care Assistant Shift Supervisor Name Role Phone Topher Cuadra MD Primary Care Physician [phone] Encounter [facility] Date(s): 10/20/21 - 11/19/21 [facility] [address] [place] [address] Drive, [address] [place], [place] [address] Attending Physician: Chetna Louie Admitting Physician: Admtr, Chetna Referring Physician: Admtr, Ar8 Allergies, Adverse Reactions, Alerts No Known Allergies [...] Maintenance, 07/20/19 10:48:02 EDT,Route to Pharmacy Electronically, [id number], [facility] Start Date: 07/20/19 Status: [...] 07/20/19 10:49:31 EDT, Route to Pharmacy Electronically, [id number], [facility] Start Date: 07/20/19 Status: Ordered Sulfamethoxazole [...]
[2023-01-10 08:26] VITALS: BP 133/69; PULSE 73; RESP 20; TEMP 36.1; O2SAT 89
[2023-01-10] MEDS: Lactated Ringers 1,000 ML 100 ML IVCONT (08:41)
--- NOTE | 2023-01-10 08:42 | PC.NURSE ---
anesthesia made aware of o2 sats 89-91%. no o2 wanted at present, no orders.
--- NOTE | 2023-01-10 10:44 | MHC.SHP ---
Pre-Procedural Eval Section A Date of Service: 01/10/23 The patient is an INPATIENT: No Changes since office visit: No Cold of Flu in the past 2 weeks, No New Medical Problems, No Changes in Medication and No Patient answered all questions The History & Physical has been completed within 30 days and I have reviewed it.: Yes Section B Chief Complaint: Malignant neoplasm of bladder, unspecified Allergies: Allergies Allergy/AdvReac Type Severity Reaction Status Date / Time No Known Allergies Allergy Verified 01/10/23 08:12 [No Known Allergies*] Review of Systems Sugical H&P ROS: Negative: Constitution, Cardiovascular, Respiratory, Neurological, Psychiatric, Hem-Onc, Allergic/Immunologic, Gastrointestinal, Genitourinary, Musculoskeletal, Integumentary, Endocrine and Eyes/Ears/Nose/Throat Exam Surgical H&P Exam: Normal: HEENT, Normal: Heart, Normal: Lungs, Normal: Extremities, Normal: Abdomen, Normal: Skin and Normal: Neurological Plan Diagnosis/Plan: Unchanged (cystoscopy, urethral lesion biopsy, fulgeration) I have reviewed the history and physical and performed a pertinent physical examination on my patient. No changes have occurred unless specified. Time Spent With Patient Time: Total time managing care of this patient today ____ minutes.
[2023-01-10 12:06] VITALS: BP 139/81; PULSE 78; RESP 16; TEMP 36.6; O2SAT 92
[2023-01-10 12:11] VITALS: BP 148/85; PULSE 75; RESP 16; O2SAT 88
[2023-01-10 12:16] VITALS: BP 144/69; PULSE 77; RESP 16; O2SAT 91
[2023-01-10 12:21] VITALS: BP 143/73; PULSE 78; RESP 16; O2SAT 90
--- NOTE | 2023-01-10 12:29 | W.PM.OPN ---
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 Anesthesia was administered per protocol. The patient was placed in a dorsal lithotomy position and prepped and draped in a sterile fashion. Safety pause time-out was performed. Antibiotics being given. cystoscopy performed. Recurrent lesions seen within the bulbar urethra. There was small satellite lesions seen within the distal aspect of the urethra. Switching to resectoscope this was placed and we were able to carefully resect the tumor. The base was fulgurated. At no time was more than 50% of the circumference of the urethra fulgurated. A completion of fulguration Rosa catheter was placed which will remain for 3-4 days. Topical therapy will be required. Gel application of mitomycin-C will be considered. Pathology: Recurrent superficial urethral cancer Drains: Rosa catheter
[2023-01-10 12:36] VITALS: BP 142/86; PULSE 75; RESP 16; TEMP 36.6; O2SAT 91
== END 2023-01-10 13:31 | disposition home or self-care (01) ==
PROVIDERS: PCP Family Medicine; Visit Provider Urology
PROC: (CPT 52234; principal; 2023-01-10 09:30)
DX: C67.9 Malignant neoplasm of bladder, unspecified (principal); C66.9 Malignant neoplasm of unspecified ureter; C68.0 Malignant neoplasm of urethra; L90.0 Lichen sclerosus et atrophicus; Z85.528 Personal history of other malignant neoplasm of kidney; N43.3 Hydrocele, unspecified; I25.10 Atherosclerotic heart disease of native coronary artery without angina pectoris; Z95.5 Presence of coronary angioplasty implant and graft; I10 Essential (primary) hypertension; E78.00 Pure hypercholesterolemia, unspecified; J43.9 Emphysema, unspecified; R06.09 Other forms of dyspnea; K21.9 Gastro-esophageal reflux disease without esophagitis; E66.9 Obesity, unspecified; M19.90 Unspecified osteoarthritis, unspecified site; Z79.899 Other long term (current) drug therapy; Z79.82 Long term (current) use of aspirin; Z79.51 Long term (current) use of inhaled steroids; Z98.890 Other specified postprocedural states
CPT/HCPCS: 52234; 88307; J1100; J1885; J1956; J2405

== ENCOUNTER → 2023-01-13 12:49 | Outpatient (BNVA) | payer MEDICARE, SELFPAY | PROVIDERS: PCP Family Medicine; Visit Provider Urology ==

== ENCOUNTER → 2023-01-27 11:31 | Outpatient (BNVA) | payer MEDICARE, SELFPAY | PROVIDERS: PCP Family Medicine; Visit Provider Urology | DX: C66.9 Malignant neoplasm of unspecified ureter (principal); C79.19 Secondary malignant neoplasm of other urinary organs; C67.9 Malignant neoplasm of bladder, unspecified | CPT/HCPCS: 99212 ==

== ENCOUNTER 2023-03-10 11:40 | Outpatient (REF) | payer MEDICARE, SELFPAY ==
[2023-03-10 14:31] LABS: MANUAL DIFF FLAG NO
[2023-03-10 14:42] LABS: Basophils Percent Auto 0.6 % (0-2); Eosinophils Absolute Auto 0.2 X10*3/uL (0.0-0.4); Eosinophils Percent Auto 4.2 % (0-4); Hematocrit 43.6 % (42.0-52.0); Hemoglobin 13.3 g/dl (14.0-18.0); Imm Gran Abs Auto 0.01 X10*3/uL (0.00-0.03); Imm Gran Pct Auto 0.2 % (0.0-0.4); Lymphocytes Percent Auto 18.8 % (20-40); Mean Corpuscular HGB Conc 30.5 g/dl (31.0-36.0); Mean Corpuscular Hemoglobin 29.7 pg (27.0-33.0); Mean Corpuscular Volume 97.3 fL (80.0-98.0); Mean Platelet Volume 11.1 fL (9.4-12.4); Monocytes Absolute Auto 0.5 X10*3/uL (0.1-1.2); Monocytes Percent Auto 9.2 % (2-11); Neutrophils Absolute Auto 3.6 x10*3/uL (2.0-8.3); Platelet Count 154 X10*3/uL (160-400); Red Blood Count 4.48 X10*6/uL (4.60-5.80); Red Cell Distribution Width 14.1 % (11.0-16.0); White Blood Count 5.4 X10*3/uL (4.8-10.8)
[2023-03-10 15:03] LABS: Anion Gap 11 (12-20); Blood Urea Nitrogen 20 mg/dL (9-16); Carbon Dioxide 33 mmol/L (22-29); Chloride 104 mmol/L (96-108); Estimated Glomerular Filt Rate > 60; Potassium 4.8 mmol/L (3.3-5.1); Sodium 143 mmol/L (135-145)
== END 2023-03-10 11:41 | disposition home or self-care (01) ==
LOC: HO.HMGCLDS 11:40
PROVIDERS: Absent Provider Urology; PCP Family Medicine; Visit Provider Family Medicine
DX: R06.02 Shortness of breath (principal); I10 Essential (primary) hypertension
CPT/HCPCS: 36415; 80051; 82565; 84520; 85025

== ENCOUNTER 2023-03-30 07:34 | Outpatient (REF) | payer MEDICARE, SELFPAY ==
--- NOTE | ~2023-03-30 | XR_ITS ---
EXAMINATION: XR KNEE, RIGHT XR KNEE, LEFT XR KNEE STANDING, BILATERAL CLINICAL INFORMATION: Pain in the left knee and pain in the right knee. COMPARISON: X-rays of the knees August 2022 TECHNIQUE: Upright AP view of both knees and single lateral view of each knee. FINDINGS: RIGHT KNEE: Right total knee arthroplasty noted with components in usual and unchanged position. No periprosthetic fracture or suspicious area of lucency. No effusion. Incidental note is made of a metallic electronic device overlying the soft tissues of the distal thigh. LEFT KNEE: There is a total knee arthroplasty in place. The components are in the usual position and are unchanged. There is no periprosthetic fracture or surrounding abnormal lucency. There is no effusion. The surrounding soft tissues are normal. Incidental note is made of a metallic electronic device overlying the soft tissues of the distal thigh. XR/XR knee LT 2V IMPRESSION: RIGHT KNEE: Right total knee arthroplasty without change or abnormality. LEFT KNEE: Left total knee arthroplasty without change or abnormality.
--- NOTE | ~2023-03-30 | XR_ITS ---
EXAMINATION: XR KNEE, RIGHT XR KNEE, LEFT XR KNEE STANDING, BILATERAL CLINICAL INFORMATION: Pain in the left knee and pain in the right knee. COMPARISON: X-rays of the knees August 2022 TECHNIQUE: Upright AP view of both knees and single lateral view of each knee. FINDINGS: RIGHT KNEE: Right total knee arthroplasty noted with components in usual and unchanged position. No periprosthetic fracture or suspicious area of lucency. No effusion. Incidental note is made of a metallic electronic device overlying the soft tissues of the distal thigh. LEFT KNEE: There is a total knee arthroplasty in place. The components are in the usual position and are unchanged. There is no periprosthetic fracture or surrounding abnormal lucency. There is no effusion. The surrounding soft tissues are normal. Incidental note is made of a metallic electronic device overlying the soft tissues of the distal thigh. XR/XR knee standing BI IMPRESSION: RIGHT KNEE: Right total knee arthroplasty without change or abnormality. LEFT KNEE: Left total knee arthroplasty without change or abnormality.
--- NOTE | ~2023-03-30 | XR_ITS ---
EXAMINATION: XR KNEE, RIGHT XR KNEE, LEFT XR KNEE STANDING, BILATERAL CLINICAL INFORMATION: Pain in the left knee and pain in the right knee. COMPARISON: X-rays of the knees August 2022 TECHNIQUE: Upright AP view of both knees and single lateral view of each knee. FINDINGS: RIGHT KNEE: Right total knee arthroplasty noted with components in usual and unchanged position. No periprosthetic fracture or suspicious area of lucency. No effusion. Incidental note is made of a metallic electronic device overlying the soft tissues of the distal thigh. LEFT KNEE: There is a total knee arthroplasty in place. The components are in the usual position and are unchanged. There is no periprosthetic fracture or surrounding abnormal lucency. There is no effusion. The surrounding soft tissues are normal. Incidental note is made of a metallic electronic device overlying the soft tissues of the distal thigh. XR/XR knee RT 2V IMPRESSION: RIGHT KNEE: Right total knee arthroplasty without change or abnormality. LEFT KNEE: Left total knee arthroplasty without change or abnormality.
--- NOTE | ~2023-03-30 | XR_ITS ---
EXAMINATION: XR SHOULDER, LEFT CLINICAL INFORMATION: Pain in left shoulder axial COMPARISON: None available. TECHNIQUE: AP external rotation, Grashey, scapular Y, and axillary views of the left shoulder. FINDINGS: The humeral joint: There are prominent marginal osteophytes along the inferior aspect of the humeral head. Suspect at least mild joint space narrowing. Probable subchondral cysts along the inferior glenoid. Findings indicative of moderate glenohumeral arthrosis . Acromioclavicular joint mild hypertrophic osteoarthritis.. XR/XR shoulder LT min 2V IMPRESSION: Moderate osteoarthritis of the left shoulder. Mild osteoarthritis of the left acromioclavicular joint
== END 2023-03-30 07:35 | disposition home or self-care (01) ==
LOC: HO.HOSX 07:34
PROVIDERS: PCP Family Medicine; Visit Provider Physician Assistant
DX: M19.012 Primary osteoarthritis, left shoulder (principal); M25.562 Pain in left knee; M25.561 Pain in right knee
CPT/HCPCS: 73030; 73560; 73565; 99202

== ENCOUNTER 2023-06-09 08:54 | Outpatient (REF) | payer MEDICARE, SELFPAY ==
[2023-06-09 17:07] LABS: Urine Cytology See Pathology rpt
== END 2023-06-09 08:55 | disposition home or self-care (01) ==
LOC: HO.LAB 08:54
PROVIDERS: PCP Family Medicine; Visit Provider Urology
DX: C67.9 Malignant neoplasm of bladder, unspecified (principal); C79.19 Secondary malignant neoplasm of other urinary organs; E66.01 Morbid (severe) obesity due to excess calories
CPT/HCPCS: 51798; 52000; 81003; 88112; 99212; C1747

== ENCOUNTER 2023-06-09 08:54 | Outpatient (AMB) | payer MEDICARE, SELFPAY ==
--- NOTE | 2023-06-09 08:56 | A.OFFVIS_ITS ---
Intake Intake Visit Reasons: 6w follow up Intake Note: Patient is present for Follow Up PVR Urology Med: None Antibiotic Allergy: None Blood Thinner: Aspirin Pharmacy: [facility] P[facility]: Allergies No Known Allergies [No Known Allergies*] Allergy (Verified 06/09/23 08:57) Medication List - Last Reconciled 06/09/23 by Charan Baker MD amlodipine 10 mg PO BEDTIME aspirin (Lindsay Low Dose Aspirin) 81 mg PO DAILY blood sugar diagnostic As directed budesonide-formoterol 80-4.5 mcg/actuation (Symbicort) 2 puffs inhalation BID carvedilol 50 mg PO BID gabapentin 600 mg PO BEDTIME gabapentin 300 mg PO BEDTIME hydralazine 50 mg PO TID isosorbide mononitrate ER 60 mg PO QAM loratadine 10 mg PO DAILY losartan 100 mg PO DAILY omeprazole 20 mg PO BEDTIME semaglutide (weight loss) (Wegovy) 2.4 mg (0.75 mL) subcut QWEEK 90 days HPI HPI Comments History of Present Illness Details Suleiman is a very pleasant male. He is a patient of Dr. Cuadra. He seen for the following urologic conditions - bladder cancer - hydrocele - lower urinary tract symptoms - penile lichen sclerosis Here for check cystoscopy Urethra slowly healing No evidence of disease 4 month follow-up check cysto Discussed weight management for semaglutide - given his ongoing weight related complications this would be a good idea - Has qualifying conditions including difficult to manage HTN requring multiple agents and cardiac compromise Urethral recurrent low-grade superficial cancer Initial therapy with resection 04/01 completed urethral mitomycin-C with clamping per protocol Bladder Cancer: High-grade superficial initial diagnosis 2017 with upper tract low-grade transitional cell - 12/29 low-grade on urethra Ongoing surveillance Bladder cancer was initially diagnosed during evaluation for microscopic hematuria - 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 Bladder intervention(s) performed 07/27 Low Grade - along course of ureter 02/25 , TURBT, with Mitomycin C, T1 invades subepthium, Low Grade 06/28 TURBT, gemcitabine instillation , multiple low grade Ta, intermediate risk. - 12/28 TURBT low-grade TA intermediate risk, 12/29 TURBT of urethral tumor low grade Recurrence Risk per EORTC Intermediate Risk. 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 - 12/28 CT urogram no evidence of recurrence Previous intravesical therapy 03/28 , BCG Induction - 6 weeks 07/28 Gemcitabine maintenance 11/29 Gemcitabine, 12/28 6 week reinduction gemcitabine, 07/31 3 week boost gemcitabine Planned treatment - check cystoscopy Upper tract transitional cell carcinoma right side right nephrectomy performed 2018 imaging 03/29 CT urogram normal PFSH Medical History Arthritis CAD (coronary artery disease) Elevated cholesterol Emphysema lung GERD (gastroesophageal reflux disease) History of renal cell cancer Hx of bladder cancer Hypertension On beta maria antonia at home Surgical History History of bladder surgery History of nephrectomy, right History of total left knee replacement (TKR) History of total right knee replacement Hx of cystoscopy Hx of cystoscopy Hx of heart artery stent Social History Are you a primary caregiver services home to a significant other at home: No Do you presently have visiting nurse or other home services: No Patient Tobacco Use Status: Never used Tobacco Current occupational status: retired Review of Systems Const Denies chills and Denies fever(s) Card Reports no additional complaints and Denies syncope Resp Denies cough GI Denies abdominal pain and Denies heartburn Reports as per HPI and Denies change in libido Neuro Denies syncope Psych Denies change in libido Endo Denies change in libido Physical Exam Const General: cooperative, healthy appearing, comfortable and no acute distress Orientation/consciousness: patient oriented x3 HEENT Face and sinus: Yes normal facial exam Mouth: moist mucous membranes Neck Neck: Yes normal visual inspection, Yes full ROM and Yes trachea midline Chest Chest palpation & inspection: normal inspection of the chest Resp Effort & Inspection: normal respiratory effort, able to speak in complete sentences and no respiratory distress GI Inspection: Yes normal to inspection Back/Spine/Pelvis Cervical Spine: normal cervical lordosis Thoracic/Lumbar Spine: thoracic and lumbar spine normal to inspection Skin General skin exam: no rashes or lesions noted Neuro General: patient oriented x3, gait normal, tone normal and moves all extremities Extrem General: Yes normal to inspection and Yes capillary refill normal Office Procedures Cystoscopy Consent Discussed risk and benefit or proposed procedure with the patient. Information consent for procedure given to the patient. Discussed technical aspects, risks, benefits and alternatives in full. Addressed all of the patient's questions and concerns regarding the procedure. The patient demonstrated knowledge and understanding. They wish to proceed with this procedure. Preparation The patient was prepped in the usual manner. A assembler aircraft power plant was present and in the room. Genitalia was prepped with betadine solution in a sterile manner. Lidocaine Jelly 2% was placed into the urethra and 16Fr flexible Olympus cystoscope was inserted into the meatus after adequate lubrication. 38899-[id number] DISPOSABLE SCOPE URO-G FLEXIBLE SCOPE Procedure code (CPT) selection complete Post Void Residual Post Residual Void Post Void Residual (PVR): 0 [id number] Void Residual by ultrasound Office Meds lidocaine HCl Performing Provider: Charan Baker MD Administered by: Analy Tripp RN on 06/09/23 09:06 Dose Route Admin Location Lot Number Expiration Date NDC Noc Analyst 10 mL intra-urethral nitrofurantoin monohyd/m-cryst 100 mg Performing Provider: Charan Baker MD Administered by: Analy Tripp RN on 06/09/23 09:06 Dose Route Admin Location Lot Number Expiration Date ND Noc Analyst 100 mg PO naproxen Performing Provider: Charan Baker MD Administered by: Analy Tripp RN on 06/09/23 09:06 Dose Route Admin Location Lot Number Expiration Date NDC Noc Analyst 500 mg PO Results AMB Urinalysis, Automated UA Leukoctes 0 [place]/uL Last Edit by ROSENDA Cade on 06/09/23 09:11 UA Nitrite Negative Last Edit by ROSENDA Cade on 06/09/23 09:11 UA Urobilinogen 1 mg/dL Last Edit by ROSENDA Cade on 06/09/23 09:11 UA Protein 30 mg/dL Last Edit by Kyara Nelson, RMA on 06/09/23 09:11 UA pH 5.0 Last Edit by Kyara Nelson, RMA on 06/09/23 09:11 UA Blood 0 Robert/uL Last Edit by Kyara Nelson, RMA on 06/09/23 09:11 UA Specific Baird 1.030 Last Edit by Kyara Nelson, RMA on 06/09/23 09: 11 UA Ketone Positive Last Edit by Kyara Nelson, RMA on 06/09/23 09:11 UA Bilirubin 0 mg/dL Last Edit by Kyara Nelson, RMA on 06/09/23 09:11 UA Glucose 0 mg/dL Last Edit by Kyara Nelson, RMA on 06/09/23 09:11 Results Reviewed Results Reviewed: Laboratory Last Values Urine pH (Auto) 5.0 06/09/23 08:58 Specific Baird (Auto) 1.030 06/09/23 08:58 Urine Protein (Auto) 30 mg/dL 06/09/23 08:58 Glucose (UA)(Auto) 0 mg/dL 06/09/23 08:58 Urine Ketones (Auto) Positive 06/09/23 08:58 Urine Blood (Auto) 0 Robert/uL 06/09/23 08:58 Urine Nitrite (Auto) Negative 06/09/23 08:58 Urine Bilirubin (Auto) 0 mg/dL 06/09/23 08:58 Urine Urobilinogen (Auto) 1 mg/dL 06/09/23 08:58 Leukocyte Esterase (Auto) 0 [place]/uL 06/09/23 08:58 Assessment & Plan Assessment & Plan (1) Morbid obesity: Code(s): E66.01 - Morbid (severe) obesity due to excess calories (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: Comment: Transitional cell carcinoma in the urethra Code(s): C79.19 - Secondary malignant neoplasm of other urinary organs (3) Bladder cancer: Comment: Recurrent low-grade superficial Code(s): C67.9 - Malignant neoplasm of bladder, unspecified Plan Four month follow-up check cystoscopy Start semaglutide subcutaneous - 6 month prescription provided Orders: Orders Urine Cytology Today C67.9 - Malignant neoplasm of bladder, unspecified AMB Cystoscopy Today C67.9 - Malignant neoplasm of bladder, unspecified AMB Urinalysis Automated Today Z13.9 - Encounter for screening, unspecified AMB Post Void Residual by ultrasound Today N13.8 - Other obstructive and reflux uropathy, N40.1 - Benign prostatic hyperplasia with lower urinary tract symptoms Medications: New semaglutide (weight loss) (Wegovy) 2.4 mg (0.75 mL) subcut QWEEK 9.75 mL 1RF 90 days Patient Instructions: Imaging studies, laboratory and physical exam results were discussed and reviewed in detail. No major barriers to patient understanding were identified. An opportunity to ask questions regarding the treatment plan was provided. All questions were answered. The patient expressed understanding and agreement with the above treatment plan. The patient is aware they should contact our office by phone for worsening of their current condition or the appearance of new urologic symptoms. Compliance is encouraged with any medications and followup testing that is ordered. It is a privilege to participate in the urologic care of your patient. If you have any questions or concerns regarding treatment for the above conditions, or other urologic issues, please do not hesitate to contact me. The office telephone contact is [phone]. This note is constructed using voice recognition software. While every effort has been made to ensure accuracy engineer byproduct errors may have been included. 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
== END 2023-06-09 09:35 | disposition home or self-care (01) ==
PROVIDERS: PCP Family Medicine; Visit Provider Urology
DX: C79.19 Secondary malignant neoplasm of other urinary organs (principal); C67.8 Malignant neoplasm of overlapping sites of bladder; E66.01 Morbid (severe) obesity due to excess calories
CPT/HCPCS: 52000; 99214

== ENCOUNTER 2023-06-23 08:19 | Outpatient (AMB) | payer MEDICARE, SELFPAY ==
--- NOTE | 2023-06-23 08:26 | MHC.OFFVIS ---
Intake Intake Visit Reasons: OV-s/p bilat TKA-3 month follow up Intake Note: Pt presents to the office today for a s/p bilat TKA. Pt states his right knee is feeling fine with no discomfort. He does have intermittent ?tight feeling? in his left knee. He denies any fevers or chills. Pt states he gets numbness and tingling but thinks it could be an issue with his back as well so he is seeing [facility]. The patient has had cortisone injections given into his low back by Dr. Dominguez. The patient states that he is due to get another MRI of his lumbar spine in the near future. The tentative plan is for ?the space around the nerve in my back to be opened up?. Allergies No Known Allergies [No Known Allergies*] Allergy (Verified 06/23/23 08:26) Medication List - Last Reconciled 06/23/23 by Sandip Barnes MD amlodipine 10 mg PO BEDTIME aspirin (Lindsay Low Dose Aspirin) 81 mg PO DAILY blood sugar diagnostic As directed budesonide-formoterol 80-4.5 mcg/actuation (Symbicort) 2 puffs inhalation BID carvedilol 50 mg PO BID gabapentin 600 mg PO BEDTIME gabapentin 300 mg PO BEDTIME hydralazine 50 mg PO TID isosorbide mononitrate ER 60 mg PO QAM loratadine 10 mg PO DAILY losartan 100 mg PO DAILY omeprazole 20 mg PO BEDTIME semaglutide 0.25 mg (0.368 mL) subcut QWEEK 28 days [facility] Medical History Emphysema lung Hypertension Arthritis GERD (gastroesophageal reflux disease) History of renal cell cancer Hx of bladder cancer On beta maria antonia at home Elevated cholesterol CAD (coronary artery disease) Surgical History History of total right knee replacement Hx of cystoscopy History of total left knee replacement (TKR) Hx of heart artery stent Hx of cystoscopy History of nephrectomy, right History of bladder surgery Social History Are you a primary palliative care nurse to a significant other at home: No Do you presently have visiting nurse or other home services: No Patient Tobacco Use Status: Never used Tobacco Current occupational status: retired Physical Exam Const Other: Well-nourished well-developed very friendly male awake alert and oriented x3 in no acute distress Extrem Other: Bilateral lower extremity examination shows good capillary refill, no skin lesions noted, normal sensation light touch Bilateral knee examination shows that the surgical incisions are well healed, no erythema, full active extension and flexion 120 degrees, his patellae track well, no instability Results Reviewed Results Reviewed: X-rays of the patient's bilateral knees show total knee arthroplasties in good position with no signs of loosening, no acute bony abnormalities Assessment & Plan Assessment & Plan (1) Bilateral knee pain: Code(s): M25.561 - Pain in right knee; M25.562 - Pain in left knee Plan: Mr. Johnson continues to do fairly well after undergoing bilateral total knee replacement surgeries. He will continue with his home exercise program. He will follow up with his back specialists as scheduled. Some of the patient's left leg symptoms are most likely due to lumbar spine pathology. He will contact me prior to his follow-up appointment in 3 months should any questions or concerns arise. Feel free to call me at any time should questions regarding his orthopedic management arise. I spent 22 minutes in reviewing the patient's records and imaging studies, seeing the patient and documenting in the medical record. Coding Level of Care Code Est Pt Level 2 (86815) Diagnoses Bilateral knee pain M25.561; M25.562
== END 2023-06-23 08:42 | disposition home or self-care (01) ==
PROVIDERS: PCP Family Medicine; Visit Provider Orthopaedic Surgery
DX: M25.561 Pain in right knee (principal); M25.562 Pain in left knee
CPT/HCPCS: 99212

== ENCOUNTER → 2023-06-23 08:19 | Outpatient (BNVA) | payer MEDICARE, SELFPAY | PROVIDERS: PCP Family Medicine; Visit Provider Orthopaedic Surgery | DX: Z47.1 Aftercare following joint replacement surgery (principal); Z96.653 Presence of artificial knee joint, bilateral | CPT/HCPCS: 99212 ==

== ENCOUNTER 2023-07-01 08:25 | Outpatient (REF) | payer MEDICARE, SELFPAY ==
[2023-07-01 11:19] LABS: MANUAL DIFF FLAG NO
[2023-07-01 11:29] LABS: Appearance Urine Clear; Color Urine Yellow; Glucose Urine UA Negative (Negative); Leukocyte Esterase Urine Negative (Negative); Nitrite Urine Negative (Negative); UMIC TRIGGER UA YES; Urine Blood Negative (Negative); Urine Ketones Negative (Negative); Urine Protein 30 (1+) mg/dL (Neg-Trace)
[2023-07-01 11:34] LABS: Bacteria Urine None Seen (None Seen); Hyaline Casts Urine 0-2 /LPF (0-2); Squamous Epithelial Cell Urine 0-2 /HPF (0-2); WBC Urine 0-5 /HPF (0-5)
[2023-07-01 11:38] LABS: Basophils Percent Auto 0.3 % (0-2); Eosinophils Absolute Auto 0.2 X10*3/uL (0.0-0.4); Hemoglobin 14.3 g/dl (14.0-18.0); Imm Gran Abs Auto 0.02 X10*3/uL (0.00-0.03); Imm Gran Pct Auto 0.3 % (0.0-0.4); Lymphocytes Percent Auto 16.6 % (20-40); Mean Corpuscular HGB Conc 30.4 g/dl (31.0-36.0); Mean Corpuscular Hemoglobin 30.1 pg (27.0-33.0); Mean Corpuscular Volume 98.9 fL (80.0-98.0); Mean Platelet Volume 10.5 fL (9.4-12.4); Monocytes Absolute Auto 0.6 X10*3/uL (0.1-1.2); Monocytes Percent Auto 9.3 % (2-11); Neutrophils Absolute Auto 4.2 x10*3/uL (2.0-8.3); Neutrophils Percent Auto 69.5 % (45-73); Platelet Count 148 X10*3/uL (160-400); Red Blood Count 4.75 X10*6/uL (4.60-5.80); Red Cell Distribution Width 14.2 % (11.0-16.0)
[2023-07-01 11:45] LABS: Estimated Average Glucose 126 mg/dL
[2023-07-01 12:29] LABS: Alanine Aminotransferase 21 U/L (0-40); Alkaline Phosphatase 60 U/L (39-117); Anion Gap 12 (12-20); Aspartate Amino Transferase 16 U/L (5-37); Blood Urea Nitrogen 21 mg/dL (9-16); Calcium 8.9 mg/dL (8.4-10.2); Carbon Dioxide 37 mmol/L (22-29); Chloride 99 mmol/L (96-108); Estimated Glomerular Filt Rate > 60; Glucose Fasting 110 mg/dL (60-99); Glucose Random 109 mg/dL (60-115); Potassium 4.3 mmol/L (3.3-5.1); Sodium 144 mmol/L (135-145); Total Protein 7.2 g/dL (6.5-8.0)
== END 2023-07-01 08:26 | disposition home or self-care (01) ==
LOC: HO.HMGCLDS 08:25
PROVIDERS: Urology; PCP Family Medicine; Visit Provider Family Medicine
DX: C67.9 Malignant neoplasm of bladder, unspecified (principal); I10 Essential (primary) hypertension; E11.9 Type 2 diabetes mellitus without complications
CPT/HCPCS: 36415; 80053; 81001; 82947; 83036; 83735; 85025

== ENCOUNTER 2023-08-09 06:42 | Outpatient (REF) | payer MEDICARE, SELFPAY ==
[2023-08-09 11:42] LABS: Cholesterol 232 mg/dL (<200); HDL Cholesterol 29 mg/dL (>40); LDL Cholesterol Calculated 157 mg/dL (<100); Triglycerides 233 mg/dL (<150)
[2023-08-09 11:57] LABS: Vitamin B12 381 pg/mL (200-900)
[2023-08-09 12:03] LABS: Thyroid Stimulating Hormone 2.79 uIU/mL (0.32-4.0); Vitamin D 25-OH Total 35.5 ng/mL (>30)
== END 2023-08-09 06:43 | disposition home or self-care (01) ==
LOC: HO.HMGCLDS 06:42
PROVIDERS: PCP Family Medicine; Visit Provider Family Medicine
DX: E66.9 Obesity, unspecified (principal); I25.10 Atherosclerotic heart disease of native coronary artery without angina pectoris; R53.83 Other fatigue; G62.9 Polyneuropathy, unspecified; C67.9 Malignant neoplasm of bladder, unspecified
CPT/HCPCS: 36415; 80061; 82306; 82607; 84443

== ENCOUNTER 2023-08-10 16:09 | Emergency (ER) | payer MEDICARE, SELFPAY ==
--- NOTE | ~2023-08-10 | XR_ITS ---
EXAMINATION: XR CHEST CLINICAL INFORMATION: Hypoxia COMPARISON: None available. TECHNIQUE: 2 views of the chest were obtained. FINDINGS: Heart size upper limits of normal to mildly enlarged. There is no evidence of gross CHF. Bibasilar atelectasis is seen. Degenerative changes are present in the spine. The aorta is unfolded and tortuous. No pleural effusions are seen. XR/XR chest 2V IMPRESSION: No acute intrathoracic disease. Bibasilar atelectasis.
--- NOTE | ~2023-08-10 | US_ITS ---
EXAMINATION: US VENOUS ULTRASOUND WITH DOPPLER LOWER EXTREMITY, LEFT CLINICAL INFORMATION: Left leg pain COMPARISON: Left leg DVT study 02/05/2020 TECHNIQUE: Ultrasound of the deep veins is performed from the hip to the calf with compression sonography and color and pulse Doppler assessment. Spectral analysis with color-flow imaging is performed. FINDINGS: There is normal venous compression and respiratory variation and augmented flow. The visualized common femoral vein, superficial femoral vein, profunda femoral vein, popliteal vein, and the trifurcation region shows no evidence of deep venous thrombosis. There is no significant popliteal fossa cyst. If the patient's symptoms persist, followup ultrasound in 5 days 7 days might be of value to exclude proximal propagation from a non-visualized calf vein. US/US venous duplex LE LT IMPRESSION: No DVT demonstrated in the left lower extremity.
--- NOTE | ~2023-08-10 | CT_ITS ---
EXAMINATION: CT ANGIOGRAM OF THE CHEST WITH AND WITHOUT CONTRAST (CT PULMONARY ANGIOGRAM FOR PE) CLINICAL INFORMATION: Reason for Exam cancer history left leg swelling hypoxia COMPARISON: None available. TECHNIQUE: Prior to contrast administration, noncontrast localization images were obtained. Subsequently, multidetector volumetric imaging was performed from the thoracic inlet to below the diaphragms following the administration of 65 mL Omnipaque 350 intravenous contrast. No contrast reaction reported Sagittal, coronal, and MIP oblique sagittal reformatted images were obtained on the CT workstation, uploaded to PACS, and reviewed. This CT examination was performed using dose optimization techniques as appropriate, variously including the following: *Automated exposure control *Adjustment of mA and/or kV according to patient size (this includes techniques or standardized protocols for targeted exams where dose is matched to indication/reason for exam; i.e. extremities or head) *Use of iterative reconstruction technique Total exam dose-length product 625 mGy-cm FINDINGS: QUALITY OF STUDY/CONTRAST BOLUS: Satisfactory. PULMONARY ARTERIES: Motion degrades imaging. Right apex, right upper lobe anterior, right middle lobe. Left upper lobe,. There is no filling defect to suggest a pulmonary embolism. No bowing of the septum. No reflux into the hepatic veins. Marked coronary calcification felt to be present. The thoracic inlet is within normal limits. The axillary regions are unremarkable. Partially imaged upper abdominal structures show no suspicious finding. Centrally no bulky adenopathy. Some shotty nodes. Some mild hilar adenopathy right greater than left. Imaging of the lung salmon. Right lung; some mild right basilar atelectasis or infiltrate. Some scattered areas of groundglass change which could represent small airways disease or subtle areas of infiltrate. Left lung; lingular atelectasis Lung lesion cannot be excluded adjacent to the pleura. Measures 1.5 x 1.2 cm but again this may just be chronic change. Attention to follow-up. Left basilar atelectasis or scarring is noted. Review of the bone windows shows degenerative change. No lesion. CT/CT angio chest PE protocol IMPRESSION: There is motion here which degrades imaging. For this reason and a small peripheral embolism cannot be excluded but there is no convincing evidence of pulmonary embolism on the imaging submitted. Mild right basilar atelectasis versus infiltrate and some scattered areas of groundglass change on the right which may indicate small airways disease or subtle areas of infiltrate. Left basilar scarring or atelectasis is noted within the density in the left lingula which may be chronic representing thickened scarring or atelectasis but an underlying lesion cannot be excluded given the appearance. Recommendation is 3 months low-dose noncontrast follow-up for continued evaluation Note is made of bronchial thickening in the lungs.
--- NOTE | ~2023-08-10 | XR_ITS ---
EXAMINATION: LEFT TIB-FIB, LEFT FOOT CLINICAL INFORMATION: Left foot redness with concern for cellulitis COMPARISON: Bilateral knees 08/17/2022 TECHNIQUE: 2 views of the tibia and fibula, 3 views of the foot FINDINGS: A knee joint prosthesis is present which appears to be in good position with intact hardware. The tibia and fibula otherwise appear unremarkable. There is a subchondral cyst in the metatarsal head of the first digit No significant bone, joint or soft tissue abnormality is seen involving the left foot. A plantar calcaneal spur is noted. No bony destructive lesions seen to suggest osteomyelitis. XR/XR tibia fibula LT 2V IMPRESSION: No evidence of osteomyelitis. Incidental findings as described above including subchondral cyst in the head of the first metatarsal.
--- NOTE | ~2023-08-10 | XR_ITS ---
EXAMINATION: LEFT TIB-FIB, LEFT FOOT CLINICAL INFORMATION: Left foot redness with concern for cellulitis COMPARISON: Bilateral knees 08/17/2022 TECHNIQUE: 2 views of the tibia and fibula, 3 views of the foot FINDINGS: A knee joint prosthesis is present which appears to be in good position with intact hardware. The tibia and fibula otherwise appear unremarkable. There is a subchondral cyst in the metatarsal head of the first digit No significant bone, joint or soft tissue abnormality is seen involving the left foot. A plantar calcaneal spur is noted. No bony destructive lesions seen to suggest osteomyelitis. XR/XR foot LT min 3V IMPRESSION: No evidence of osteomyelitis. Incidental findings as described above including subchondral cyst in the head of the first metatarsal.
[2023-08-10 16:51] VITALS: BP 148/86; PULSE 80; RESP 20; TEMP 36.7; O2SAT 86; BMI 45.9
--- NOTE | 2023-08-10 17:24 | ECG_ITS ---
Test Reason : LEG SWELLING Blood Pressure : / mmHG Vent. Rate : 083 BPM Atrial Rate : 083 BPM P-R Int : 132 ms QRS Dur : 096 ms QT Int : 380 ms P-R-T Axes : 040 009 032 degrees QTc Int : 446 ms Normal sinus rhythm Low voltage QRS Otherwise normal ECG When compared with ECG of 14-APR-2021 08:02, No significant change was found Referred By: Saleem Cuadra Electronically Signed By:MERYL RAMIREZ MD
--- NOTE | 2023-08-10 17:26 | ED.LOWEXIN ---
HPI - Extremity Injury (Lower) General Chief Complaint: Extremity Injury, Lower Stated Complaint: Dr Root called on behalf of ankle Time Seen by Provider: 08/10/23 17:16 Source: patient and family Mode of arrival: ambulatory Limitations: no limitations History of Present Illness HPI Narrative: 72-year-old male history of neuropathy to both legs presents to emergency room complaining of left foot pain. He started noticed yesterday she is very red he states he cannot put any weight on his left foot. He tried to call Dr. Black hour prior to coming in and was advised to come to the ER. Patient denies any history of cellulitis states he never had this problem has he denies fevers chills cough he denies any blood clots to his legs. Patient was also found to be hypoxic at 86 on room air in triage was brought back to room immediately. He has known oxygen and satting 95% on 2 L. He denies any history of CHF he is not any medications for that at this time. He denies shortness of breath Related Data Home Medications Medication Instructions Recorded Confirmed omeprazole 20 mg capsule,delayed 20 mg PO BEDTIME 08/07/20 06/23/23 release amlodipine 10 mg tablet 10 mg PO BEDTIME 09/12/20 06/23/23 aspirin 81 mg tablet,delayed 81 mg PO DAILY 12/16/20 06/23/23 release (Lindsay Low Dose Aspirin) loratadine 10 mg tablet 10 mg PO DAILY 12/16/20 06/23/23 gabapentin 600 mg tablet 600 mg PO BEDTIME 01/13/21 06/23/23 blood sugar diagnostic #10 ea 04/17/21 06/23/23 carvedilol 25 mg tablet 25 mg PO BID 04/17/21 06/23/23 gabapentin 300 mg capsule 300 mg PO BEDTIME 04/17/21 06/23/23 hydralazine 50 mg tablet 50 mg PO BID 04/17/21 06/23/23 budesonide-formoterol HFA 80 2 puff inhalation BID 11/26/22 06/23/23 mcg-4.5 mcg/actuation aerosol inhaler (Symbicort) isosorbide mononitrate 60 mg 60 mg PO QAM 11/26/22 06/23/23 tablet,extended release 24 hr losartan 100 mg tablet 100 mg PO DAILY 11/26/22 06/23/23 dulaglutide 0.75 mg/0.5 mL 0.75 mg subcut QWEEK 08/10/23 subcutaneous pen injector (Trulicity) furosemide 40 mg tablet 40 mg PO QAM 08/10/23 Allergies Allergy/AdvReac Type Severity Reaction Status Date / Time No Known Allergies Allergy Verified 06/23/23 08:26 [No Known Allergies*] [facility] Past Medical History Medical History Emphysema lung Hypertension Arthritis GERD (gastroesophageal reflux disease) History of renal cell cancer Hx of bladder cancer On beta maria antonia at home Elevated cholesterol CAD (coronary artery disease) Surgical History History of total right knee replacement Hx of cystoscopy History of total left knee replacement (TKR) Hx of heart artery stent Hx of cystoscopy History of nephrectomy, right History of bladder surgery Social History Social History Are you a primary intensive care anaesthetist to a significant other at home: No Do you presently have visiting nurse or other home services: No Patient Tobacco Use Status: Never used Tobacco Advance Directives: No Advance Directives Information Provided: No Current occupational status: retired Physical Exam Vital Signs: Vital Signs: Last Vital Signs Temp 98.1 F 08/10/23 16:51 Pulse 78 08/10/23 17:32 Resp 18 08/10/23 17:32 BP 138/85 08/10/23 17:32 Pulse Ox 92 08/10/23 17:32 O2 Del Method Nasal Cannula 08/10/23 17:32 O2 Flow Rate 2 08/10/23 17:32 BMI result Body Mass Index 45.9 Course Reevaluation(s) Reevaluation #1: 1940 x-ray ultrasound labs so far have been negative he does not have a DVT but he continues to be hypoxic now 88 on 3 L up to 4 L his T was oxygen above 90. I do feel patient would benefit from admission and explained patient Reevaluation #2: 2010 CTA is negative. Patient will be admitted to medicine for hypoxia and cellullitis of his foot. I did explain this to the patient. I spoke with Dr. Norris from the hospitalist service who agreed with the plan. Medications Administered Discontinued Medications Generic Name Dose Route Start Last Admin Trade Name Freq PRN Reason Stop Dose Admin Sodium Chloride 1,000 mls @ 999 mls/hr 08/10/23 17:30 08/10/23 18:48 Ns IV 08/10/23 18:30 999 mls/hr .Q1H1M PAIGE Administration Vancomycin HCl 2,000 mg in 500 mls @ 250 mls/hr 08/10/23 17:28 08/10/23 19:42 Vancomycin/Ns IV 08/10/23 19:27 250 mls/hr ONCE ONE Administration Cefazolin Sodium 1 gm/ Sodium 50 mls @ 100 mls/hr 08/10/23 17:28 08/10/23 19:47 Chloride IV 08/10/23 17:57 Infused ONCE ONE Infusion Iohexol 100 ml 08/10/23 18:51 08/10/23 18:52 Iohexol 350 Mg/Ml 100 Ml Infus..Btl IV 08/10/23 18:52 65 ml ONCE ONE Administration Morphine Sulfate 4 mg 08/10/23 17:29 08/10/23 18:50 Morphine Sulfate 4 Mg/Ml Cartridge IVPUSH 08/10/23 17:30 4 mg ONCE ONE Administration Protocol Medical Decision Making Medical Decision Making [facility] Narrative: Patient has history of urethral cancer has left foot pain and swelling and is hypoxic to the 80s. I sent patient over for a CTA to rule out blood clots as well as an ultrasound of the leg again x-ray of the foot to rule out any signs of infection will get the patient on early antibiotics Differential Diagnosis Differential Diagnoses: The differential diagnosis associated with the presentation includes Cellulitis DVT less likely arterial occlusions patient has good pulses to both bilateral lower extremities also PEs on the differential Admission/Observation Consideration of admission/observation: Escalation of care including admission/observation considered Consult Healthcare Provider Management of the patient was discussed with: Hospitalist Lab Data [facility] Lab Attestation statement: I reviewed the patient's lab results. 08/10/23 17:50 08/10/23 17:50 Labs: Lab Results 08/10/23 08/10/23 Range/Units 17:50 17:52 WBC 10.6 (4.8-10.8) X10*3/uL RBC 4.54 L (4.60-5.80) X10*6/uL Hgb 13.6 L (14.0-18.0) g/dl Hct 43.7 (42.0-52.0) % MCV 96.3 (80.0-98.0) fL MCH 30.0 (27.0-33.0) pg MCHC 31.1 (31.0-36.0) g/dl RDW 13.9 (11.0-16.0) % Plt Count 149 L (160-400) X10*3/uL MPV 9.5 (9.4-12.4) fL Immature Gran % (Auto) 0.3 (0.0-0.4) % Neut % (Auto) 81.1 H (45-73) % Lymph % (Auto) 8.1 L (20-40) % Whiteside % (Auto) 7.5 (2-11) % Eos % (Auto) 2.7 (0-4) % Baso % (Auto) 0.3 (0-2) % Lymph # (Auto) 0.9 L (1.2-4.9) X10*3/uL Whiteside # (Auto) 0.8 (0.1-1.2) X10*3/uL Eos # (Auto) 0.3 (0.0-0.4) X10*3/uL Baso # (Auto) 0.0 (0.0-0.2) X10*3/uL Abs Immat Gran (auto) 0.03 (0.00-0.03) X10*3/uL Absolute Neuts (auto) 8.6 H (2.0-8.3) x10*3/uL Absolute Nucleated RBC 0.000 (0.0-0.012) X10*3/uL Nucleated RBC % (auto) 0.0 (0.0-0.2) /100WBC Sodium 142 (135-145) mmol/L Potassium 4.5 (3.3-5.1) mmol/L Chloride 101 (96-108) mmol/L Carbon Dioxide 32 H (22-29) mmol/L Anion Gap 14 (12-20) BUN 17 H (9-16) mg/dL Creatinine 0.93 (0.5-1.4) mg/dL Estim Creat Clear Calc 112.8 Estimated GFR > 60 Random Glucose 101 (60-115) mg/dL Lactic Acid 0.8 (0.5-2.0) mmol/L Calcium 9.1 (8.4-10.2) mg/dL Total Bilirubin 1.2 H (0.0-1.0) mg/dL Direct Bilirubin 0.3 (0.0-0.5) mg/dL AST 16 (5-37) U/L ALT 21 (0-40) U/L Alkaline Phosphatase 66 (39-117) U/L B-Natriuretic Peptide 14 (<100) pg/mL Total Protein 7.5 (6.5-8.0) g/dL Albumin 4.1 (3.5-5.0) g/dL Lipase 22 (8-78) U/L COVID-19 (GABE) Negative (Negative) COVID-19 Clin Com See Note Independent Interpretation I performed an independent interpretation of an: EKG, Plain X-Ray and CT Scan Radiology Impression Discussion of test interpretation with radiology: I have reviewed the radiologist's reading. Independent Historian Clinical information obtained from an independent historian. History obtained from or confirmed by: Spouse External Record Review External record reviewed: Inpatient record and Office record Prescription Management I considered prescription management with: Pain Medication Chronic Conditions Patient?s care impacted by: Diabetes and Hypertension Critical Care Time Critical Care Time Critical Care Time: Yes Total Critical Care Time: 36 Attestation: 36 minutes critical care time patient quite well to evaluations was hypoxic requiring oxygen had a complete workup for PE ACS and sepsis found to have cellulitis of the left foot and pneumonia admitted to hospitalist service. Discharge Plan Discharge Clinical Impression: Hypoxia, Cellulitis of left anterior lower leg, Cellulitis of foot, left, Pneumonia Patient Disposition: Admitted As Inpatient Prescriptions: No Action aspirin [Lindsay Low Dose Aspirin] 81 mg Tablet,Delayed Release (Dr/Ec) 81 mg PO DAILY loratadine 10 mg Tablet 10 mg PO DAILY furosemide 40 mg tablet 40 mg PO QAM Trulicity 0.75 mg/0.5 mL pen injector 0.75 mg subcut QWEEK omeprazole 20 mg capsule,delayed release(DR/EC) 20 mg PO BEDTIME gabapentin 600 mg tablet 600 mg PO BEDTIME carvedilol 25 mg tablet 25 mg PO BID gabapentin 300 mg capsule 300 mg PO BEDTIME hydralazine 50 mg tablet 50 mg PO BID (DME) blood sugar diagnostic Strip See Rx Instructions Not Applicable DAILY Qty: 10 Rx Instructions: As directed amlodipine 10 mg tablet 10 mg PO BEDTIME losartan 100 mg tablet 100 mg PO DAILY budesonide-formoterol [Symbicort] 80-4.5 mcg/actuation HFA aerosol inhaler 2 puff inhalation BID isosorbide mononitrate 60 mg tablet extended release 24 hr 60 mg PO QAM
[2023-08-10 17:32] VITALS: BP 138/85; PULSE 78; RESP 18; O2SAT 92
[2023-08-10 17:54] LABS: MANUAL DIFF FLAG NO
[2023-08-10 17:56] LABS: Basophils Percent Auto 0.3 % (0-2); Eosinophils Absolute Auto 0.3 X10*3/uL (0.0-0.4); Eosinophils Percent Auto 2.7 % (0-4); Hematocrit 43.7 % (42.0-52.0); Hemoglobin 13.6 g/dl (14.0-18.0); Imm Gran Abs Auto 0.03 X10*3/uL (0.00-0.03); Imm Gran Pct Auto 0.3 % (0.0-0.4); Lymphocytes Absolute Auto 0.9 X10*3/uL (1.2-4.9); Lymphocytes Percent Auto 8.1 % (20-40); Mean Corpuscular HGB Conc 31.1 g/dl (31.0-36.0); Mean Corpuscular Volume 96.3 fL (80.0-98.0); Mean Platelet Volume 9.5 fL (9.4-12.4); Monocytes Absolute Auto 0.8 X10*3/uL (0.1-1.2); Monocytes Percent Auto 7.5 % (2-11); Neutrophils Absolute Auto 8.6 x10*3/uL (2.0-8.3); Neutrophils Percent Auto 81.1 % (45-73); Platelet Count 149 X10*3/uL (160-400); Red Blood Count 4.54 X10*6/uL (4.60-5.80); Red Cell Distribution Width 13.9 % (11.0-16.0); White Blood Count 10.6 X10*3/uL (4.8-10.8)
[2023-08-10 18:04] LABS: Lactic Acid 0.8 mmol/L (0.5-2.0)
[2023-08-10 18:09] LABS: Alanine Aminotransferase 21 U/L (0-40); Albumin Level 4.1 g/dL (3.5-5.0); Alkaline Phosphatase 66 U/L (39-117); Anion Gap 14 (12-20); Aspartate Amino Transferase 16 U/L (5-37); Bilirubin Direct 0.3 mg/dL (0.0-0.5); Bilirubin Total 1.2 mg/dL (0.0-1.0); Blood Urea Nitrogen 17 mg/dL (9-16); Calcium 9.1 mg/dL (8.4-10.2); Carbon Dioxide 32 mmol/L (22-29); Chloride 101 mmol/L (96-108); Creatinine Clr Calc Pharmacy 112.8; Estimated Glomerular Filt Rate > 60; Glucose Random 101 mg/dL (60-115); Lipase 22 U/L (8-78); Potassium 4.5 mmol/L (3.3-5.1); Sodium 142 mmol/L (135-145); Total Protein 7.5 g/dL (6.5-8.0)
[2023-08-10 18:15] LABS: B Type Natriuretic Peptide 14 pg/mL (<100)
[2023-08-10 18:20] LABS: COVID-19 Test Negative (Negative); IDNOW Serial# 9DB6401D
[2023-08-10] MEDS: 0.9 % Sodium Chloride 1,000 ML 999 ML IV (18:48)
[2023-08-10] MEDS: Morphine Sulfate 4 MG/ML CARTRIDGE IVPUSH (18:50)
[2023-08-10] MEDS: iohexoL 350 MG/ML 100 ML INFUS..BTL IV (18:52)
[2023-08-10] MEDS: vancomycin/NS 2,000 MG/500 ML PLAST..BAG 250 MG IV (19:42)
[2023-08-10 20:11] VITALS: BP 140/81; PULSE 83; RESP 22; TEMP 36.9; O2SAT 88
== END 2023-08-10 22:11 | disposition left against medical advice (07) ==
PROVIDERS: Emergency Provider Student in an Organized Health Care Education/Training Program; PCP Family Medicine
DX: L03.116 Cellulitis of left lower limb (principal); J15.8 Pneumonia due to other specified bacteria; R09.02 Hypoxemia; Z11.52 Encounter for screening for COVID-19; J44.9 Chronic obstructive pulmonary disease, unspecified; E66.9 Obesity, unspecified; Z68.42 Body mass index [BMI] 45.0-49.9, adult; Z79.82 Long term (current) use of aspirin
CPT/HCPCS: 71046; 71275; 73590; 73630; 80048; 80076; 83605; 83690; 83880; 85025; 87040; 87077; 87186; 87205; 87635; 93005; 93971; 96361; 96374; 96375; 99284; J0690; J2270; J3370; Q9967

== ENCOUNTER 2023-09-28 10:53 | Outpatient (AMB) | payer MEDICARE, SELFPAY ==
--- NOTE | 2023-09-28 10:57 | MHC.OFFVIS ---
Intake Intake Visit Reasons: OV-s/p bilat TKA-3 month follow up Intake Note: Pt presents to the office today for a s/p bilat TKA The patient reports mild intermittent discomfort in both of his knees. He denies any fevers or chills. He continues with his home exercise program. He has lost over 20 lb over the last 4 weeks after being put on Trulicity. He did have a cortisone injection given into his low back by Dr. Dominguez recently which gave him mild relief. Allergies No Known Allergies [No Known Allergies*] Allergy (Verified 06/23/23 08:26) Medication List - Last Reconciled 09/28/23 by Sandip Barnes MD amlodipine 10 mg PO BEDTIME aspirin (Lindsay Low Dose Aspirin) 81 mg PO DAILY blood sugar diagnostic As directed budesonide-formoterol 80-4.5 mcg/actuation (Symbicort) 2 puffs inhalation BID carvedilol 25 mg PO BID doxycycline monohydrate 100 mg PO BID doxycycline monohydrate 100 mg PO BID dulaglutide (Trulicity) 0.75 mg subcut QWEEK furosemide 40 mg PO QAM gabapentin 600 mg PO BEDTIME gabapentin 300 mg PO BEDTIME hydralazine 50 mg PO BID isosorbide mononitrate ER 60 mg PO QAM loratadine 10 mg PO DAILY losartan 100 mg PO DAILY omeprazole 20 mg PO BEDTIME PFSH Medical History Emphysema lung Hypertension Arthritis GERD (gastroesophageal reflux disease) History of renal cell cancer Hx of bladder cancer On beta maria antonia at home Elevated cholesterol CAD (coronary artery disease) Surgical History History of total right knee replacement Hx of cystoscopy History of total left knee replacement (TKR) Hx of heart artery stent Hx of cystoscopy History of nephrectomy, right History of bladder surgery Social History Are you a primary health care facility administrator to a significant other at home: No Do you presently have visiting nurse or other home services: No Patient Tobacco Use Status: Never used Tobacco Current occupational status: retired Physical Exam Const Other: Well-nourished well-developed very friendly male awake alert and oriented x3 in no acute distress Extrem Other: Bilateral lower extremity examination shows good capillary refill, no skin lesions noted, normal sensation light touch Bilateral knee examination shows that the surgical incisions are well healed, no erythema, full active extension and flexion to 120 degrees, his patellae track well Assessment & Plan Assessment & Plan (1) Bilateral knee pain: Code(s): M25.561 - Pain in right knee; M25.562 - Pain in left knee Plan Mr. Johnson continues to do well after undergoing bilateral total knee replacement surgeries. He will continue with his home exercise program. He does know to take antibiotics before any dental work. He will contact me prior to his annual follow-up appointment should any questions or concerns arise. Feel free to call me at any time should questions regarding his orthopedic management arise. I spent 20 minutes in reviewing the patient's records and imaging studies, seeing the patient and documenting in the medical record. Coding Level of Care Code Est Pt Level 2 (94168) Diagnoses Bilateral knee pain M25.561; M25.562
== END 2023-09-28 11:17 | disposition home or self-care (01) ==
LOC: HO.HOS 10:53
PROVIDERS: PCP Family Medicine; Visit Provider Orthopaedic Surgery
DX: M25.561 Pain in right knee (principal); M25.562 Pain in left knee; Z96.653 Presence of artificial knee joint, bilateral
CPT/HCPCS: 99213

== ENCOUNTER → 2023-09-28 10:53 | Outpatient (BNVA) | payer MEDICARE, SELFPAY | PROVIDERS: PCP Family Medicine; Visit Provider Orthopaedic Surgery | DX: M25.561 Pain in right knee (principal); M25.562 Pain in left knee; Z96.653 Presence of artificial knee joint, bilateral | CPT/HCPCS: 99212 ==

== ENCOUNTER 2023-10-13 08:45 | Outpatient (REF) | payer MEDICARE, SELFPAY | END 2023-10-13 08:46 | disposition home or self-care (01) | LOC: HO.LAB 08:45 | PROVIDERS: PCP Family Medicine; Visit Provider Urology | DX: C67.9 Malignant neoplasm of bladder, unspecified (principal); C79.19 Secondary malignant neoplasm of other urinary organs; Z79.82 Long term (current) use of aspirin | CPT/HCPCS: 52000; 81003; 88112; 99212 ==

== ENCOUNTER 2023-10-13 08:45 | Outpatient (AMB) | payer MEDICARE, SELFPAY ==
--- NOTE | 2023-10-13 08:48 | MHC.OFFVIS ---
Intake Intake Visit Reasons: 4m/cysto Intake Note: Patient is Present for Cystoscopy Urology Med: None Antibiotic Allergy: None Blood Thinner: Aspirin URO- G Disposable Cystoscope lot: [id number] exp: 02/20/2025 Allergies No Known Allergies [No Known Allergies*] Allergy (Verified 10/13/23 08:51) HPI HPI Comments History of Present Illness Details Suleiman is a very pleasant male. He is a patient of Dr. Cuadra. He seen for the following urologic conditions - bladder cancer - hydrocele - lower urinary tract symptoms - penile lichen sclerosis Here for check cystoscopy Urethra almost healed No evidence for recurrent disease Bladder shows no disease Has lost 25 lb after starting Trulicity. Is on slow rise. He knows he has to get down 60 lb. Sade has relatively low HbA1c Urethral recurrent low-grade superficial cancer Initial therapy with resection 04/01 completed urethral mitomycin-C with clamping per protocol Cystoscopy 11/02 NAD Bladder Cancer: High-grade superficial initial diagnosis 2017 with upper tract low-grade transitional cell - 12/29 low-grade on urethra Ongoing surveillance Bladder cancer was initially diagnosed during evaluation for microscopic hematuria - 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 Bladder intervention(s) performed 07/27 Low Grade - along course of ureter 02/25 , TURBT, with Mitomycin C, T1 invades subepthium, Low Grade 06/28 TURBT, gemcitabine instillation , multiple low grade Ta, intermediate risk. - 12/28 TURBT low-grade TA intermediate risk, 12/29 TURBT of urethral tumor low grade Recurrence Risk per [facility] Intermediate Risk. 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 - 12/28 CT urogram no evidence of recurrence Previous intravesical therapy 03/28 , BCG Induction - 6 weeks 07/28 Gemcitabine maintenance 11/29 Gemcitabine, 12/28 6 week reinduction gemcitabine, 07/31 3 week boost gemcitabine Planned treatment - check cystoscopy Upper tract transitional cell carcinoma right side right nephrectomy performed 2018 imaging 03/29 CT urogram normal [facility] Medical History Emphysema lung Hypertension Arthritis GERD (gastroesophageal reflux disease) History of renal cell cancer Hx of bladder cancer On beta maria antonia at home Elevated cholesterol CAD (coronary artery disease) Surgical History History of total right knee replacement Hx of cystoscopy History of total left knee replacement (TKR) Hx of heart artery stent Hx of cystoscopy History of nephrectomy, right History of bladder surgery Social History Are you a primary animal caretaker supervisor to a significant other at home: No Do you presently have visiting nurse or other home services: No Patient Tobacco Use Status: Never used Tobacco Current occupational status: retired Review of Systems Const Denies chills and Denies fever(s) Card Reports no additional complaints and Denies syncope Resp Denies cough GI Denies abdominal pain and Denies heartburn Reports as per HPI and Denies change in libido Neuro Denies syncope Psych Denies change in libido Endo Denies change in libido Physical Exam Const General: cooperative, healthy appearing, comfortable and no acute distress Orientation/consciousness: patient oriented x3 HEENT Face and sinus: Yes normal facial exam Mouth: moist mucous membranes Neck Neck: Yes normal visual inspection, Yes full ROM and Yes trachea midline Chest Chest palpation & inspection: normal inspection of the chest Resp Effort & Inspection: normal respiratory effort, able to speak in complete sentences and no respiratory distress GI Inspection: Yes normal to inspection Back/Spine/Pelvis Cervical Spine: normal cervical lordosis Thoracic/Lumbar Spine: thoracic and lumbar spine normal to inspection Skin General skin exam: no rashes or lesions noted Neuro General: patient oriented x3, gait normal, tone normal and moves all extremities Extrem General: Yes normal to inspection and Yes capillary refill normal Office Procedures Cystoscopy Consent Discussed risk and benefit or proposed procedure with the patient. Information consent for procedure given to the patient. Discussed technical aspects, risks, benefits and alternatives in full. Addressed all of the patient's questions and concerns regarding the procedure. The patient demonstrated knowledge and understanding. They wish to proceed with this procedure. Preparation The patient was prepped in the usual manner. A metal mold dresser was present and in the room. Genitalia was prepped with betadine solution in a sterile manner. Lidocaine Jelly 2% was placed into the urethra and 16Fr flexible Olympus cystoscope was inserted into the meatus after adequate lubrication. Procedure Meatus circumcised Urethra healing anterior and posterior urethra. No evidence of recurrent disease Prostatic Urethra unremarkable Bladder examination with retroflexion of cystoscope Bladder Orifices normal shape and position Bladder Capacity medium Trabeculations grade 2 Cellule Formation - Diverticulum Formation - Mucosal Erythema - Bladder Tumor - 94165-[id number] DISPOSABLE SCOPE URO-G FLEXIBLE SCOPE Procedure code (CPT) selection complete Office Meds lidocaine HCl 2 % mucosal jelly in applicator Performing Provider: Charan Baker MD Performing Location: [facility] Administered by: Analy Beard RN on 10/13/23 09:06 Dose Route Admin Location Dispensed Lot Number Expiration Date [facility] [employer] Production Advisor 10 mL intra-urethral 10 mL nitrofurantoin monohydrate/macrocrystals 100 mg capsule Performing Provider: Charan Baker MD Performing Location: [facility] [place] Administered by: Analy Beard RN on 10/13/23 09:06 Dose Route Admin Location Dispensed Lot Number Expiration Date [employer] Production Advisor 100 mg PO 1 cap naproxen 500 mg tablet Performing Provider: Charan Baker MD Performing Location: [facility] Administered by: Analy Beard RN on 10/13/23 09:06 Dose Route Admin Location Dispensed Lot Number Expiration Date [place] [employer] Advisor 500 mg PO 1 tab Results AMB Urinalysis, Automated UA Leukoctes 0 [place]/uL Last Edit by ROSENDA Cade on 10/13/23 08:59 UA Nitrite Negative Last Edit by ROSENDA Cade on 10/13/23 08:59 UA Urobilinogen 2 mg/dL Last Edit by ROSENDA Cade on 10/13/23 08:59 UA Protein 15 mg/dL Last Edit by ROSENDA Cade on 10/13/23 08:59 UA pH 6.0 Last Edit by ROSENDA Cade on 10/13/23 08:59 UA Blood 0 Robert/uL Last Edit by Kyara Nelson RMA on 10/13/23 08:59 UA Specific [place] 1.030 Last Edit by Kyara Nelson RMA on 10/13/23 08:59 UA Ketone Negative Last Edit by Kyara Nelson, RMA on 10/13/23 08:59 UA Bilirubin 0 mg/dL Last Edit by Kyara Nelson RMA on 10/13/23 08:59 UA Glucose 0 mg/dL Last Edit by Kyara Nelson RMA on 10/13/23 08:59 Results Reviewed Results Reviewed: Laboratory Last Values Urine pH (Auto) 6.0 10/13/23 08:54 Specific [place] (Auto) 1.030 10/13/23 08:54 Urine Protein (Auto) 15 mg/dL 10/13/23 08:54 Glucose (UA)(Auto) 0 mg/dL 10/13/23 08:54 Urine Ketones (Auto) Negative 10/13/23 08:54 Urine Blood (Auto) 0 Robert/uL 10/13/23 08:54 Urine Nitrite (Auto) Negative 10/13/23 08:54 Urine Bilirubin (Auto) 0 mg/dL 10/13/23 08:54 Urine Urobilinogen (Auto) 2 mg/dL 10/13/23 08:54 Leukocyte Esterase (Auto) 0 [place]/uL 10/13/23 08:54 Assessment & Plan Assessment & Plan (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: Comment: Transitional cell carcinoma in the urethra Code(s): C79.19 - Secondary malignant neoplasm of other urinary organs (2) Bladder cancer: Comment: Recurrent low-grade superficial Code(s): C67.9 - Malignant neoplasm of bladder, unspecified Plan Four month follow-up cysto Orders: Orders AMB Urinalysis Automated Today Z13.9 - Encounter for screening, unspecified AMB Cystoscopy Today C67.9 - Malignant neoplasm of bladder, unspecified Urine Cytology Today C67.9 - Malignant neoplasm of bladder, unspecified Patient Instructions: Imaging studies, laboratory and physical exam results were discussed and reviewed in detail. No major barriers to patient understanding were identified. An opportunity to ask questions regarding the treatment plan was provided. All questions were answered. The patient expressed understanding and agreement with the above treatment plan. The patient is aware they should contact our office by phone for worsening of their current condition or the appearance of new urologic symptoms. Compliance is encouraged with any medications and followup testing that is ordered. It is a privilege to participate in the urologic care of your patient. If you have any questions or concerns regarding treatment for the above conditions, or other urologic issues, please do not hesitate to contact me. The office telephone contact is [phone]. This note is constructed using voice recognition software. While every effort has been made to ensure accuracy administrative assistant data entry errors may have been included. 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
== END 2023-10-13 10:01 | disposition home or self-care (01) ==
LOC: HO.HUSH 08:45
PROVIDERS: PCP Family Medicine; Visit Provider Urology
DX: C67.9 Malignant neoplasm of bladder, unspecified (principal); C79.19 Secondary malignant neoplasm of other urinary organs; Z13.9 Encounter for screening, unspecified
CPT/HCPCS: 52000; 99213

== ENCOUNTER 2023-10-21 07:28 | Outpatient (REF) | payer MEDICARE, SELFPAY ==
[2023-10-21 12:13] LABS: Estimated Average Glucose 117 mg/dL; Hemoglobin A1c % 5.7 % (<6.0)
[2023-10-21 12:28] LABS: Alanine Aminotransferase 21 U/L (0-40); Anion Gap 13 (12-20); Aspartate Amino Transferase 16 U/L (5-37); Blood Urea Nitrogen 18 mg/dL (9-16); Carbon Dioxide 33 mmol/L (22-29); Chloride 102 mmol/L (96-108); Cholesterol 224 mg/dL (<200); Estimated Glomerular Filt Rate > 60; Glucose Fasting 102 mg/dL (60-99); HDL Cholesterol 24 mg/dL (>40); LDL Cholesterol Calculated 154 mg/dL (<100); Potassium 4.1 mmol/L (3.3-5.1); Sodium 144 mmol/L (135-145); Triglycerides 232 mg/dL (<150)
== END 2023-10-21 07:29 | disposition home or self-care (01) ==
LOC: HO.HMGCLDS 07:28
PROVIDERS: PCP Family Medicine; Visit Provider Family Medicine
DX: I10 Essential (primary) hypertension (principal); E11.9 Type 2 diabetes mellitus without complications; E78.00 Pure hypercholesterolemia, unspecified; Z79.899 Other long term (current) drug therapy
CPT/HCPCS: 36415; 80051; 80061; 82565; 82947; 83036; 84450; 84460; 84520

== ENCOUNTER 2024-02-16 07:57 | Outpatient (REF) | payer MEDICARE, SELFPAY | END 2024-02-16 07:58 | disposition home or self-care (01) | LOC: HO.HOSX 07:57 | PROVIDERS: Visit Provider Orthopaedic Surgery | DX: Z13.89 Encounter for screening for other disorder (principal) ==

== ENCOUNTER 2024-02-17 08:47 | Outpatient (AMB) | payer MEDICARE, SELFPAY ==
--- NOTE | 2024-02-17 08:53 | MHC.OFFVIS ---
Intake Visit Reasons: cysto Intake Note: Patient is Present for Cystoscopy Urology Med: None Antibiotic Allergy: None Blood Thinner: Aspirin URO- G Disposable Cystoscope lot:[id number] exp: 11/10/2026 Allergies No Known Allergies [No Known Allergies*] Allergy (Verified 02/17/24 08:55) HPI Comments Details: Suleiman is a very pleasant male. He is a patient of Dr. Cuadra. He seen for the following urologic conditions - bladder cancer - hydrocele - lower urinary tract symptoms - penile lichen sclerosis Here for check cystoscopy Urethra healed No evidence for recurrent disease Bladder shows no disease Has lost 25 lb after starting Trulicity. Is on slow rise. He knows he has to get down 60 lb. Sade has relatively low HbA1c Discussed switching to Ozempic Urethral recurrent low-grade superficial cancer Initial therapy with resection 04/01 completed urethral mitomycin-C with clamping per protocol Cystoscopy 11/02 NAD Bladder Cancer: High-grade superficial initial diagnosis 2017 with upper tract low-grade transitional cell - 12/29 low-grade on urethra Ongoing surveillance Bladder cancer was initially diagnosed during evaluation for microscopic hematuria - 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 Bladder intervention(s) performed 07/27 Low Grade - along course of ureter 02/25 , TURBT, with Mitomycin C, T1 invades subepthium, Low Grade 06/28 TURBT, gemcitabine instillation , multiple low grade Ta, intermediate risk. - 12/28 TURBT low-grade TA intermediate risk, 12/29 TURBT of urethral tumor low grade, 01/30 urethral tumor urothelial low-grade Recurrence Risk per EORTC Intermediate Risk. 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 - 12/28 CT urogram no evidence of recurrence Previous intravesical therapy 03/28 , BCG Induction - 6 weeks 07/28 Gemcitabine maintenance 11/29 Gemcitabine, 12/28 6 week reinduction gemcitabine, 07/31 3 week boost gemcitabine, 01/30 urethral mitomycin Planned treatment - check cystoscopy Upper tract transitional cell carcinoma right side right nephrectomy performed 2018 imaging 03/29 CT urogram normal [facility] Medical History Emphysema lung Hypertension Arthritis GERD (gastroesophageal reflux disease) History of renal cell cancer Hx of bladder cancer On beta maria antonia at home Elevated cholesterol CAD (coronary artery disease) Surgical History History of total right knee replacement Hx of cystoscopy History of total left knee replacement (TKR) Hx of heart artery stent Hx of cystoscopy History of nephrectomy, right History of bladder surgery Social History Are you a primary healthcare technician to a significant other at home: No Do you presently have visiting nurse or other home services: No Patient Tobacco Use Status: Never used Tobacco Current occupational status: retired Review of Systems Const Denies chills and Denies fever(s) Card Reports no additional complaints and Denies syncope Resp Denies cough GI Denies abdominal pain and Denies heartburn Reports as per HPI and Denies change in libido Neuro Denies syncope Psych Denies change in libido Endo Denies change in libido Physical Exam Const General: cooperative, healthy appearing, comfortable and no acute distress Orientation/consciousness: patient oriented x3 HEENT Face and sinus: Yes normal facial exam Mouth: moist mucous membranes Neck Neck: Yes normal visual inspection, Yes full ROM and Yes trachea midline Chest Chest palpation & inspection: normal inspection of the chest Resp Effort & Inspection: normal respiratory effort, able to speak in complete sentences and no respiratory distress GI Inspection: Yes normal to inspection Back/Spine/Pelvis Cervical Spine: normal cervical lordosis Thoracic/Lumbar Spine: thoracic and lumbar spine normal to inspection Skin General skin exam: no rashes or lesions noted Neuro General: patient oriented x3, gait normal, tone normal and moves all extremities Extrem General: Yes normal to inspection and Yes capillary refill normal Office Procedures Cystoscopy Consent Discussed risk and benefit or proposed procedure with the patient. Information consent for procedure given to the patient. Discussed technical aspects, risks, benefits and alternatives in full. Addressed all of the patient's questions and concerns regarding the procedure. The patient demonstrated knowledge and understanding. They wish to proceed with this procedure. Preparation The patient was prepped in the usual manner. A stitch cleaner was present and in the room. Genitalia was prepped with betadine solution in a sterile manner. Lidocaine Jelly 2% was placed into the urethra and 16Fr flexible Olympus cystoscope was inserted into the meatus after adequate lubrication. Procedure Cystoscopy performed using a disposable Urovue digital 16 Yoruba cystoscope. Meatus circumcised Urethra anterior and posterior urethra healed Prostatic Urethra TUR P defect Bladder examination with retroflexion of cystoscope Bladder Orifices normal shape and position Bladder Capacity normal Trabeculations grade 1 Cellule Formation - Diverticulum Formation - Mucosal Erythema - Bladder Tumor - [id number] DISPOSABLE SCOPE URO-G FLEXIBLE SCOPE Procedure code (CPT) selection complete Office Meds lidocaine HCl 2 % mucosal jelly in applicator Performing Provider: Charan Baker MD Performing Location: [facility] Administered by: Analy Beard RN on 02/17/24 09:07 Dose Route Admin Location Dispensed Lot Number Expiration Date NDC Scale Clerk 10 mL intra-urethral 10 mL nitrofurantoin monohydrate/macrocrystals 100 mg capsule Performing Provider: Charan Baker MD Performing Location: [facility] Administered by: Analy Beard RN on 02/17/24 09:07 Dose Route Admin Location Dispensed Lot Number Expiration Date NDC Scale Clerk 100 mg PO 1 cap naproxen 500 mg tablet Performing Provider: Charan Baker MD Performing Location: [facility] Administered by: Analy Beard RN on 02/17/24 09:07 Dose Route Admin Location Dispensed Lot Number Expiration Date NDC Scale Clerk 500 mg PO 1 tab Results AMB Urinalysis, Automated UA Leukoctes 0 [place]/uL Last Edit by ROSENDA Cade on 02/17/24 09:08 UA Nitrite Negative Last Edit by ROSENDA Cade on 02/17/24 09:08 UA Urobilinogen 1 mg/dL Last Edit by ROSENDA Cade on 02/17/24 09:08 UA Protein 15 mg/dL Last Edit by ROSENDA Cade on 02/17/24 09:08 UA pH 7.0 Last Edit by ROSENDA Cade on 02/17/24 09:08 UA Blood 0 Robert/uL Last Edit by ROSENDA Cade on 02/17/24 09:08 UA Specific [place] 1.010 Last Edit by OLIVIA CadeA on 02/17/24 09:08 UA Ketone Negative Last Edit by ROSENDA Cade on 02/17/24 09:08 UA Bilirubin 0 mg/dL Last Edit by OLIVIA CadeA on 02/17/24 09:08 UA Glucose 0 mg/dL Last Edit by ROSENDA Cade on 02/17/24 09:08 Results Reviewed Results Reviewed: Laboratory Last Values Urine pH (Auto) 7.0 02/17/24 08:56 Specific [place] (Auto) 1.010 02/17/24 08:56 Urine Protein (Auto) 15 mg/dL 02/17/24 08:56 Glucose (UA)(Auto) 0 mg/dL 02/17/24 08:56 Urine Ketones (Auto) Negative 02/17/24 08:56 Urine Blood (Auto) 0 Robert/uL 02/17/24 08:56 Urine Nitrite (Auto) Negative 02/17/24 08:56 Urine Bilirubin (Auto) 0 mg/dL 02/17/24 08:56 Urine Urobilinogen (Auto) 1 mg/dL 02/17/24 08:56 Leukocyte Esterase (Auto) 0 [place]/uL 02/17/24 08:56 Assessment & Plan Assessment & Plan (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: Comment: Transitional cell carcinoma in the urethra Code(s): C79.19 - Secondary malignant neoplasm of other urinary organs Category: Medical (2) Bladder cancer: Comment: Recurrent low-grade superficial Code(s): C67.9 - Malignant neoplasm of bladder, unspecified Category: Medical Plan Six-month follow-up cystoscopy Orders: Orders AMB Urinalysis Automated Today Z13.9 - Encounter for screening, unspecified AMB Cystoscopy Today C67.9 - Malignant neoplasm of bladder, unspecified FISH Bladder Cancer Today C67.9 - Malignant neoplasm of bladder, unspecified Patient Instructions: Imaging studies, laboratory and physical exam results were discussed and reviewed in detail. No major barriers to patient understanding were identified. An opportunity to ask questions regarding the treatment plan was provided. All questions were answered. The patient expressed understanding and agreement with the above treatment plan. The patient is aware they should contact our office by phone for worsening of their current condition or the appearance of new urologic symptoms. Compliance is encouraged with any medications and followup testing that is ordered. It is a privilege to participate in the urologic care of your patient. If you have any questions or concerns regarding treatment for the above conditions, or other urologic issues, please do not hesitate to contact me. The office telephone contact is [phone]. This note is constructed using voice recognition software. 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
== END 2024-02-17 09:48 | disposition home or self-care (01) ==
PROVIDERS: PCP Family Medicine; Visit Provider Urology
DX: C67.9 Malignant neoplasm of bladder, unspecified (principal); C79.19 Secondary malignant neoplasm of other urinary organs; Z13.9 Encounter for screening, unspecified
CPT/HCPCS: 52000; 99213

== ENCOUNTER 2024-02-17 08:47 | Outpatient (REF) | payer MEDICARE, SELFPAY | END 2024-02-17 08:48 | disposition home or self-care (01) | LOC: HO.LAB 08:47 | PROVIDERS: PCP Family Medicine; Visit Provider Urology | DX: C67.9 Malignant neoplasm of bladder, unspecified (principal); C79.19 Secondary malignant neoplasm of other urinary organs | CPT/HCPCS: 52000; 81003; 88121; 99212 ==

== ENCOUNTER 2024-02-23 08:40 | Outpatient (REF) | payer MEDICARE, SELFPAY ==
--- NOTE | ~2024-02-23 | XR_ITS ---
EXAMINATION: Bilateral knee series CLINICAL INFORMATION: Pain in the right and left knee COMPARISON: Prior radiographs including the left tibia-fibula August 2023 and x-rays of the knees March 2023. TECHNIQUE: 3 views of each knee FINDINGS: Right knee: There is a total knee arthroplasty in place. The components are in the usual position and are unchanged. There is no periprosthetic fracture or surrounding abnormal lucency. There is no effusion. Small oval-shaped ossification measuring 6 cm proximal to the proximal pole patella unchanged perhaps reflecting an old proximal spur. Left knee: There is a total knee arthroplasty in place. The components are in the usual position and are unchanged. There is no periprosthetic fracture or surrounding abnormal lucency. There is no effusion. The surrounding soft tissues are normal. XR/XR knee RT 3V IMPRESSION: RIGHT KNEE: Right total knee arthroplasty without change or complication by x-ray. LEFT KNEE: Left total knee arthroplasty without change or complication by x-ray.
--- NOTE | ~2024-02-23 | XR_ITS ---
EXAMINATION: Bilateral knee series CLINICAL INFORMATION: Pain in the right and left knee COMPARISON: Prior radiographs including the left tibia-fibula August 2023 and x-rays of the knees March 2023. TECHNIQUE: 3 views of each knee FINDINGS: Right knee: There is a total knee arthroplasty in place. The components are in the usual position and are unchanged. There is no periprosthetic fracture or surrounding abnormal lucency. There is no effusion. Small oval-shaped ossification measuring 6 cm proximal to the proximal pole patella unchanged perhaps reflecting an old proximal spur. Left knee: There is a total knee arthroplasty in place. The components are in the usual position and are unchanged. There is no periprosthetic fracture or surrounding abnormal lucency. There is no effusion. The surrounding soft tissues are normal. XR/XR knee LT 3V IMPRESSION: RIGHT KNEE: Right total knee arthroplasty without change or complication by x-ray. LEFT KNEE: Left total knee arthroplasty without change or complication by x-ray.
== END 2024-02-23 08:41 | disposition home or self-care (01) ==
LOC: HO.HOSX 08:40
PROVIDERS: Visit Provider Orthopaedic Surgery
DX: M54.50 Low back pain, unspecified (principal); M79.604 Pain in right leg; M79.605 Pain in left leg; M25.562 Pain in left knee; M25.561 Pain in right knee; Z96.653 Presence of artificial knee joint, bilateral
CPT/HCPCS: 73562; 99212

== ENCOUNTER 2024-02-23 10:20 | Outpatient (AMB) | payer MEDICARE, SELFPAY ==
[2024-02-23 10:30] VITALS: BMI 45.8
--- NOTE | 2024-02-23 10:30 | MHC.OFFVIS ---
Vital Signs 02/23/24 10:30 Height 6 ft Weight 338 lb BMI 45.8 Intake Visit Reasons: OV-s/p bilat TKA 5 month follow up, Low back pain Intake Note: Suleiman is a 73 year old Male who presents for a 5 month follow up s/p bilateral TKA. The patient reports mild intermittent discomfort in both of his knees. Today is most concerned with progressively worsening low back pain which radiates down both of his legs as well as associated left leg numbness. The patient was seen by Dr. Burrows from [facility] recommended some type of procedure. The patient is not sure if he should proceed. He also reports intermittent weakness in his legs. The patient states that he has difficulty walking even short distances because of his back pain. He states that his low back pain is interfering with the quality of his life. Patient reports is Right knee is doing good. He states he is still having some pain and numbness in the Left knee. Allergies No Known Allergies [No Known Allergies*] Allergy (Verified 02/23/24 10:36) Medication List - Last Reconciled 02/23/24 by Sandip Barnes MD amlodipine 10 mg PO BEDTIME aspirin (Lindsay Low Dose Aspirin) 81 mg PO DAILY blood sugar diagnostic As directed budesonide-formoterol 80-4.5 mcg/actuation (Symbicort) 2 puffs inhalation BID carvedilol 25 mg PO BID doxycycline monohydrate 100 mg PO BID doxycycline monohydrate 100 mg PO BID dulaglutide (Trulicity) 0.75 mg subcut QWEEK evolocumab (Repatha SureClick) mg subcut furosemide 40 mg PO QAM gabapentin 600 mg PO BEDTIME gabapentin 300 mg PO BEDTIME hydralazine 50 mg PO BID isosorbide mononitrate ER 60 mg PO QAM loratadine 10 mg PO DAILY losartan 100 mg PO DAILY omeprazole 20 mg PO BEDTIME [facility] Medical History Emphysema lung Hypertension Arthritis GERD (gastroesophageal reflux disease) History of renal cell cancer Hx of bladder cancer On beta maria antonia at home Elevated cholesterol CAD (coronary artery disease) Surgical History History of total right knee replacement Hx of cystoscopy History of total left knee replacement (TKR) Hx of heart artery stent Hx of cystoscopy History of nephrectomy, right History of bladder surgery Social History Are you a primary out of school hours care worker to a significant other at home: No Do you presently have visiting nurse or other home services: No Patient Tobacco Use Status: Never used Tobacco Current occupational status: retired Physical Exam Vital Signs: BMI result Body Mass Index 45.8 Back/Spine/Pelvis Other: Low back examination shows bilateral paraspinal muscle tenderness, pain with range of motion, positive straight leg raise test on the left at 70 degrees Extrem Other: Bilateral knee examination shows that the surgical incisions are well healed, no erythema, full active extension and flexion to 120 degrees, no instability Assessment & Plan Assessment & Plan (1) Low back pain radiating down leg: Code(s): M54.50 - Low back pain, unspecified; M79.606 - Pain in leg, unspecified Category: Medical Plan Mr. Johnson presents with progressively worsening low back pain which radiates into both of his legs most likely due to lumbar stenosis or a disc herniation. The patient is not sure that he wishes to proceed with the procedure recommended by Dr. Burrows. Thus, I will arrange for him to have a consultation in our Neurosurgery Department here at [facility] for further information regarding his treatment options. Will follow up with me after that appointment. Feel free to call me at any time should questions regarding his orthopedic management arise. I spent 22 minutes in reviewing the patient's records and imaging studies, seeing the patient and documenting in the medical record. Orders: Orders XR knee LT 3V 02/16/24 M25.562 - Pain in left knee XR knee RT 3V 02/16/24 M25.561 - Pain in right knee XR knee LT 3V Today M25.562 - Pain in left knee XR knee RT 3V Today M25.561 - Pain in right knee Referrals Neurosurgery Referral M54.50 - Low back pain, unspecified, M79.606 - Pain in leg, unspecified Coding Level of Care Code Est Pt Level 3 (84779) Diagnoses Low back pain radiating down leg M54.50; M79.606
== END 2024-02-23 10:44 | disposition home or self-care (01) ==
PROVIDERS: PCP Family Medicine; Visit Provider Orthopaedic Surgery
DX: M54.50 Low back pain, unspecified (principal); M79.606 Pain in leg, unspecified
CPT/HCPCS: 99213

== ENCOUNTER 2024-02-27 10:09 | Outpatient (REF) | payer MEDICARE, SELFPAY ==
[2024-02-27 13:19] LABS: MANUAL DIFF FLAG NO
[2024-02-27 13:38] LABS: Basophils Percent Auto 0.4 % (0-2); Eosinophils Absolute Auto 0.3 X10*3/uL (0.0-0.4); Eosinophils Percent Auto 4.8 % (0-4); Hematocrit 44.6 % (42.0-52.0); Hemoglobin 14.3 g/dl (14.0-18.0); Imm Gran Abs Auto 0.01 X10*3/uL (0.00-0.03); Imm Gran Pct Auto 0.2 % (0.0-0.4); Lymphocytes Absolute Auto 1.2 X10*3/uL (1.2-4.9); Lymphocytes Percent Auto 21.9 % (20-40); Mean Corpuscular HGB Conc 32.1 g/dl (31.0-36.0); Mean Corpuscular Hemoglobin 30.6 pg (27.0-33.0); Mean Corpuscular Volume 95.3 fL (80.0-98.0); Mean Platelet Volume 10.2 fL (9.4-12.4); Monocytes Absolute Auto 0.5 X10*3/uL (0.1-1.2); Monocytes Percent Auto 8.3 % (2-11); Neutrophils Absolute Auto 3.5 x10*3/uL (2.0-8.3); Neutrophils Percent Auto 64.4 % (45-73); Platelet Count 163 X10*3/uL (160-400); Red Blood Count 4.68 X10*6/uL (4.60-5.80); Red Cell Distribution Width 13.4 % (11.0-16.0); White Blood Count 5.4 X10*3/uL (4.8-10.8)
[2024-02-27 13:43] LABS: Estimated Average Glucose 111 mg/dL; Hemoglobin A1c % 5.5 % (<6.0)
[2024-02-27 14:21] LABS: Alanine Aminotransferase 21 U/L (0-40); Albumin Level 4.1 g/dL (3.5-5.0); Alkaline Phosphatase 78 U/L (39-117); Anion Gap 14 (12-20); Aspartate Amino Transferase 18 U/L (5-37); Bilirubin Total 1.1 mg/dL (0.0-1.0); Blood Urea Nitrogen 19 mg/dL (9-16); Calcium 8.9 mg/dL (8.4-10.2); Carbon Dioxide 29 mmol/L (22-29); Chloride 103 mmol/L (96-108); Cholesterol 118 mg/dL (<200); Estimated Glomerular Filt Rate > 60; Glucose Fasting 93 mg/dL (60-99); HDL Cholesterol 29 mg/dL (>40); LDL Cholesterol Calculated 54 mg/dL (<100); Potassium 4.1 mmol/L (3.3-5.1); Sodium 142 mmol/L (135-145); Total Protein 7.3 g/dL (6.5-8.0); Triglycerides 175 mg/dL (<150)
[2024-02-27 14:35] LABS: Creatinine Urine 111.84 mg/dL
== END 2024-02-27 10:10 | disposition home or self-care (01) ==
LOC: HO.HMGCLDS 10:09
PROVIDERS: PCP Family Medicine; Visit Provider Family Medicine
DX: E11.9 Type 2 diabetes mellitus without complications (principal); E78.00 Pure hypercholesterolemia, unspecified; I10 Essential (primary) hypertension; R53.83 Other fatigue
CPT/HCPCS: 36415; 80053; 80061; 82043; 82570; 83036; 85025

== ENCOUNTER 2024-03-02 09:39 | Outpatient (AMB) | payer MEDICARE, SELFPAY ==
--- NOTE | 2024-03-02 09:42 | HO.SPINEOV ---
Intake Visit Reasons: second opinion Intake Note: Mr. Johnson is here today c/o low back pain/Second opinion. Cutter Machine Required: No Allergies No Known Allergies [No Known Allergies*] Allergy (Verified 03/02/24 09:45) Assessment & Plan Assessment & Plan (1) Low back pain radiating down leg: Code(s): M54.50 - Low back pain, unspecified; M79.606 - Pain in leg, unspecified Category: Medical Plan Dear Dr Barnes, Thank you for referring Mr Johnson to our office today. He is a very nice 73-year-old gentleman who presents for history of 40 years of back pain. It is along his waistline in his lower lumbar area. He occasionally will get pain down his right hamstring. The pain has been an ache for many many years, progressively getting worse. His ability to walk is affected by the back pain. He has slowly started to cut back on the amount of walking he does and activities because of the pain. He is still able to be functional enough around his house and yd work etc.. He will take meloxicam as an anti-inflammatory. He takes gabapentin at night for neuropathy in his feet. He saw Dr Burrows at [facility] who diagnosed him with multilevel disc degeneration and did not feel there was a surgical solution because of the diffuse nature of his disc degeneration. He was seen at the [place] [facility] and underwent numerous rounds of injections but really did not see any significant benefit from those. He is undergone acupuncture, chiropractic, physical therapy etc.. He is seeing us today as a 2nd opinion. PMH: History of hypertension, obesity, GERD, coronary artery disease with 2 stents, the last 1 about 3 years ago. He has had both knees replaced. He had a nephrectomy done secondary to cancer that apparently had developed in his ureter which was extending up toward his kidney. Also has bladder cancer and that is treated with local chemotherapy. He is able to void in general normally if he has a full bladder. He does have some problems with strictures apparently from all of the cystoscopies. As long as he has a full bladder he voids normal. Routine follow-up on the bladder cancer has revealed that it more less is in remission right now. History of COPD, takes Symbicort for that. Denies any problems with blood clots. No issues with previous back surgeries or neck surgeries. Social hx: He has not smoke, drink or use any recreational drugs Medications: Hydralazine, losartan, gabapentin, Symbicort, carvedilol, isosorbide, baby aspirin, Zyrtec, meloxicam, centrum, Lasix Allergies: None Physical exam: 6 ft tall, 310 lb, he has in no acute distress, he is able to stand up on his own independently. He shows localized back pain over the lower lumbar region. He has good strength in all muscles of the lower extremities. Imaging review: The patient has serial MRIs done of his low back at [facility] for his far back as 2020. What this shows is diffuse disc degeneration, worse at L4-5 and L5-S1 where there is broad based disc bulging causing moderate central canal stenosis, more prominent on the right side. This is similar both levels. He has a slight levoscoliosis on standing x-rays. No signs of instability. Impression: 73-year-old male presents for evaluation of a chronic backache that he has had for 40 years has been getting progressively worse. He has in the unfortunate situation where he has diffuse degenerative disc disease throughout his whole lumbar spine, probably worse at L4-5 and L5-S1 where there seemed to be more broad-based disc bulges on the right side. There is some compression of the nerves along the lateral recess but he does not have any radiculopathy pain to report other than some mild hamstring discomfort. The most prominent symptom is the back pain an ache when he stands and walks. His frustration is that it limits his ability to go distances, that does affect his quality of life. However, he remains functional and able to do most things around his house and with his classic cars that are important to him. I explained him that the traditional treatment for low back pain is spinal fusion, but when it is so diffuse like he has it can be very difficult to predict what the outcome of surgery will be in terms of overall improvement. At this point the pain is not debilitating or disabling, so I told him I would not recommend doing anything right now. I agree with Dr. Burrows in the sense that it would be very hard to make promises to him about how he would feel after surgery. He seemed okay with this, and understood the reasoning after showed him all of his imaging. I would like to see him back in 6 months just to re-evaluate how things are going. Thank you for allowing us to care for your patient. The total time spent with this visit with this patient was 45 minutes reviewing history, physical exam, lumbar imaging review, and implementation of treatment plan or further diagnostic testing Mike Manning MD,PhD [facility] Orders: Orders XR lumbar spine 4V min Today M54.50 - Low back pain, unspecified, M79.606 - Pain in leg, unspecified Coding Level of Care Code New Pt Level 4 (74497) Diagnoses Low back pain radiating down leg M54.50; M79.606
== END 2024-03-02 10:39 | disposition home or self-care (01) ==
PROVIDERS: PCP Family Medicine; Referring Provider Orthopaedic Surgery; Visit Provider Physician Assistant
DX: M54.50 Low back pain, unspecified (principal); M79.606 Pain in leg, unspecified
CPT/HCPCS: 99204; 99214

== ENCOUNTER 2024-03-02 09:39 | Outpatient (REF) | payer MEDICARE, SELFPAY ==
--- NOTE | ~2024-03-02 | XR_ITS ---
EXAMINATION: XR LUMBOSACRAL SPINE WITH OBLIQUES CLINICAL INFORMATION: Low back pain unspecified. COMPARISON: Chest of 08/10/2023. Left hip of 08/17/2022. MRI lumbar spine 07/29/2020. TECHNIQUE: AP, lateral neutral, flexion and extension views of the lumbar spine. FINDINGS: Levoscoliosis of the lumbar spine. Advanced degenerative changes in the bilateral sacroiliac joints with narrowing and sclerosis. Facet arthritis in the ntc-lj-yddst lumbar spine. Advanced multilevel lumbar spondylosis with multilevel loss of disc space height. Minimal retrolisthesis of L1 on L2, L2 on L3, and L3 on L4. XR/XR lumbar spine 4V min IMPRESSION: 1. Advanced multilevel lumbar spondylosis with multilevel loss of disc space height. 2. Facet arthritis in the mid to lower lumbar spine.
== END 2024-03-02 09:40 | disposition home or self-care (01) ==
LOC: HO.HOSX 09:39
PROVIDERS: PCP Family Medicine; Visit Provider Physician Assistant
DX: M54.50 Low back pain, unspecified (principal); M79.604 Pain in right leg
CPT/HCPCS: 72110; 99202

== ENCOUNTER 2024-05-09 10:13 | Outpatient (REF) | payer MEDICARE, SELFPAY ==
--- NOTE | ~2024-05-09 | XR_ITS ---
EXAMINATION: XR CHEST CLINICAL INFORMATION: Bronchitis COMPARISON: 08/10/2023 TECHNIQUE: 2 views of the chest were obtained. FINDINGS: No significant abnormality is noted involving the heart, lungs, mediastinum, bony thorax or soft tissues. XR/XR chest 2V IMPRESSION: Unremarkable examination.
== END 2024-05-09 10:14 | disposition home or self-care (01) ==
LOC: HO.XRAY 10:13
PROVIDERS: PCP Family Medicine; Visit Provider Family Medicine
DX: J40 Bronchitis, not specified as acute or chronic (principal)
CPT/HCPCS: 71046

== ENCOUNTER 2024-05-11 09:47 | Outpatient (REF) | payer MEDICARE, SELFPAY ==
--- NOTE | ~2024-05-11 | US_ITS ---
EXAMINATION: US EXTRACRANIAL CAROTID DUPLEX, BILATERAL CLINICAL INFORMATION: PVD. Diabetes. COMPARISON: None available. TECHNIQUE: Real-time ultrasound and Doppler techniques (integrating B-mode 2-D vascular images, Doppler spectral analysis and color-flow Doppler imaging) were utilized to interrogate the extracranial carotid arteries, the vertebral arteries and proximal subclavian arteries bilaterally. The degree of stenosis is determined by criteria similar to NASCET. FINDINGS: Right Side: 1. There is no atherosclerotic plaque seen in the bifurcation/proximal ICA region. 2. The common carotid artery PSV proximally is 79 cm/s and distally 65 cm/s. 3. The proximal internal carotid artery velocities are 59 cm/s systolic and 15 cm/s diastolic. 4. The proximal external carotid artery PSV is 111 cm/s. 5. The vertebral artery shows antegrade flow. 6. The subclavian artery waveforms are normal. Left Side: 1. There is no atherosclerotic plaque seen in the bifurcation/proximal ICA region. 2. The common carotid artery PSV proximally is 108 cm/s and distally 83 cm/s. 3. The proximal internal carotid artery velocities are 57 cm/s systolic and 10 cm/s diastolic. 4. The proximal external carotid artery PSV is 128 cm/s. 5. The vertebral artery shows antegrade flow. 6. The subclavian artery waveforms are normal. US/US carotid duplex BI IMPRESSION: 1. RIGHT: Normal right internal carotid artery without atherosclerotic plaque or hemodynamically significant stenosis. 2. LEFT: Normal left internal carotid artery without atherosclerotic plaque or hemodynamically significant stenosis.
== END 2024-05-11 09:48 | disposition home or self-care (01) ==
LOC: HO.HMGCX 09:47
PROVIDERS: PCP Family Medicine; Visit Provider Family Medicine
DX: I73.9 Peripheral vascular disease, unspecified (principal); E11.42 Type 2 diabetes mellitus with diabetic polyneuropathy; I25.10 Atherosclerotic heart disease of native coronary artery without angina pectoris; R09.89 Other specified symptoms and signs involving the circulatory and respiratory systems
CPT/HCPCS: 93880

== ENCOUNTER 2024-08-13 10:56 | Outpatient (REF) | payer MEDICARE, SELFPAY ==
[2024-08-13 13:35] LABS: MANUAL DIFF FLAG NO
[2024-08-13 13:53] LABS: Basophils Percent Auto 0.6 % (0-2); Eosinophils Absolute Auto 0.3 X10*3/uL (0.0-0.4); Eosinophils Percent Auto 4.7 % (0-4); Hematocrit 43.1 % (42.0-52.0); Hemoglobin 13.6 g/dl (14.0-18.0); Imm Gran Abs Auto 0.02 X10*3/uL (0.00-0.03); Imm Gran Pct Auto 0.3 % (0.0-0.4); Lymphocytes Absolute Auto 1.1 X10*3/uL (1.2-4.9); Lymphocytes Percent Auto 18.3 % (20-40); Mean Corpuscular HGB Conc 31.6 g/dl (31.0-36.0); Mean Corpuscular Volume 94.9 fL (80.0-98.0); Mean Platelet Volume 10.2 fL (9.4-12.4); Monocytes Absolute Auto 0.6 X10*3/uL (0.1-1.2); Monocytes Percent Auto 10.3 % (2-11); Neutrophils Absolute Auto 4.1 x10*3/uL (2.0-8.3); Neutrophils Percent Auto 65.8 % (45-73); Platelet Count 208 X10*3/uL (160-400); Red Blood Count 4.54 X10*6/uL (4.60-5.80); Red Cell Distribution Width 13.3 % (11.0-16.0); White Blood Count 6.2 X10*3/uL (4.8-10.8)
[2024-08-13 14:16] LABS: Alanine Aminotransferase 19 U/L (0-40); Alkaline Phosphatase 170 U/L (39-117); Anion Gap 15 (12-20); Aspartate Amino Transferase 21 U/L (5-37); Bilirubin Total 0.9 mg/dL (0.0-1.0); Blood Urea Nitrogen 19 mg/dL (9-16); Calcium 9.7 mg/dL (8.4-10.2); Carbon Dioxide 28 mmol/L (22-29); Chloride 102 mmol/L (96-108); Estimated Glomerular Filt Rate > 60; Glucose Random 93 mg/dL (60-115); Potassium 4.4 mmol/L (3.3-5.1); Sodium 141 mmol/L (135-145); Total Protein 7.9 g/dL (6.5-8.0)
== END 2024-08-13 10:57 | disposition home or self-care (01) ==
LOC: HO.HMGCLDS 10:56
PROVIDERS: PCP Family Medicine; Visit Provider Family Medicine
DX: I10 Essential (primary) hypertension (principal); R06.02 Shortness of breath; R53.83 Other fatigue
CPT/HCPCS: 36415; 80053; 85025

== ENCOUNTER 2024-08-23 08:44 | Outpatient (AMB) | payer MEDICARE, SELFPAY ==
--- NOTE | 2024-08-23 09:00 | MHC.OFFVIS ---
Intake Visit Reasons: Cystoscopy(Bladder Ca) Intake Note: Patient is present for Cystoscopy Urology Medication:NONE Antibiotic Allergy:NONE Blood Thinner:ASPIRIN Lot:[id number] Exp:08/13/27 Pressurization Mechanic Required: No Allergies No Known Allergies [No Known Allergies*] Allergy (Verified 08/23/24 09:01) HPI Comments Details: Suleiman is a very pleasant male. He is a patient of Dr. Cuadra. He seen for the following urologic conditions - bladder cancer - hydrocele - lower urinary tract symptoms - penile lichen sclerosis Here for check cystoscopy No evidence for recurrent disease Bladder shows no disease Has lost 60 lb since switching over to [employer] Is feeling much happier about things Urethral recurrent low-grade superficial cancer Initial therapy with resection 04/01 completed urethral mitomycin-C with clamping per protocol Cystoscopy 11/02 NAD Bladder Cancer: High-grade superficial initial diagnosis 2017 with upper tract low-grade transitional cell - 12/29 low-grade on urethra Ongoing surveillance Bladder cancer was initially diagnosed during evaluation for microscopic hematuria - 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 Bladder intervention(s) performed 07/27 Low Grade - along course of ureter 02/25 , TURBT, with Mitomycin C, T1 invades subepthium, Low Grade 06/28 TURBT, gemcitabine instillation , multiple low grade Ta, intermediate risk. - 12/28 TURBT low-grade TA intermediate risk, 12/29 TURBT of urethral tumor low grade, 01/30 urethral tumor urothelial low-grade Recurrence Risk per EORTC Intermediate Risk. 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 - 12/28 CT urogram no evidence of recurrence Previous intravesical therapy 03/28 , BCG Induction - 6 weeks 07/28 Gemcitabine maintenance 11/29 Gemcitabine, 12/28 6 week reinduction gemcitabine, 10/22 3 week boost gemcitabine, 01/30 urethral mitomycin Planned treatment - check cystoscopy Upper tract transitional cell carcinoma right side right nephrectomy performed 2018 imaging 03/29 CT urogram normal [facility] Medical History Emphysema lung Hypertension Arthritis GERD (gastroesophageal reflux disease) History of renal cell cancer Hx of bladder cancer On beta maria antonia at home Elevated cholesterol CAD (coronary artery disease) Surgical History History of total right knee replacement Hx of cystoscopy History of total left knee replacement (TKR) Hx of heart artery stent Hx of cystoscopy History of nephrectomy, right History of bladder surgery Social History Are you a primary home care chaplain to a significant other at home: No Do you presently have visiting nurse or other home services: No Patient Tobacco Use Status: Never used Tobacco Current occupational status: retired Review of Systems Const Denies chills and Denies fever(s) Card Reports no additional complaints and Denies syncope Resp Denies cough GI Denies abdominal pain and Denies heartburn Reports as per HPI and Denies change in libido Neuro Denies syncope Psych Denies change in libido Endo Denies change in libido Physical Exam Const General: cooperative, healthy appearing, comfortable and no acute distress Orientation/consciousness: patient oriented x3 HEENT Face and sinus: Yes normal facial exam Mouth: moist mucous membranes Neck Neck: Yes normal visual inspection, Yes full ROM and Yes trachea midline Chest Chest palpation & inspection: normal inspection of the chest Resp Effort & Inspection: normal respiratory effort, able to speak in complete sentences and no respiratory distress GI Inspection: Yes normal to inspection Back/Spine/Pelvis Cervical Spine: normal cervical lordosis Thoracic/Lumbar Spine: thoracic and lumbar spine normal to inspection Skin General skin exam: no rashes or lesions noted Neuro General: patient oriented x3, gait normal, tone normal and moves all extremities Extrem General: Yes normal to inspection and Yes capillary refill normal Office Procedures Cystoscopy Consent Discussed risk and benefit or proposed procedure with the patient. Information consent for procedure given to the patient. Discussed technical aspects, risks, benefits and alternatives in full. Addressed all of the patient's questions and concerns regarding the procedure. The patient demonstrated knowledge and understanding. They wish to proceed with this procedure. Preparation The patient was prepped in the usual manner. A protohistorian was present and in the room. Genitalia was prepped with betadine solution in a sterile manner. Lidocaine Jelly 2% was placed into the urethra and 16Fr flexible Olympus cystoscope was inserted into the meatus after adequate lubrication. Procedure Cystoscopy performed using a disposable Urovue digital 16 Peruvian cystoscope. Meatus circumcised Urethra anterior and posterior urethra normal Prostatic Urethra unremarkable Bladder examination with retroflexion of cystoscope Bladder Orifices normal shape and position Bladder Capacity median Trabeculations grade 1 Cellule Formation no Diverticulum Formation none Mucosal Erythema normal Bladder Tumor none DISPOSABLE SCOPE URO-G FLEXIBLE SCOPE Procedure code (CPT) selection complete Office Meds lidocaine HCl 2 % mucosal jelly in applicator Performing Provider: Charan Baker MD Performing Location: [facility] [place] [facility] Administered by: Charan Baker MD on 08/23/24 14:23 Dose Route Admin Location Dispensed Lot Number Expiration Date [facility] Carton Forming Machine Adjuster 10 mL intra-urethral 10 mL Results AMB Urinalysis, Automated UA Leukoctes 0 [place]/uL Last Edit by TITA Peterson on 08/23/24 09:35 UA Nitrite Negative Last Edit by TITA Peterson on 08/23/24 09:35 UA Urobilinogen 1 mg/dL Last Edit by TITA Peterson on 08/23/24 09:35 UA Protein 0 mg/dL Last Edit by TITA Peterson on 08/23/24 09:35 UA pH 5.5 Last Edit by TITA Peterson on 08/23/24 09:35 UA Blood 0 Robert/uL Last Edit by TITA Peterson on 08/23/24 09:35 UA Specific [place] 1.020 Last Edit by TITA Peterson on 08/23/24 09:35 UA Ketone Negative Last Edit by TITA Peterson on 08/23/24 09:35 UA Bilirubin 0 mg/dL Last Edit by TITA Peterson on 08/23/24 09:35 UA Glucose 0 mg/dL Last Edit by TITA Peterson on 08/23/24 09:35 Results Reviewed Results Reviewed: Laboratory Last Values Urine pH (Auto) 5.5 08/23/24 09:35 Specific [place] (Auto) 1.020 08/23/24 09:35 Urine Protein (Auto) 0 mg/dL 08/23/24 09:35 Glucose (UA)(Auto) 0 mg/dL 08/23/24 09:35 Urine Ketones (Auto) Negative 08/23/24 09:35 Urine Blood (Auto) 0 Robert/uL 08/23/24 09:35 Urine Nitrite (Auto) Negative 08/23/24 09:35 Urine Bilirubin (Auto) 0 mg/dL 08/23/24 09:35 Urine Urobilinogen (Auto) 1 mg/dL 08/23/24 09:35 Leukocyte Esterase (Auto) 0 [place]/uL 08/23/24 09:35 Assessment & Plan Assessment & Plan (1) Bladder cancer: Comment: Recurrent low-grade superficial Code(s): C67.9 - Malignant neoplasm of bladder, unspecified Category: Medical Plan Six-month follow-up check cysto Orders: Orders AMB Urinalysis Automated Today Z13.9 - Encounter for screening, unspecified AMB Cystoscopy Today C66.9 - Malignant neoplasm of unspecified ureter Medications: New lidocaine HCl 2% 10 mL intra-urethral ONCE 10 mL 0RF C66.9 - Malignant neoplasm of unspecified ureter Patient Instructions: Imaging studies, laboratory and physical exam results were discussed and reviewed in detail. No major barriers to patient understanding were identified. An opportunity to ask questions regarding the treatment plan was provided. All questions were answered. The patient expressed understanding and agreement with the above treatment plan. The patient is aware they should contact our office by phone for worsening of their current condition or the appearance of new urologic symptoms. Compliance is encouraged with any medications and followup testing that is ordered. It is a privilege to participate in the urologic care of your patient. If you have any questions or concerns regarding treatment for the above conditions, or other urologic issues, please do not hesitate to contact me. The office telephone contact is [phone]. This note is constructed using voice recognition software. While every effort has been made to ensure accuracy coffee shop manager errors may have been included. Yours sincerely, Dr Charan Baker MD, [facility] - Urology Providers of Expert, Compassionate Care for the Genitourinary System Coding Level of Care Code Est Pt Level 3 (92024) Diagnoses Bladder cancer C67.9
== END 2024-08-23 09:36 | disposition home or self-care (01) ==
PROVIDERS: PCP Family Medicine; Visit Provider Urology
DX: C67.9 Malignant neoplasm of bladder, unspecified (principal); Z13.9 Encounter for screening, unspecified
CPT/HCPCS: 52000; 99213

== ENCOUNTER → 2024-08-23 08:44 | Outpatient (BNVA) | payer MEDICARE, SELFPAY | PROVIDERS: PCP Family Medicine; Visit Provider Urology | DX: C67.9 Malignant neoplasm of bladder, unspecified (principal); C66.9 Malignant neoplasm of unspecified ureter | CPT/HCPCS: 52000; 81003; 99212 ==

== ENCOUNTER → 2024-11-14 09:13 | Outpatient (BNVA) | payer MEDICARE, SELFPAY | PROVIDERS: PCP Family Medicine; Visit Provider Urology | DX: C67.9 Malignant neoplasm of bladder, unspecified (principal); C66.9 Malignant neoplasm of unspecified ureter; C79.19 Secondary malignant neoplasm of other urinary organs | CPT/HCPCS: 99212 ==

== ENCOUNTER 2024-12-04 10:29 | Outpatient (AMB) | payer MEDICARE, SELFPAY ==
--- NOTE | 2024-12-04 10:29 | A.OFFVIS_ITS ---
Intake Visit Reasons: 3W Follow Up([facility] 2nd Opinion) Intake Note: Patient is present for 3W F/U ([facility] 2ND OPINION) Urology Medication:NONE Antibiotic Allergy:NONE Blood Thinner:ASPIRIN Artificial Intelligence Specialist Required: No Allergies No Known Allergies [No Known Allergies*] Allergy (Verified 12/04/24 10:30) HPI Comments Details: Suleiman is a very pleasant male. He is a patient of Dr. Cuadra. He seen for the following urologic conditions - bladder cancer - hydrocele - lower urinary tract symptoms - penile lichen sclerosis Completed oncology assessment including 2nd opinion at [facility] - saw Dr. Robledo Concurring recommendation to continue with EV-Pembro - Phase 3 - data presentation late 2022 showed doubling of progression-free survival to 12.5 months median and significantly prolonged overall survival Additional recommendation to try NGS genetics on prior biopsy Discussed germline testing at next appointment 11/03 imaging found to have metastatic disease in his lungs, spine and retroperitoneal lymph node enlargement Biopsy performed on right groin lymph node 10/22/24 Pathology reported out as metastatic squamous disease likely of urothelial origin Reviewed prior pathology which had shown low-grade upper tract urothelial transitional disease resected in early 2018 Recurrent low-grade superficial disease within his bladder with resections in early 2020, 2021 and 2022 Imaging from 05/02 and 09/01 showing no evidence of metastatic disease or nodules within his lungs Cytology and genetic FISH 03/02 no evidence of disease Urethral recurrent low-grade superficial cancer Initial therapy with resection 04/01 completed urethral mitomycin-C with clamping per protocol Cystoscopy 11/02 NAD Bladder Cancer: High-grade superficial initial diagnosis 2017 with upper tract low-grade transitional cell - 12/29 low-grade on urethra Ongoing surveillance Bladder cancer was initially diagnosed during evaluation for microscopic hematuria - 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 Bladder intervention(s) performed 07/27 Low Grade - along course of ureter 02/25 , TURBT, with Mitomycin C, T1 invades subepthium, Low Grade 06/28 TURBT, gemcitabine instillation , multiple low grade Ta, intermediate risk. - 12/28 TURBT low-grade TA intermediate risk, 12/29 TURBT of urethral tumor low grade, 01/30 urethral tumor urothelial low-grade Recurrence Risk per EORTC Intermediate Risk. 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 - 12/28 CT urogram no evidence of recurrence Previous intravesical therapy 03/28 , BCG Induction - 6 weeks 07/28 Gemcitabine maintenance 11/29 Gemcitabine, 12/28 6 week reinduction gemcitabine, 07/31 3 week boost gemcitabine, 01/30 urethral mitomycin Planned treatment - check cystoscopy Upper tract transitional cell carcinoma right side right nephrectomy performed 2018 imaging 03/29 CT urogram normal PFSH Medical History Emphysema lung Hypertension Arthritis GERD (gastroesophageal reflux disease) History of renal cell cancer Hx of bladder cancer On beta maria antonia at home Elevated cholesterol CAD (coronary artery disease) Surgical History History of total right knee replacement Hx of cystoscopy History of total left knee replacement (TKR) Hx of heart artery stent Hx of cystoscopy History of nephrectomy, right History of bladder surgery Social History Are you a primary animal care specialist to a significant other at home: No Do you presently have visiting nurse or other home services: No Patient Tobacco Use Status: Never used Tobacco Current occupational status: retired Review of Systems Const All systems reviewed & are unremarkable except as noted in HPI and below Reports no additional complaints Resp Reports no additional complaints GI Reports no additional complaints Reports as per HPI Musc Reports no additional complaints Physical Exam Telemedicine evaluation Appropriate responses Regular breathing rate and rhythm HEENT Head: Yes normal to inspection Ears: hearing grossly normal bilaterally Eyes General: appearance normal, both eyes and all related structures Neck Neck: Yes normal visual inspection Chest Chest palpation & inspection: normal inspection of the chest Resp Effort & Inspection: normal respiratory effort and able to speak in complete sentences Telehealth Telehealth Location of provider rendering services: practice address Location of patient: address on file Patient Identification confirmed using: Name, : Yes Telehealth method: voice only Patient verbally consented to treatment: Yes Patient verbally consented to billing insurance company: Yes Patient informed of any privacy concerns related to visit: Yes Assessment & Plan Assessment & Plan (1) Bladder cancer: Comment: Recurrent low-grade superficial Code(s): C67.9 - Malignant neoplasm of bladder, unspecified Category: Medical (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 While every effort has been made to ensure accuracy lawn and tree service spray supervisor errors may have been included. Imaging studies, laboratory and physical exam results were discussed and reviewed in detail. No major barriers to patient understanding were identified. An opportunity to ask questions regarding the treatment plan was provided. All questions were answered. The patient expressed understanding and agreement with the above treatment plan. The patient is aware they should contact our office by phone for worsening of their current condition or the appearance of new urologic symptoms. Compliance is encouraged with any medications and followup testing that is ordered. It is a privilege to participate in the urologic care of your patient. If you have any questions or concerns regarding treatment for the above conditions, or other urologic issues, please do not hesitate to contact me. The office telephone contact is [phone]. 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
--- OUTSIDE RECORDS SUMMARY | 2024-12-04 12:26 | XMS_ITS | Data Portability ---
Author Organization [place] [facility] [place] Address [address] [place] [address] Care Team Providers Care Hemotherapist Name Role Phone VICENTE BOSE Primary Care Provider [phone] Assessment Encounter Date Assessment Date Assessment LastModified by Organization Details LastModified Time 01/20/2023 01/20/2023 Pleasant 72-year-old male with bilateral knee replacements by Dr. Barnes left being May 04, 2021 and right knee replacement February 08, 2021. We discussed the numbness in his left knee which may correlate to his back symptoms for which she believes is the case. He is under management with a back specialist as well as pain management. He does not reveal any neurological deficits. He will transition orthopedic care to Dr. Hoffmann. Follow-up visit in 5 years. However he will stay on antibiotic prophylaxis for a total of 2 years from the point of his last knee replacement surgery which we will give refills on an as-needed basis. He states he has plenty at this time. Patient agrees with the above-noted plan if he changes his mind regarding care we will supply him with his chart to go to a provider of his choice. Indirect care and treatment in conjunction with Dr. Hoffmann Additional treatment plan discussed with the patient in detail included the following; - Provider focused nonsteroidal anti-inflammator y regimen (discussed were the pros, cons, benefits and risks as well as any black box warnings) - Analgesic pain medication for pain suppression (discussed were the pros, cons, benefits and risks as well as any black box warnings) - The use of topical pain relieving medication were discussed - The use of ice to decrease inflammation and pain - The use of assistive ambulatory devices for ambulation and fall prevention - Formal specific guided physical therapy program I reviewed my findings at length with the patient today. ? ? ?We discussed the nature and etiology of this problem along with current treatment options. We discussed the expected course and outcomes and what to expect. We also discussed risks and benefits. ? ? ?All of their questions were answered today, and there was exhibited understanding and comprehension of all that was discussed. 10 minutes were spent reviewing previous imaging and charting. ? ? ?10 minutes were spent obtaining patient history. ? ? ?5 minutes were spent on physical exam. ? ? ?5? ? ?minutes were spent explaining diagnosis and assessment. Today's documentation was made using voice recognition software. This note may contain grammatical errors secondary to the software. [email or web address] Not available 01/20/2023 10:38:35 Plan of Treatment Reminders Order Date Submit Date Provider Last Modified By Organization Details Last Modified Time Details Appointments None record ed. Lab None record ed. Referral None record ed. Procedures None record ed. Surgeries None record ed. Imaging None record ed. Medication Orders None record ed. Patient TargetsNo targets recorded. Patient InstructionsNo instructions recorded. Reason for Referral None Reported. Problems Name Problem SNOMED Code Status Onset Date Resolution Date Notes Provider Name and Address Organization Details Recorded Time Stiffness of left knee [id number] 2 Active 2022 JENISE WALLCAE PA-C [address], [place], [address] [facility] [place] 10:38:52 Problem Notes None recorded. Procedures Surgical History Date Name Laterality Status Provider Name and Address Organization Details Recorded Time Knee Surgery completed Sigrid Escoto [facility] [place] 01/20/2023 10:07:47 total nephrectomy completed Tangela Escoot [facility] [place] 01/20/2023 10:08:05 Total knee arthroplasty completed Sigrid Escoto [facility] [place] 01/20/2023 10:08:37 Imaging Results None recorded. Procedure Notes None recorded. Medical Equipment None Reported. Allergies No known drug allergies Medications Name Sig Start Date Stop Date Status Note LastModified by Organization Details LastModified Time acetaminophe n 500mg tab TAKE 2 TABLETS BY MOUTH THREE TIMES DAILY active Not Available Not Available Not Available celecoxib 200 mg capsule TAKE 1 CAPSULE BY MOUTH ONCE DAILY active Not Available Not Available No t Available amoxicillin 500 mg capsule TAKE FOUR CAPSULES BY MOUTH ONE HOUR BEFORE APPOINTMENT active Not Available Not Available Not Available furosemide 40 mg tablet TAKE 1 TABLET BY MOUTH ONCE DAILY IN THE MORNING DIRECTED active Not Available Not Available Not Available carvedilol 25 mg tablet TAKE 1 TABLET BY MOUTH TWICE DAILY active Not Available Not Available No t Available gabapentin 600 mg tablet TAKE 1 TABLET BY MOUTH ONCE DAILY AT BEDTIME active Not Available Not Available No t Available isosorbide mononitrate ER 30 mg tablet,exten ded release 24 hr TAKE 1 TABLET BY MOUTH ONCE DAILY IN THE MORNING active Not Available Not Available Not Available amoxicillin 500 mg tablet Take 4 tablets 1 hour prior to dental appointment 2022 active Not Available Not Available Not Avai lable isosorbide mononitrate ER 60 mg tablet,exten ded release 24 hr TAKE 1 TABLET BY MOUTH EVERY MORNING active Not Available Not Available No t Available methocarbamo l 750 mg tablet TAKE 1 TABLET BY MOUTH EVERY 6 HOURS NEEDED FOR MUSCLE SPASM active Not Available Not Available No t Available tamsulosin 0.4 mg capsule TAKE 1 CAPSULE BY MOUTH AT BEDTIME active Not Available Not Available No t Available amlodipine 10 mg tablet TAKE 1 TABLET BY MOUTH ONCE DAILY active Not Available Not Available No t Available gabapentin 300 mg capsule TAKE 1 CAPSULE BY MOUTH AT BEDTIME ALONG WITH THE 600MG CAPSULE FOR A TOTAL DOSE OF 900MG active Not Available Not Available No t Available omeprazole 20 mg capsule,sherrell yed release TAKE 1 CAPSULE BY MOUTH ONCE DAILY active Not Available Not Available No t Available hydralazine 50 mg tablet TAKE 1 TABLET BY MOUTH TWICE DAILY active Not Available Not Available No t Available clobetasol 0.05 % topical ointment APPLY A THIN COAT OF OINTMENT TOPICALLY TO UNDERSIDE OF PENILE GLANS TWICE DAILY FOR 2 WEEKS active Not Available Not Available No t Available warfarin 1 mg tablet TAKE 10 TABLETS BY MOUTH DAILY OR DIRECTED BY PHYSICIAN active Not Available Not Available No t Available losartan 100 mg tablet TAKE 1 TABLET BY MOUTH ONCE DAILY active Not Available Not Available No t Available oxycodone 5 mg tablet TAKE 1 TO 2 TABLETS BY MOUTH EVERY 8 HOURS NEEDED FOR PAIN active Not Available Not Available No t Available enoxaparin 40 mg/0.4 mL subcutaneous syringe INJECT 40 MG SUBCUTANEOU SLY. TAKE DAILY UNTIL INR IS 2 OR GREATER active Not Available Not Available No t Available Symbicort 80 mcg-4.5 mcg/actuatio n HFA aerosol inhaler INHALE 2 PUFFS BY MOUTH TWICE DAILY active Not Available Not Available No t Available Stool Softener-Sti mulant Laxative 8.6 mg-50 mg tablet TAKE 2 TABLETS BY MOUTH IN THE EVENING active Not Available Not Available Not Available Lagevrio 200 mg capsule (EUA) TAKE 4 CAPSULES BY MOUTH TWICE DAILY FOR 5 DAYS active Not Available Not Available No t Available Vitals None Recorded Social History None recorded. Functional Status None recorded. Mental Status None recorded. Family History Nothing Reported. Medical History Condition Response Heart Disease Y Cancer Y Arthritis Y Reflux/GERD Y Past Encounters Encounter ID Performer Location Encounter Start Date Encounter Closed Date Diagnosis/Indication Diagnosis SNOMED-CT Code Diagnosis ICD10 Code Diagnosis Note [id number] MD FABIAN Mcdaniel [facility] [address] [facility] [address] [place] [address] 01/20/2023 09:48:19 01/20/2023 10:33:53 Stiffness of left knee [id number] [address]40 M25.662 Health Concerns Section Related Observation LastModified by Organization Detai ls LastModified Time None Recorded Concern Status LastModified by Organization Details LastModified Time None Recorded Advance Directives Directive None Recorded Payers None recorded. Notes Date Note Type Note Provider Name and Address Organization Details Recorded Time 01/20/2023 text/html This is a pleasa 72-year-old male here for follow-up on his bilateral knee replacements. He underwent a left total knee replacement on May 04, 2021. He underwent a right total knee replacement on February 08, 2022. Patient states he is doing well he does his exercises. He states he does have chronic back problems which she is under pain management which may be affecting his left lower extremity. He states he has numbness surrounding his knee incision which has been ongoing. He denies any changes in bladder or bowel habits or saddle anesthesia. He states he takes his antibiotic prophylaxis as prescribed here for follow-up. JENISE WALLACE PA-C [address] [facility] [address], [place], [address], [place] [facility] [place] 01/20/2023 10:39:32
--- OUTSIDE RECORDS SUMMARY | 2024-12-04 12:26 | XMS_ITS | Clinical Summary ---
Author Organization [facility] Address [address] [place] [address] Care Team Providers Care Police Officer Crime Prevention Name Role Phone Topher Cuadra MD Primary Care Provider [phone] Allergies No known active allergies Medications Medication Sig Dispensed Refills Start Date End Date Status amLODIPine (NORVASC) tablet 10 mg Take 10 mg by mouth daily. 0 12/10/2020 Active carvedilol (COREG) 12.5 MG tablet TAKE 1 TABLET BY MOUTH TWICE DAILY DOSE INCREASE 0 12/14/2020 Active gabapentin (NEURONTIN) 300 MG capsule TAKE 1 CAPSULE BY MOUTH ONCE DAILY AT BEDTIME WITH A 600 MG TABLET FOR TOTAL DAILY DOSE OF 900 MG 0 12/30/2020 Active gabapentin (NEURONTIN) 600 MG tablet Take 600 mg by mouth every night at bedtime. 0 02/17/2021 Active hydrALAZINE (APRESOLINE) 50 MG tablet Take 50 mg by mouth 3 (three) times a day. 0 02/15/2021 Active isosorbide mononitrate (IMDUR) 30 MG 24 hr tablet TAKE 1 TABLET BY MOUTH ONCE DAILY IN THE MORNING 0 12/20/2020 Active losartan (COZAAR) tablet 50 mg Take 50 mg by mouth daily. 0 12/20/2020 Active omeprazole (PriLOSEC) 20 MG capsule Take 20 mg by mouth daily. 0 01/18/2021 Active sulfamethoxazole-tr imethoprim (Bactrim DS) 800-160 MG per tablet Take 1 tablet (160 mg of trimethoprim total) by mouth 2 (two) times a day. 20 tablet 0 06/11/2021 Active atorvastatin (LIPITOR) tablet 40 mg Take 40 mg by mouth. 0 07/20/2019 Active aspirin 81 MG EC tablet Take 81 mg by mouth. 0 Active oxyCODONE (ROXICODONE) 5 MG immediate release tablet 1-2 tabs p.o. every 4 to 6 hours as needed for pain. May fill for lesser quantity 40 tablet 0 02/19/2022 Active EQ Pain Reliever 500 MG tablet Take 1,000 mg by mouth 3 (three) times a day. 0 02/09/2022 Active celecoxib (CeleBREX) 200 MG capsule Take 200 mg by mouth daily. 0 02/09/2022 Active methocarbamol (ROBAXIN) 750 MG tablet Take 750 mg by mouth every 6 (six) hours as needed. for muscle spasm 0 02/09/2022 Active tamsulosin (FLOMAX) 0.4 MG CAPS Take 0.4 mg by mouth every night at bedtime. 0 02/17/2022 Active warfarin (COUMADIN) 1 MG tablet Take 10 tabs daily or as directed by physician 75 tablet 0 02/25/2022 Active losartan (COZAAR) 100 MG tablet Take 100 mg by mouth daily. 0 02/21/2022 Active molnupiravir 200 MG capsule TAKE 4 CAPSULES BY MOUTH TWICE DAILY FOR 5 DAYS 0 03/12/2022 Active oxyCODONE (ROXICODONE) 5 MG immediate release tablet Take 1-2 tabs every 8 hours as needed for pain 40 tablet 0 04/02/2022 Active Social History Tobacco Use Types Packs/Day Years Used Date Smoking Tobacco: Never Smokeless Tobacco: Never Alcohol Use Standard Drinks/Week Comments Yes 5 (1 standard drink = 0.6 oz pur e alcohol) Sex and Gender Information Value Date Recorded Sex Assigned at Not on file Gender Identity Not on file Sexual Orientation Not on file Job Start Date Occupation Industry Not on file Not on file Not on file Last Filed Vital Signs Vital Sign Reading Time Taken Comments Blood Pressure - - Pulse - - Temperature - - Respiratory Rate - - Oxygen Saturation - - Inhaled Oxygen Concentration - - Weight 131.5 kg (290 lb) 08/17/2022 8:36 AM EST Height 182.9 cm (6') 08/17/2022 8:36 AM EST Body Mass Index 39.33 08/17/2022 8:36 AM EST Plan of Treatment Health Maintenance Due Date Last Done Comments Hepatitis C Screening 1950 COVID-19 Vaccine (#1) 03/17/1951 Depression Screening 1964 BMI Counseling 1970 Preventative Health Evaluation 1970 DTap / Tdap / Td (1 - Tdap) 1971 Colon Cancer Screening (Colonoscopy) 1997 Shingrix-Zoster Vaccine (1 of 2) 2002 Fall Risk Assessment 2017 Pneumococcal Vaccine (2 of 2 - PCV) 2017 01/17/2015 Influenza Vaccine (#1) 2024 01/17/2015 RSV Adult > 60+ Yrs or Pregn ant (1 - 1-dose 75+ series) 2027 Hepatitis B Vaccines Aged Out No long er eligible based on patient's age to complete this topic RSV Ped < 20 months Aged Out No longe r eligible based on patient's age to complete this topic Care Teams Police Officer Crime Prevention Relationship Specialty Start Date End Date Topher Cuadra MD [address] [place] [address] [place] [address] PCP - General Internal Medicine 03/03/21
--- OUTSIDE RECORDS SUMMARY | 2024-12-04 12:26 | XMS_ITS | Clinical Summary ---
Author Organization [facility] Address [address] [place] [address] Phone Care Team Providers Care Undercutter Name Role Phone Topher Cuadra MD Primary Care Provider [phone] Allergies No known active allergies Medications amLODIPine (NORVASC) 10 mg tablet Take 1 tablet (10 mg total) by mouth 1 (one) time each day. 90 tablet 1 08/17/2024 Active aspirin 81 mg EC tablet Take 1 tablet (81 mg total) by mouth 1 (one) time each day. Active Mounjaro 7.5 mg/0.5 mL injection every 7 (seven) days. 07/24/2024 Active Repatha SureClick 140 mg/mL pen injector injection Inject 1 mL (140 mg total) under the skin every 14 (fourteen) days. Active gabapentin (NEURONTIN) 600 mg tablet Take 1 tablet (600 mg total) by mouth at bedtime. With 300mg for total of 900mg 02/17/2021 Active gabapentin (NEURONTIN) 300 mg capsule 1 capsule (300 mg total) at bedtime. With 600mg for total of 900mg Active losartan (COZAAR) 100 mg tablet Take 1 tablet (100 mg total) by mouth 1 (one) time each day. Active amitriptyline (ELAVIL) 25 mg tablet Take 1 tablet (25 mg total) by mouth. at bedtime. 06/19/2024 Active traMADoL (ULTRAM) 50 mg tablet TAKE 1 TO 2 TABLETS BY MOUTH EVERY 8 HOURS NEEDED FOR BACK PAIN 06/29/2024 Active omeprazole (PriLOSEC) [address] capsule Take 1 capsule (20 mg total) by mouth 1 (one) time each day. Active carvediloL (COREG) 12.5 mg tablet Take 1 tablet (12.5 mg total) by mouth 2 (two) times a day with meals. Active isosorbide mononitrate (IMDUR) 30 mg 24 hr tablet Take 1 tablet (30 mg total) by mouth 1 (one) time each day. Do not crush or chew. Active cetirizine (ZyrTEC) 10 mg chewable tablet Chew 1 tablet (10 mg total) 1 (one) time each day. Active multivitamin with minerals tablet Take 1 tablet by mouth 1 (one) time each day. Active furosemide (LASIX) 20 mg tablet Take 1 tablet (20 mg total) by mouth 1 (one) time each day. Active isosorbide mononitrate (IMDUR) 60 mg 24 hr tablet Take 1 tablet by mouth once daily 90 tablet 1 11/28/2024 Active Active Problems Problem Noted Date Diagnosed Date Other emphysema 06/06/2023 Dyspnea on exertion 06/10/2022 Coronary artery disease invo lving [place] coronary artery of [place] heart without angina pectoris 12/03/2021 Assessment & Plan (10/23/2024 4:35 PM EST): Orders: ECG 12 lead Hyperlipidemia 12/03/2021 Obesity 12/03/2021 Primary hypertension 12/03/2021 Encounters Date Type Department Care Team Description 10/23/2024 4:10 PM EST Office Visit [facility] [address] [place] [phone] Jerry Palomo NP Coronary artery disease involving [place] coronary artery of [place] heart without angina pectoris (Primary Dx) 10/15/2024 Telephone [facility] Cardiology [facility] [address] [place] [address] Moriah Valle NP 09/26/2024 Telephone Gastroenterology - [address] [place] [address] Sophia Edouard [place] CANCELLATION from Last 3 Months Surgical History Surgery Date Site/Laterality Comments CYSTOSCOPY 11/19/2021 PROCEDURE: [place] CYSTOURETHROSCOPY BLADDER SURGERY PROCEDURE: HISTORICAL BLADDER SURGERY NEPHRECTOMY Right PROCEDURE: HISTORICAL NEPHRECTOMY OTHER SURGICAL HISTORY PROCEDURE: HISTORY OTHER; COMMENT: Hx of heart artery stent CARDIAC CATHETERIZATION DONE ON 10/18/2022 AT [facility] [place] INDICATIONS:Shortness of breath Medical History Medical History Date Comments GERD (gastroesophageal reflux disease) DX:GERD (gastroesophageal reflux disease) Bladder cancer (CMS/HCC) DX:Blad kristian cancer (HCC) Obesity DX:Obesity Osteoarthritis of right knee DX: Osteoarthritis of right knee Neuropathy DX:Neuropathy Arthritis DX:Arthritis History of renal cell cancer DX: History of renal cell cancer Anemia HTN (hypertension) Chronic GERD Social History Tobacco Use Types Packs/Day Years Used Date Smoking Tobacco: Never Smokeless Tobacco: Never Alcohol Use Standard Drinks/Week Comments Yes 0 (1 standard drink = 0.6 oz pur e alcohol) very rarely Sex and Gender Information Value Date Recorded Sex Assigned at Not on file Legal Sex Male 8:08 AM EST Gender Identity Not on file Sexual Orientation Not on file Obstetrics History Last Filed Vital Signs Vital Sign Reading Time Taken Comments Blood Pressure 122/74 10/23/2024 3:49 PM EST Pulse 72 10/23/2024 3:49 PM EST Temperature - - Respiratory Rate - - Oxygen Saturation 94% 10/23/2024 3:49 PM EST Inhaled Oxygen Concentration - - Weight 127 kg (279 lb) 10/23/2024 3:49 PM EST Height 182.9 cm (6') 09/20/2024 2:00 PM EST Body Mass Index 37.84 09/20/2024 2:00 PM EST Plan of Treatment Upcoming Encounters Date Type Department Care Team (Late st Contact Info) Description 02/11/2025 10:50 AM EDT Office Visit [facility] Cardiology [facility] [address] [place] [id number] Victor M Amaya MD [address] [place] [address],[address] CARDIOLOGY [place], [place] [id number] Health Maintenance Due Date Last Done Comments DTaP,Tdap,and Td Vaccines (1 - Tdap) 1971 RSV Immunization Patients 60+ Years Old (1 - Risk 60-74 years 1-dose series) 2012 Cholesterol Screening (Lipid Panel) 09/17/2022 Colorectal Cancer Screening: Colonoscopy 09/17/2022 Depression Screening 09/17/2022 Falls Risk Assessment 09/17/2022 Hepatitis C Screening 09/17/2022 Social Influencers of Health Screening 09/17/2022 Hypertension/CHF/CAD Annual BMP Blood Test 09/19/2022 Medicare Annual Wellness Visit 03/31/2024 03/31/2023 COVID-19 Vaccine ( season) 2024 08/25/2021, 12/30/2020, 11/24/2020 Zoster Vaccines (2 of 2) 08/14/2024 06/19/2024 Pneumococcal Vaccine: 50+ Years Completed 06/19/2024, 02/23/2018, 01/17/2015 Influenza Vaccine Completed 10/12/2024, , 11/10/2021, Additional history exists HIB Vaccines Aged Out No longer eligi ble based on patient's age to complete this topic HPV Vaccines Aged Out No longer eligi ble based on patient's age to complete this topic Hepatitis A Vaccines Aged Out No long er eligible based on patient's age to complete this topic Hepatitis B Vaccines Aged Out No long er eligible based on patient's age to complete this topic IPV Vaccines Aged Out No longer eligi ble based on patient's age to complete this topic MMR Vaccines Aged Out No longer eligi ble based on patient's age to complete this topic Meningococcal ACWY Vaccine Aged Out N o longer eligible based on patient's age to complete this topic Meningococcal B Vacine Aged Out No lo nger eligible based on patient's age to complete this topic RSV Immunization Patients Under 20 months Aged Out No longer eligible based on patient's age to complete this topic Varicella Vaccines Aged Out No longer eligible based on patient's age to complete this topic Procedures Procedure Name Priority Date/Time Associated Diagnosis Comments ECG 12-LEAD Routine 10/23/2024 3:57 PM EST Coronary artery disease involving [place] coronary artery of [place] heart without angina pectoris from Last 3 Months Results * ECG 12 lead (10/23/2024 3:57 PM EST) Ventricular Rate ECG 72 BPM GEMUSE Atrial Rate 72 BPM GEMUSE P-R Interval 182 ms GEMUSE QRS Duration 144 ms GEMUSE Q-T Interval 434 ms GEMUSE QTc 475 ms GEMUSE P Wave [place] 15 degrees GEMUSE R [place] 15 degrees GEMUSE T [place] 36 degrees GEMUSE ECG Interpretation Normal sinus rhythm Right bundle branch block Abnormal ECG When compared with ECG of 08-FEB-2022 08:01, Right bundle branch block is now Present Confirmed by Franklyn ENGLISH JAMES ([id number]) on 10/24/2024 4:12:50 PM GEMUSE 10/23/2024 3:57 PM EST 10/24/2024 4:12 PM EST us Jerry Palomo CRAP SHOOTER ECG ORDERABLES Final Resul t GEMUSE from Last 3 Months Insurance MEDICARE [facility] Advance Directives Documents on File Type Date Recorded Patient Master Cook Expl anation Health Care Decision (hx) 02/10/2022 AD WEST DIRECTIVE Health Care Decision (hx) 02/10/2022 AD WEST DIRECTIVE Health Care Decision (hx) 02/10/2022 AD WEST DIRECTIVE Health Care Decision (hx) 02/10/2022 AD WEST DIRECTIVE Health Care Decision (hx) 02/10/2022 AD WEST DIRECTIVE Health Care Decision (hx) 02/10/2022 AD WEST DIRECTIVE Health Care Decision (hx) 02/10/2022 AD WEST DIRECTIVE Health Care Decision (hx) 02/10/2022 AD WEST DIRECTIVE Health Care Decision (hx) 01/18/2022 AD WEST DIRECTIVE Health Care Decision (hx) 01/18/2022 AD WEST DIRECTIVE Health Care Decision (hx) 01/18/2022 AD WEST DIRECTIVE Health Care Decision (hx) 01/18/2022 AD WEST DIRECTIVE Health Care Decision (hx) 01/18/2022 AD WEST DIRECTIVE Care Teams Undercutter Relationship Specialty Start Date End Date Topher Cuadra MD [address] [place] [address] [place] [address] PCP - General 11/03/13
--- OUTSIDE RECORDS SUMMARY | 2024-12-04 12:26 | XMS_ITS | Continuity of Care Document ---
Author Organization [facility] Address [address] [place] [phone]- Care Team Providers Care Consulting Manager Name Role Phone Khalif CHOPRA, Topher Ahumada Primary Care Physician [facility] [id number] Date(s): 10/22/24 - 11/21/24 [facility] Care [address] [place] [address] Attending Physician: Chetna Louie Admitting Physician: AdmChetna carrasquillo Referring Physician: Admtr ArKarine Encounter Type: Triage Allergies, Adverse Reactions, Alerts No Known Allergies Immunizations Given and Recorded Vaccine Date Status Refusal Reason influenza virus vaccine, inactivated 10/12/24 Give n influenza virus vaccine, inactivated 01/17/15 Give n pneumococcal 23-valent vaccine 01/17/15 Given Medications amitriptyline 25 mg oral tablet 25 mg, 1, tablet, By Mouth, Daily at bedtime, # 30 tablet, Refills 5, Maintenance, 10/11/24 5:54:00 AM EST, Partial fill upon patient request if the prescription is for a schedule II opioid drug. Start Date: 10/11/24 Status: Ordered Quantity: 30.0 Unit: tablet Repeat number: 1 amLODIPine 5 mg oral tablet 10 mg, 2, tablet, By Mouth, Daily, # 30 tablet, Refills 0, Maintenance, 07/12/19 8:06:17 AM EDT Start Date: 07/12/19 Status: Ordered Quantity: 30.0 Unit: tablet Repeat number: 1 Aspirin = 81 mg, By Mouth, Daily, 0 Refills, Maintenance, 02/26/15 9:58:39 AM EDT Start Date: 02/26/15 Status: Ordered Repeat number: 1 carvedilol 12.5 mg oral tablet 12.5 mg, By Mouth, 2 times a day, # 60 tablet, Refills 0, Tot. Refills 0, Maintenance, 10/15/24 2:49:00 PM EST, Route to Pharmacy Electronically, [facility], Partial fill upon patient request if the prescription is for a schedule II opioid drug., 183, cm, 10/15/24 11:40:00 EST, Height, 125.4, kg, 10/11/24 15:52:00 EST, Dry Weight Start Date: 10/15/24 Stop Date: 11/14/24 Status: Ordered Quantity: 60.0 Unit: tablet Repeat number: 1 Centrum Silver Men's By Mouth, Daily, 0 Refills, Maintenance, 11/12/24 8:18:00 AM EST, Partial fill upon patient request if the prescription is for a schedule II opioid drug. Start Date: 11/12/24 Status: Ordered Repeat number: 1 Claritin Tablet 10 mg, By Mouth, Daily, Maintenance, 02/26/15 9:58:55 AM EDT Start Date: 02/26/15 Status: Ordered Repeat number: 1 furosemide 20 mg oral tablet 20 mg, By Mouth, Daily, # 30 tablet, Refills 0, Tot. Refills 0, Maintenance, 10/15/24 2:50:00 PM EST,Route to Pharmacy Electronically, [facility], Partial fill upon patient request if the prescription is for a schedule II opioid drug., 183, cm, 10/15/24 11:40:00 EST, Height, 125.4, kg,10/11/24 15:52:00 EST, Dry Weight Start Date: 10/15/24 Stop Date: 11/14/24 Status: Ordered Quantity: 30.0 Unit: tablet Repeat number: 1 gabapentin 300 mg oral capsule 300 mg, 1, capsule, By Mouth, Daily at bedtime, Refills 0, Maintenance, 05/11/22 8:59:00 AM EDT, Partial fill upon patient request if the prescription is for a schedule II opioid drug. Start Date: 05/11/22 Status: Ordered Repeat number: 1 gabapentin 600 mg oral tablet 1 tablet = 600 mg, By Mouth, Daily at bedtime, 0 Refills, Maintenance, 05/11/22 8:59:00 AM EDT, Partial fill upon patient request if the prescription is for a schedule II opioid drug. Start Date: 05/11/22 Status: Ordered Repeat number: 1 isosorbide mononitrate 30 mg oral tablet, extended release = 30 mg, By Mouth, Daily in AM, # 30 tablet, 0 Refills, Maintenance, 10/11/24 5:54:00 AM EST, ER Tablet, Partial fill upon patient request if the prescription is for a schedule II opioid drug. Start Date: 10/11/24 Stop Date: 11/14/24 Status: Ordered Quantity: 30.0 Unit: tablet Repeat number: 1 lidocaine-prilocaine 2.5%-2.5% topical cream 1 application, Topically, Once, To apply on port before chemotherapy, # 30 Gm, 1 Refills, Soft Stop, 11/14/24 11:47:00 AM EST, Cream, [facility], Partial fill upon patient request if the prescription is for a schedule II opioid drug., 1 application Topically Once,Instr:To apply on port before chemotherapy, 183, cm, 11/14/24 11:15:00 EST, Height, 129.9, kg, 11/14/24 11:15:00 EST, Dry Weight Start Date: 11/14/24 Status: Ordered Quantity: 30.0 Unit: g Repeat number: 2 losartan 100 mg oral tablet 1 tablet = 100 mg, By Mouth, Daily, 0 Refills, Maintenance, 11/12/24 8:17:00 AM EST, Partial fill upon patient request if the prescription is for a schedule II opioid drug. Start Date: 11/12/24 Status: Ordered Repeat number: 1 Omeprazole = 20 mg, By Mouth, Daily, 0 Refills, Maintenance, 02/26/15 9:54:54 AM EDT Start Date: 02/26/15 Status: Ordered Repeat number: 1 ondansetron 4 mg oral tablet 1 tablet = 4 mg, By Mouth, Every 8 hours, PRN Nausea & Vomiting, # 30 tablet, 0 Refills, Maintenance, 10/30/24 1:41:00 PM EST, Tablet, [facility], Partial fill upon patient request if the prescription is for a schedule II opioid drug., 183, cm, 10/25/24 14:51:00 EST, Height, 129.4, kg, 10/25/24 14:51:00 EST, Dry Weight Start Date: 10/30/24 Status: Ordered Quantity: 30.0 Unit: tablet Repeat number: 1 oxyCODONE 5 mg oral tablet See Instructions, PRN, Take 1 to 2 tablets every 4-6 hours as needed for pain, # 60 tablet, Refills0, Tot. Refills 0, Acute 11/28/24 10:00:00 AM EST, as needed for pain, 11/22/24 4:00:00 PM EST, Instructions Replace Required Details, Route to Pharmacy Electronically, [facility], Partial fill upon patient request if the prescription is for a schedule II opioid drug., 183, cm, 11/14/24 11:15:00 EST, Height, 129.9, kg, 11/14/24 11:15:00 EST, Dry Weight Start Date: 11/22/24 Stop Date: 11/28/24 Status: Ordered Quantity: 60.0 Unit: tablet Repeat number: 1 oxyCODONE 5 mg oral tablet 5 mg, 1, tablet, By Mouth, Every 6 hours, PRN, for 14 days, # 30 tablet, Refills 0, Tot. Refills 0,Acute 11/22/24 4:00:00 PM EST, as needed for pain, 11/08/24 4:00:00 PM EST, Route to Pharmacy Electronically, [facility], Partial fill upon patient request if the prescription is for a schedule II opioid drug., 183, cm, 11/08/24 15:03:00 EST, Height, 129.4, kg, 10/25/24 14:51:00 EST, Dry We ight Start Date: 11/08/24 Stop Date: 11/22/24 Status: Ordered Quantity: 30.0 Unit: tablet Repeat number: 1 prochlorperazine 5 mg oral tablet 1 tablet = 5 mg, By Mouth, 3 times a day, PRN for nausea/vomiting, # 30 tablet, 0 Refills, Maintenance, 10/30/24 1:42:00 PM EST, Tablet, [facility], Partial fill upon patient request if theprescription is for a schedule II opioid drug., 183, cm, 10/25/24 14:51:00 EST, Height, 129.4, kg, 10/25/24 14:51:00 EST, Dry Weight Start Date: 10/30/24 Status: Ordered Quantity: 30.0 Unit: tablet Repeat number: 1 Repatha SureClick 140 mg/mL subcutaneous solution INJECT 140 MG (1 ML) SUBCUTANEOUSLY EVERY 14 DAYS Start Date: 10/11/24 Status: Ordered Repeat number: 1 Problem List Condition Confirmation Course Effective Dates Status Health St atus Informant Metastatic urothelial carcinoma Confirmed 10/25/24 Active Neuropathic pain Confirmed 10/25/24 Active Obese class II Confirmed Active Social History Social History Type Response Smoking Status Never smoker; Tobacc o user in household: No; Interested in cessation: No entered on: 02/25/15 Sex Sex Representation Male (finding) Patient Care team information Care Team Personnel Name: Frances Carmichael RN Position: S RN Member Role: Primary Care Nurse Name: Yonis Berry RN Position: S RN Member Role: Primary Care Nurse Name: Topher Cuadra MD Position: Reference Physician Member Role: PCP Address: [address] [place] [address], [address] Telecom: Name: Kyara Carreon RN Position: S Onco RN Member Role: Primary Care Nurse Name: Lev Moura RN Position: S RN Member Role: Primary Care Nurse Name: Mak Purvis RN Position: [facility] Onco RN Member Role: Primary Care Nurse Care Team Related Persons Name: SANDIE STREET Name: SHONNA ROLON Name: GEREMIAS RED Insurance Providers Guarantor name: SHANT ROLON Health Plan Information #: 1 Payer: MEDICARE PART B OUTPT Member Number: NA Policy Number: NA Group Number: NA Health Plan Information #: 2 Payer: MEDEX Member Number: NA Policy Number: NA Group Number: NA
--- OUTSIDE RECORDS SUMMARY | 2024-12-04 12:26 | XMS_ITS | Continuity of Care Document ---
Author Organization [facility] ter Address [address] [place] [address]- Care Team Providers Care E Learning Designer Name Role Phone Khalif CHOPRA, Topher Ahumada Primary Care Physician [phone] Encounter 11/13/24 - 11/14/[address] [address]- Attending Physician: Not on Staff, Attending MD Referring Physician: Not on Staff, Referring MD Encounter Type: [facility] Allergies, Adverse Reactions, Alerts No Known Allergies [...] 2:49:00 PM EST, Route to Pharmacy Electronically, [facility], Partial fill upon [...] 10/15/24 2:50:00 PM EST,Route to Pharmacy Electronically, [facility], Partial fill upon patient request if [...] Soft Stop, 11/14/24 11:47:00 AM EST, Cream, [facility], Partial fill upon patient request [...] Refills, Maintenance, 10/30/24 1:41:00 PM EST, Tablet, [facility], Partial fill upon patient request [...] Replace Required Details, Route to Pharmacy Electronically, [facility], Partial fill upon patient request [...] 4:00:00 PM EST, Route to Pharmacy Electronically, [facility], Partial fill upon patient request [...] Refills, Maintenance, 10/30/24 1:42:00 PM EST, Tablet, [facility], Partial fill upon patient request [...] Position: Reference Physician Member Role: PCP Address: [address] [place] [address], [address] Telecom: Name: Kyara Carreon RN Position: [facility] Onco RN Member Role: Primary Care Nurse Name: Lev Moura RN Position: S RN Member Role: Primary Care Nurse Care Team Related Persons Name: SANDIE STRE[address] Name: SHONNA ROLON Name: GEREMIAS RED Insurance Providers Guarantor name: SHANT GONZALES Health Plan Information #: 1 Payer: MEDICARE PART B OUTPT Member Number: NA Policy Number: NA Group Number: NA Health Plan Information #: 2 Payer: MEDEX Member Number: NA Policy Number: NA Group Number: NA
== END 2024-12-04 12:02 | disposition home or self-care (01) ==
LOC: HO.HUSH 10:29
PROVIDERS: PCP Family Medicine; Visit Provider Urology
DX: C67.9 Malignant neoplasm of bladder, unspecified (principal); C79.19 Secondary malignant neoplasm of other urinary organs
CPT/HCPCS: 99213; G2211

== ENCOUNTER 2025-01-25 08:40 | Outpatient (REF) | payer MEDICARE, SELFPAY ==
--- OUTSIDE RECORDS SUMMARY | 2025-01-25 09:04 | XMS_ITS ---
Author Name [facility] Organization Unknown Care Team Organization Name Specialty Phone Email Start Date End Da te [facility] VICENTE BOSE Primary Care 09/09/20222023
--- OUTSIDE RECORDS SUMMARY | 2025-01-25 09:04 | XMS_ITS | Clinical Summary ---
Author Organization [facility] Address [address] [place] [address] Care Team Providers Care Patient Accounts Coordinator Name Role Phone Topher Cuadra MD Primary Care Provider [phone] Allergies No known active allergies Medications Medication [...] age to complete this topic Care Teams Patient Accounts Coordinator Relationship Specialty Start Date End Date Topher Cuadra MD [address] [place] [address] [place] [address] PCP - General Internal Medicine 03/03/21
--- OUTSIDE RECORDS SUMMARY | 2025-01-25 09:04 | XMS_ITS | Clinical Summary ---
Author Organization [facility] Address [address] [place] [address] Phone Care Team Providers Care Crochet Machine Operator Name Role Phone Topher Cuadra MD Primary Care Provider [phone] Allergies No known active allergies Medications amLODIPine (NORVASC) 10 mg tablet Take 1 tablet (10 mg total) by mouth 1 (one) time each day. 90 tablet 1 08/17/20 24 Active aspirin 81 mg EC tablet Take 1 tablet (81 mg total) by mouth 1 (one) time each day. Active Mounjaro 7.5 mg/0.5 mL injection every 7 (seven) days. 07/24/20 24 Active gabapentin (NEURONTIN) 600 mg tablet Take 1 tablet (600 mg total) by mouth at bedtime. With 300mg for total of 900mg 02/18/20 21 Active gabapentin (NEURONTIN) 300 mg capsule 1 capsule (300 mg total) at bedtime. With 600mg for total of 900mg Active losartan (COZAAR) 100 mg tablet Take 1 tablet (100 mg total) by mouth 1 (one) time each day. Active amitriptyline (ELAVIL) 25 mg tablet Take 1 tablet (25 mg total) by mouth. at bedtime. 06/19/20 24 Active traMADoL (ULTRAM) 50 mg tablet TAKE 1 TO 2 TABLETS BY MOUTH EVERY 8 HOURS NEEDED FOR BACK PAIN 06/29/20 24 Active omeprazole (PriLOSEC) [address] capsule Take 1 capsule (20 mg total) by mouth 1 (one) time each day. Active carvediloL (COREG) 12.5 mg tablet Take 1 tablet (12.5 mg total) by mouth 2 (two) times a day with meals. Active cetirizine (ZyrTEC) 10 mg chewable tablet Chew 1 tablet (10 mg total) 1 (one) time each day. Active multivitamin with minerals tablet Take 1 tablet by mouth 1 (one) time each day. Active furosemide (LASIX) 20 mg tablet Take 1 tablet (20 mg total) by mouth 1 (one) time each day. Active isosorbide mononitrate (IMDUR) 30 mg 24 hr tablet Take 1 tablet (30 mg total) by mouth 1 (one) time each day. Do not crush or chew. 90 tablet 2 12/06/19 25 Active evolocumab (Repatha SureClick) 140 mg/mL pen injector injectionIndicatio ns:Hyperlipidemia, unspecified hyperlipidemia type INJECT 140 MG (1 ML) SUBCUTANEOUSLY EVERY 14 DAYS 6 mL 1 12/20/19 25 Active Active Problems Problem Noted Date Diagnosed Date Urothelial carcinoma ([facility] V24, [facility] V28) 12/09/2024 Overview (12/09/2024): urothelial carcinoma of the ureter status post chemotherapy and right nephroureterectomy by Dr. Mancia at [facility] Pulmonary emphysema ([facility] V24, [facility] V28) 0 06/06/2023 Dyspnea on exertion 06/10/2022 Coronary artery disease invo lving agdaagux coronary artery of agdaagux heart without angina pectoris 12/03/2021 Overview (12/09/2024): December 1999 - angiogram status post PTCA and stenting of the proximal right coronary artery secondary to exertional angina and positive exercise stress test July 2019 - angiogram following an abnormal stress test and ultimately had a long and complex PCI of the dominant RCA with a drug eluting stent. 2022 - repeat angiogram due to breathlessness revealed three vessel disease with a iFR negative 50% LAD lesion, 70% mid left circumflex artery lesion and both a 50% proximal RCA and 80% mid RCA lesions with previous stent with ISR along with 85% mid RAMUS with collateral flow from distal circumflex to 1st RPL - addition of Imudr and subsequent negative cardiac PET stress test 2023 - reported negative stress test in [place] during admission for syncope - thought to be related to weight loss and overmedication Assessment & Plan (12/09/2024 12:10 PM EST): Catheterization in 2022 showed three vessel disease with a iFR negative 50% LAD lesion, 70% mid left circumflex artery lesion and both a 50% proximal RCA and 80% mid RCA lesions with previous stent with ISR along with 85% mid RAMUS with collateral flow from distal circumflex to 1st RPL. Imdur was added and subsequent negative cardiac PET stress test. He had a stress test that was reportedly negative in 2023 in [place]. Echocardiogram from August 2022 showed preserved LV systolic function with no RWMAs. No anginal symptoms. No statin due to previous reaction. Continue on Repatha. Continue with aspirin, amlodipine, carvedilol, furosemide, isosorbide and losartan. We discussed risk reduction through lifestyle choices including healthy diet, routine exercise and weight management. Orders: ECG 12 lead Hyperlipidemia 12/03/2021 Assessment & Plan (12/09/2024 12:10 PM EST): February 2024 - LDL 51. Continue with Repatha. Previous issue with statin therapy. Obesity 12/03/2021 Assessment & Plan (12/09/2024 12:10 PM EST): He has been losing weight. Continue with GLP1. Will reduced antihypertensives in future with further weight loss. Primary hypertension 12/03/2021 Assessment & Plan (12/09/2024 12:10 PM EST): Controlled. Continue with amlodipine, carvedilol, furosemide, isosorbide and losartan. Surgical History Surgery Date Site/Laterality Comments CYSTOSCOPY 11/19/2021 PROCEDURE: NC CYSTOURETHROSCOPY BLADDER SURGERY PROCEDURE: HISTORICAL BLADDER SURGERY NEPHRECTOMY Right PROCEDURE: HISTORICAL NEPHRECTOMY OTHER SURGICAL HISTORY PROCEDURE: HISTORY OTHER; COMMENT: Hx of heart artery stent CARDIAC CATHETERIZATION DONE ON 10/18/2022 AT [facility] INDICATIONS:Shortness of breath Medical History Medical History Date Comments GERD (gastroesophageal reflux disease) DX:GERD (gastroesophageal reflux disease) Bladder cancer ([facility]/HCC V24, [facility]/HCC V28) DX:Bladder cancer (HCC) Obesity DX:Obesity Osteoarthritis of right [...] Description 02/11/2025 10:50 AM EDT Office Visit [facility] Cardiology [facility] [address] [facility] [address] [place] [address] Victor M Amaya MD [address] [place] [address] Health Maintenance Due Date Last Done Comments DTaP,Tdap,and Td Vaccines (1 - Tdap) 1969 RSV Immunization Adult Patients (1 - Risk 60-74 years 1-dose series) [...] age to complete this topic Meningococcal B Vaccine Aged Out No l onger eligible based on patient's age to complete this topic RSV Immunization Patients Under 20 months Aged Out No longer eligible based on patient's age to complete this topic Varicella Vaccines Aged Out No longer eligible based on patient's age to complete this topic Insurance MEDICARE [facility] Advance Directives Documents on File Type Date Recorded Patient Bonding Machine Tender Expl anation Health Care Decision (hx) 02/10/2022 [...] (hx) 01/18/2022 AD WEST DIRECTIVE Care Teams Crochet Machine Operator Relationship Specialty Start Date End Date Topher Cuadra MD [address] [place] [address] [place] [address] PCP - General 11/03/13
--- OUTSIDE RECORDS SUMMARY | 2025-01-25 09:04 | XMS_ITS | Data Portability ---
Author Organization [facility] Address [address] [place] [address] Care Team Providers Care Knockdown Man Name Role Phone VICENTE BOSE Primary Care Provider Assessment Encounter Date Assessment Date Assessment LastModified [...] Details Recorded Time Stiffness of left knee [id number] 2 Active 2022 JENISE WALLACE PA-C [address], [place], [address] [facility] 10:38:52 Problem Notes None recorded. Procedures Surgical History Date Name Laterality Status Provider Name and Address Organization Details Recorded Time Knee Surgery completed Sigrid Escoto [facility] 01/20/2023 10:07:47 total nephrectomy completed Tangela Escoto [facility] 01/20/2023 10:08:05 Total knee arthroplasty completed Sigrid Escoto [facility] 01/20/2023 10:08:37 Imaging Results None recorded. [...] Code Diagnosis Note [id number] MD FABIAN Mcdaniel [facility] [address] [facility] [address] [place] [address] 01/20/2023 09:48:19 01/20/2023 10:33:53 Stiffness of left knee [id number] M25.662 Health Concerns Section Related Observation LastModified [...] here for follow-up. JENISE WALLACE PA-C [address] [facility] [address], [place], [address], [facility] 01/20/2023 10:39:32
[2025-01-25 10:16] LABS: Estimated Average Glucose 131 mg/dL; Hemoglobin A1C 154.1159 umol/L; Hemoglobin A1c % 6.2 % (<6.0); Total Hemoglobin (HGBA1C) 3520.4416 umol/L
[2025-01-25 10:30] LABS: Anion Gap 14 (12-20); Blood Urea Nitrogen 19 mg/dL (9-16); Carbon Dioxide 26 mmol/L (22-29); Chloride 109 mmol/L (96-108); Cholesterol 166 mg/dL (<200); Estimated Glomerular Filt Rate > 60; Glucose Fasting 150 mg/dL (60-99); HDL Cholesterol 30 mg/dL (>40); LDL Cholesterol Calculated 81 mg/dL (<100); Potassium 4.8 mmol/L (3.3-5.1); Sodium 144 mmol/L (135-145); Triglycerides 275 mg/dL (<150)
== END 2025-01-25 08:41 | disposition home or self-care (01) ==
LOC: HO.HMGCLDS 08:40
PROVIDERS: PCP Family Medicine; Visit Provider Family Medicine
DX: E11.9 Type 2 diabetes mellitus without complications (principal); E78.00 Pure hypercholesterolemia, unspecified; I10 Essential (primary) hypertension
CPT/HCPCS: 36415; 80051; 80061; 82565; 82947; 83036; 84520

== ENCOUNTER 2025-02-20 08:59 | Outpatient (REF) | payer MEDICARE, SELFPAY | END 2025-02-20 09:00 | disposition home or self-care (01) | LOC: HO.LAB 08:59 | PROVIDERS: PCP Family Medicine; Visit Provider Urology | DX: C67.9 Malignant neoplasm of bladder, unspecified (principal); C66.9 Malignant neoplasm of unspecified ureter; C79.19 Secondary malignant neoplasm of other urinary organs | CPT/HCPCS: 52000; 81003; 88121; 99212 ==

== ENCOUNTER 2025-02-20 08:59 | Outpatient (AMB) | payer MEDICARE, SELFPAY ==
--- NOTE | 2025-02-20 09:04 | MHC.OFFVIS ---
Intake Visit Reasons: cysto/MYRISK Intake Note: Patient is present for Cystoscopy/MYRISK Urology Medication:NONE Antibiotic Allergy:NONE Blood Thinner:ASPIRIN Lot:[id number] Exp:02/15/27 Dental Biller Required: No Allergies No Known Allergies [No Known Allergies*] Allergy (Verified 02/20/25 09:08) HPI Comments Details: Suleiman is a very pleasant male. He is a patient of Dr. Cuadra. He seen for the following urologic conditions - bladder cancer - hydrocele - lower urinary tract symptoms - penile lichen sclerosis 03/03 Upcoming [facility] visit Per Huey they will be checking germline DNA Cystoscopy today shows no abnormality Significant lower right limb edema. Information regarding inflatable device provided. Completed oncology assessment including 2nd opinion at [facility] - saw Dr. Robledo Concurring recommendation to continue with EV-Pembro - Phase 3 - data presentation late 2022 showed doubling of progression-free survival to 12.5 months median and significantly prolonged overall survival 11/03 imaging found to have metastatic disease in his lungs, spine and retroperitoneal lymph node enlargement Biopsy performed on right groin lymph node 10/22/24 Pathology reported out as metastatic squamous disease likely of urothelial origin Urine cytology rare atypical cells Reviewed prior pathology which had shown low-grade upper tract urothelial transitional disease resected in early 2018 Recurrent low-grade superficial disease within his bladder with resections in early 2020, 2021 and 2022 Imaging from 05/02 and 09/01 showing no evidence of metastatic disease or nodules within his lungs Cytology and genetic FISH 03/02 no evidence of disease Urethral recurrent low-grade superficial cancer Initial therapy with resection 04/01 completed urethral mitomycin-C with clamping per protocol Cystoscopy 11/02 NAD Bladder Cancer: High-grade superficial initial diagnosis 2017 with upper tract low-grade transitional cell - 12/29 low-grade on urethra Ongoing surveillance Bladder cancer was initially diagnosed during evaluation for microscopic hematuria - 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 Bladder intervention(s) performed 07/27 Low Grade - along course of ureter 02/25 , TURBT, with Mitomycin C, T1 invades subepthium, Low Grade 06/28 TURBT, gemcitabine instillation , multiple low grade Ta, intermediate risk. - 12/28 TURBT low-grade TA intermediate risk, 12/29 TURBT of urethral tumor low grade, 01/30 urethral tumor urothelial low-grade Recurrence Risk per EORTC Intermediate Risk. 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 - 12/28 CT urogram no evidence of recurrence Previous intravesical therapy 03/28 , BCG Induction - 6 weeks 07/28 Gemcitabine maintenance 11/29 Gemcitabine, 12/28 6 week reinduction gemcitabine, 07/31 3 week boost gemcitabine, 01/30 urethral mitomycin Planned treatment - check cystoscopy Upper tract transitional cell carcinoma right side right nephrectomy performed 2018 imaging 03/29 CT urogram normal [facility] Medical History Emphysema lung Hypertension Arthritis GERD (gastroesophageal reflux disease) History of renal cell cancer Hx of bladder cancer On beta maria antonia at home Elevated cholesterol CAD (coronary artery disease) Surgical History History of total right knee replacement Hx of cystoscopy History of total left knee replacement (TKR) Hx of heart artery stent Hx of cystoscopy History of nephrectomy, right History of bladder surgery Social History Are you a primary health care consultant to a significant other at home: No Do you presently have visiting nurse or other home services: No Patient Tobacco Use Status: Never used Tobacco Current occupational status: retired Review of Systems Const Denies chills and Denies fever(s) Card Reports no additional complaints and Denies syncope Resp Denies cough GI Denies abdominal pain and Denies heartburn Reports as per HPI and Denies change in libido Neuro Denies syncope Psych Denies change in libido Endo Denies change in libido Physical Exam Const General: cooperative, healthy appearing, comfortable and no acute distress Orientation/consciousness: patient oriented x3 HEENT Face and sinus: Yes normal facial exam Mouth: moist mucous membranes Neck Neck: Yes normal visual inspection, Yes full ROM and Yes trachea midline Chest Chest palpation & inspection: normal inspection of the chest Resp Effort & Inspection: normal respiratory effort, able to speak in complete sentences and no respiratory distress GI Inspection: Yes normal to inspection Back/Spine/Pelvis Cervical Spine: normal cervical lordosis Thoracic/Lumbar Spine: thoracic and lumbar spine normal to inspection Skin General skin exam: no rashes or lesions noted Neuro General: patient oriented x3, gait normal, tone normal and moves all extremities Extrem General: Yes normal to inspection and Yes capillary refill normal Office Procedures Cystoscopy Consent Discussed risk and benefit or proposed procedure with the patient. Information consent for procedure given to the patient. Discussed technical aspects, risks, benefits and alternatives in full. Addressed all of the patient's questions and concerns regarding the procedure. The patient demonstrated knowledge and understanding. They wish to proceed with this procedure. Preparation The patient was prepped in the usual manner. A jig fitter was present and in the room. Genitalia was prepped with betadine solution in a sterile manner. Lidocaine Jelly 2% was placed into the urethra and 16Fr flexible Olympus cystoscope was inserted into the meatus after adequate lubrication. Procedure Cystoscopy performed using a disposable Urovue digital 16 Uruguayan cystoscope. Meatus circumcised Urethra anterior urethra with some mild scarring from prior superficial cancer Prostatic Urethra unremarkable Bladder examination with retroflexion of cystoscope Bladder Orifices normal shape and position Bladder Capacity Normal Trabeculations grade 1 Cellule Formation None Diverticulum Formation None Mucosal Erythema sporadic small amount of erythema Bladder Tumor None [id number] DISPOSABLE SCOPE URO-G FLEXIBLE SCOPE Procedure code (CPT) selection complete Office Meds lidocaine HCl 2 % mucosal jelly in applicator Performing Provider: Charan Baker MD [place]forming [place] [facility] Administered by: Yonis Soto LPN on 02/20/25 09:28 Dose Route Admin Location Dispensed Lot Number Expiration Date [facility] Factory Maintenance Technician 10 mL intra-urethral 10 mL nitrofurantoin monohydrate/macrocrystals 100 mg capsule Performing Provider: Charan Baker MD Performing Location[place] [facility] Administered by: Yonis Soto LPN on 02/20/25 09:28 Dose Route Admin Location Dispensed Lot Number Expiration Date [place] Factory Maintenance Technician 100 mg PO 1 cap Results AMB Urinalysis, Automated UA Leukoctes 15 [place]/uL Last Edit by TITA Peterson on 02/20/25 09:24 UA Nitrite Negative Last Edit by TITA Peterson on 02/20/25 09:24 UA Urobilinogen 70 mg/dL Last Edit by TITA Peterson on 02/20/25 09:24 UA Protein 0.3 mg/dL Last Edit by TITA Peterson on 02/20/25 09:24 UA pH 6.0 Last Edit by Yang Fisher [facility] on 02/20/25 09:24 UA Blood 0 Robert/uL Last Edit by Yang Fisher [facility] on 02/20/25 09:24 UA Specific [place] 1.025 Last Edit by aYng Fisher [facility] on 02/20/25 09:24 UA Ketone Negative Last Edit by Yang Fisher [facility] on 02/20/25 09:24 UA Bilirubin 0 mg/dL Last Edit by TITA Peterson on 02/20/25 09:24 UA Glucose 0 mg/dL Last Edit [facility] on 02/20/25 09:24 Results Reviewed Results Reviewed: Laboratory Last Values Urine pH (Auto) 6.0 02/20/25 09:23 Specific [place] (Auto) 1.025 02/20/25 09:23 Urine Protein (Auto) 0.3 mg/dL 02/20/25 09:23 Glucose (UA)(Auto) 0 mg/dL 02/20/25 09:23 Urine Ketones (Auto) Negative 02/20/25 09:23 Urine Blood (Auto) 0 Robert/uL 02/20/25 09:23 Urine Nitrite (Auto) Negative 02/20/25 09:23 Urine Bilirubin (Auto) 0 mg/dL 02/20/25 09:23 Urine Urobilinogen (Auto) 70 mg/dL 02/20/25 09:23 Leukocyte Esterase (Auto) 15 [place]/uL 02/20/25 09:23 Assessment & Plan Assessment & Plan (1) Bladder cancer: Comment: Recurrent low-grade superficial Code(s): C67.9 - Malignant neoplasm of bladder, unspecified Category: Medical (2) Transitional cell carcinoma determined by biopsy of ureter: Comment: Right nephro ureterectomy 2018 Code(s): C66.9 - Malignant neoplasm of unspecified ureter Category: Medical (3) 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 While every effort has been made to ensure accuracy operations administrator errors may have been included. Imaging studies, laboratory and physical exam results were discussed and reviewed in detail. No major barriers to patient understanding were identified. An opportunity to ask questions regarding the treatment plan was provided. All questions were answered. The patient expressed understanding and agreement with the above treatment plan. The patient is aware they should contact our office by phone for worsening of their current condition or the appearance of new urologic symptoms. Compliance is encouraged with any medications and followup testing that is ordered. It is a privilege to participate in the urologic care of your patient. If you have any questions or concerns regarding treatment for the above conditions, or other urologic issues, please do not hesitate to contact me. The office telephone contact is [phone]. 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
--- OUTSIDE RECORDS SUMMARY | 2025-02-20 09:27 | XMS_ITS | Data Portability ---
Author Organization [facility] Address [address] [place] [id number] Care Team Providers Care Structural Worker Name Role Phone VICENTE BOSE Primary Care [...] Details Recorded Time Stiffness of left knee [id number] 2 Active 2022 JENISE WALLACE PA-C [address], [place], [address] [facility] [place] 10:38:52 Problem Notes None recorded. Procedures Surgical History Date Name Laterality Status Provider Name and Address Organization Details Recorded Time Knee Surgery completed Sigrid Escoto [facility] [place] 01/20/2023 10:07:47 total nephrectomy completed Tangela Escoto [facility] [place] 01/20/2023 10:08:05 Total knee arthroplasty completed Sigrid Escoto [facility] [place] 01/20/2023 10:08:37 Imaging Results None recorded. [...] Code Diagnosis ICD10 Code Diagnosis Note [id number] [facility] [address] [facility] [address] [place] [address] 01/20/2023 09:48:19 01/20/2023 10:33:53 Stiffness of left knee [id number] M25.662 Health Concerns Section Related Observation LastModified by Organization Detai ls LastModified Time None Recorded Concern Status LastModified by Organization Details LastModified Time None Recorded Advance Directives Directive None Recorded Payers None recorded. Notes Date Note Type Note Provider Name and Address Organization Details Recorded Time 01/20/2023 text/html This is a pleasa nt 72-year-old male here for follow-up on his [...] prescribed here for follow-up. JENISE WALLACE PA-C [address] [place] [address] [address], [place], [address], [facility] [place] 01/20/2023 10:39:32
--- OUTSIDE RECORDS SUMMARY | 2025-02-20 09:27 | XMS_ITS | Clinical Summary ---
Author Organization [facility] Address [address] [place] [address] Care Team Providers Care Gas Load Dispatcher Name Role Phone Topher Cuadra MD Primary Care Provider [phone] Allergies No known active allergies Medications Medication [...] age to complete this topic Care Teams Gas Load Dispatcher Relationship Specialty Start Date End Date Topher Cuadra MD [address] [place] [address] [place] [address] PCP - General Internal Medicine 03/03/21
--- OUTSIDE RECORDS SUMMARY | 2025-02-20 09:28 | XMS_ITS | Clinical Summary ---
Author Organization [facility] Address [address] [place] [address] Phone Care Team Providers Care Organizational Development Manager Name Role Phone Topher Cuadra MD Primary Care Provider [phone] Allergies No known active allergies Medications aspirin 81 mg EC tablet Take 1 tablet (81 mg total) by mouth 1 (one) time each day. Active Mounjaro 7.5 mg/0.5 mL injection every 7 (seven) days. 024 Active gabapentin (NEURONTIN) 600 mg tablet Take 1 tablet (600 mg total) by mouth at bedtime. With 300mg for total of 900mg 021 Active gabapentin (NEURONTIN) 300 mg capsule 1 capsule (300 mg total) at bedtime. With 600mg for total of 900mg Active losartan (COZAAR) 100 mg tablet Take 1 tablet (100 mg total) by mouth 1 (one) time each day. Active amitriptyline (ELAVIL) 25 mg tablet Take 1 tablet (25 mg total) by mouth. at bedtime. 024 Active traMADoL (ULTRAM) 50 mg tablet TAKE 1 TO 2 TABLETS BY MOUTH EVERY 8 HOURS NEEDED FOR BACK PAIN 024 Active omeprazole (PriLOSEC) [address] capsule [...] not crush or chew. 90 tablet 2 025 Active evolocumab (Repatha SureClick) 140 mg/mL pen injector injectionIndicati ons:Hyperlipidemi a, unspecified hyperlipidemia type INJECT 140 MG (1 ML) SUBCUTANEOUSLY EVERY 14 DAYS 6 mL 1 025 Active amLODIPine (NORVASC) 10 mg tablet Take 1 tablet by mouth once daily 90 tablet 1 025 Active amLODIPine (NORVASC) 10 mg tablet Take 1 tablet (10 mg total) by mouth 1 (one) time each day. 90 tablet 1 024 2024 Discontinued Active Problems Problem Noted Date Diagnosed Date Urothelial carcinoma ([facility] V24, [facility] V28) 12/09/2024 Overview (12/09/2024): urothelial carcinoma of the ureter status post chemotherapy and right nephroureterectomy by Dr. Mancia at [facility] Pulmonary emphysema (CMS/HCC V24, CMS/HCC V28) 0 06/06/2023 Dyspnea on exertion 06/10/2022 Coronary artery disease invo lving alt[place] coronary artery of alturas heart without angina pectoris 12/03/2021 Overview (12/09/2024): [...] 2023 - reported negative stress test in [place] during admission for syncope - thought to [...] that was reportedly negative in 2023 in [place]. Echocardiogram from August 2022 showed preserved LV [...] Surgery Date Site/Laterality Comments CYSTOSCOPY 11/19/2021 PROCEDURE: [place] CYSTOURETHROSCOPY BLADDER SURGERY PROCEDURE: HISTORICAL BLADDER SURGERY NEPHRECTOMY Right PROCEDURE: HISTORICAL NEPHRECTOMY OTHER SURGICAL HISTORY PROCEDURE: HISTORY OTHER; COMMENT: Hx of heart artery stent CARDIAC CATHETERIZATION DONE ON 10/18/2022 AT [facility] INDICATIONS:Shortness of breath Medical History Medical History Date Comments GERD (gastroesophageal reflux disease) DX:GERD (gastroesophageal reflux disease) Bladder cancer (CMS/HCC V24, CMS/HCC V28) DX:Bladder cancer (HCC) Obesity [...] Care Team (Late st Contact Info) Description 09/03/2025 1:30 PM EST Office Visit [facility] [address] [place] [address] Dr [address] [place] [address] Victor M Amaya MD [address] [place] [address] [place] [address] Health Maintenance Due Date Last Done Comments [...] age to complete this topic Insurance MEDICARE [facility] Advance Directives Documents on File Type Date Recorded Patient Hand Scudder Expl anation Health Care Decision (hx) 02/10/2022 [...] (hx) 01/18/2022 AD WEST DIRECTIVE Care Teams Organizational Development Manager Relationship Specialty Start Date End Date Topher Cuadra MD [address] [place] [address] [place] [id number] PCP - General 11/03/13
== END 2025-02-20 10:01 | disposition home or self-care (01) ==
LOC: HO.HUSH 09:00
PROVIDERS: PCP Family Medicine; Visit Provider Urology
DX: C67.9 Malignant neoplasm of bladder, unspecified (principal); C66.9 Malignant neoplasm of unspecified ureter; C79.19 Secondary malignant neoplasm of other urinary organs; Z13.9 Encounter for screening, unspecified
CPT/HCPCS: 52000; 99213